=== PATIENT | female | born 1930 | race Caucasian/White ===

== ENCOUNTER 2018-07-18 11:32 | Inpatient (IN) | payer MEDICARE, BC ==
--- NOTE | 2018-07-18 12:42 | RADIOLOGY REPORT (SQ) ---
EXAM DESCRIPTION: KNEE LEFT 2 VIEWS; HIP LEFT AP/LATERAL COMPLETED DATE/TIME: 07/18/2018 12:23 pm REASON FOR STUDY: LLE shortened/rotated COMPARISON: None. NUMBER OF VIEWS: Four views. TECHNIQUE: AP and lateral radiographic images acquired of the left knee. AP view of the pelvis and cross-table view of the left hip. LIMITATIONS: Patient positioning. FINDINGS: There is suboptimal patient positioning. There is diffuse osteopenia. There is a displaced, comminuted, spiral fracture through the shaft of the left femur. The pelvic ring appears intact. Orthopedic hardware is transfixing a remote fracture at the left hip . Degenerative changes are noted at the left knee. Degenerative changes also noted at the visualize d lower lumbar spine and sacroiliac joints. Suture material and surgical clips are seen at the pelvi s. IMPRESSION: Diffuse osteopenia. Displaced, comminuted, spiral fracture through the shaft of the lef t femur. TECHNICAL DOCUMENTATION: JOB ID: [id number] 2010 [employer]- All Rights Reserved Reading location - IP/workstation name: [email or web address]
--- NOTE | 2018-07-18 12:42 | RADIOLOGY REPORT (SQ) ---
EXAM DESCRIPTION: KNEE LEFT 2 VIEWS; HIP LEFT AP/LATERAL COMPLETED DATE/TIME: 07/18/2018 12:23 pm REASON FOR STUDY: LLE shortened/rotated COMPARISON: None. NUMBER OF VIEWS: Four views. TECHNIQUE: AP and lateral radiographic images acquired of the left knee. AP view of the pelvis and cross-table view of the left hip. LIMITATIONS: Patient positioning. FINDINGS: There is suboptimal patient positioning. There is diffuse osteopenia. There is a displaced, comminuted, spiral fracture through the shaft of the left femur. The pelvic ring appears intact. Orthopedic hardware is transfixing a remote fracture at the left hip . Degenerative changes are noted at the left knee. Degenerative changes also noted at the visualize d lower lumbar spine and sacroiliac joints. Suture material and surgical clips are seen at the pelvi s. IMPRESSION: Diffuse osteopenia. Displaced, comminuted, spiral fracture through the shaft of the lef t femur. TECHNICAL DOCUMENTATION: JOB ID: [id number] 2010 [employer]- All Rights Reserved Reading location - IP/workstation name: [email or web address]
[2018-07-18 12:46] LABS: ABSOLUTE EOSINOPHILS # (AUTO) 0.1 10^3/uL (0.0-0.6); ABSOLUTE LYMPHOCYTES (AUTO) 1.4 10^3/uL (0.5-4.7); ABSOLUTE MONOCYTES (AUTO) 0.7 10^3/uL (0.1-1.4); ABSOLUTE NEUT (AUTO) 4.8 10^3/uL (1.7-8.2); BASOPHILS % (AUTO) 0.2 % (0-2); EOSINOPHILS % (AUTO) 1.6 % (0-6); HEMATOCRIT 38.8 % (36.0-47.0); HEMOGLOBIN 13.1 g/dL (12.0-15.5); LYMPHOCYTES % (AUTO) 20.2 % (13-45); MEAN CORPUSCULAR HEMOGLOBIN 32.2 pg (27.0-33.4); MEAN CORPUSCULAR HGB CONC 33.7 g/dL (32.0-36.0); MEAN CORPUSCULAR VOLUME 96 fl (80-97); MONOCYTES % (AUTO) 9.6 % (3-13); PLATELET COUNT 286 10^3/uL (150-450); RED BLOOD COUNT 4.06 10^6/uL (3.72-5.28); RED CELL DISTRIBUTION WIDTH 14.2 % (11.5-14.0); SEGMENTED NEUTROPHILS % (AUTO) 68.4 % (42-78); TOTAL CELLS COUNTED % (AUTO) 100 %
[2018-07-18 13:01] LABS: ANION GAP 8 (5-19); BLOOD UREA NITROGEN 29 mg/dL (7-20); CALCIUM 9.9 mg/dL (8.4-10.2); CARBON DIOXIDE 30 mmol/L (22-30); CHLORIDE 102 mmol/L (98-107); GLUCOSE 100 mg/dL (75-110); POTASSIUM 5.3 mmol/L (3.6-5.0)
[2018-07-18 13:03] LABS: INTERNATIONAL RATION (INR) 0.92; PROTHROMBIN TIME 12.8 SEC (11.4-15.4)
[2018-07-18 13:04] LABS: PARTIAL THROMBOPLASTIN TIME 28.6 SEC (23.5-35.8)
[2018-07-18] MEDS ORDERED: MORPHINE SULFATE 10 MG/ML INJ IV ONE (13:24)
[2018-07-18] MEDS ORDERED: ONDANSETRON HCL INJ/PF 4 MG/2 ML SDV IV ONE (13:24)
[2018-07-18] MEDS ORDERED: RINGERS SOLUTION,LACTATED 1,000 ML IV ONE (13:28)
[2018-07-18] MEDS ORDERED: FENTANYL CITRATE INJ/PF 100 MCG/2 ML AMPUL IV ONE (13:54)
--- NOTE | 2018-07-18 13:55 | ER Document Report ---
ED General - General Chief Complaint: Fall Stated Complaint: LEG PAIN Time Seen by Provider: 07/18/18 11:38 TRAVEL OUTSIDE OF THE [place] IN LAST 30 DAYS: No - HPI Patient complains to provider of: Left leg pain Notes: Patient coming in after a fall expressing left leg pain. Patient that she was standing up when she twisted around to leave falling down patient states had a fall back in November had hip fracture which was repaired in [place]. Patient this time denies any loss of consciousness denies any chest pain abdominal pain. Patient states that this was a possible trip and fall but did not pass out. Patient otherwise resting comfortably upon my evaluation with a shortened left leg - Related Data Allergies/Adverse Reactions: amoxicillin [From Augmentin] Allergy (Verified 07/18/18 11:42) clavulanic acid [From Augmentin] Allergy (Verified 07/18/18 11:42) Past Medical History - Social History Smoking Status: Never Smoker Family History: None Patient has suicidal ideation: No Patient has homicidal ideation: No - Past Medical History Cardiac Medical History: Reports: Hx Hypercholesterolemia, Hx Hypertension Renal/ Medical History: Denies: Hx Peritoneal Dialysis Past Surgical History: Reports: Hx Orthopedic Surgery Review of Systems - Review of Systems Constitutional: No symptoms reported EENT: No symptoms reported Cardiovascular: No symptoms reported Respiratory: No symptoms reported Gastrointestinal: No symptoms reported Genitourinary: No symptoms reported Female Genitourinary: No symptoms reported Musculoskeletal: Other - Left leg pain Skin: No symptoms reported Hematologic/Lymphatic: No symptoms reported Neurological/Psychological: No symptoms reported -: Yes All other systems reviewed and negative Physical Exam - Vital signs Vitals: Temp 98 F 07/18/18 11:44 Interpretation: Normal - General General appearance: Appears well, Alert - HEENT Head: Normocephalic, Atraumatic Eyes: Normal Pupils: PERRL - Respiratory Respiratory status: No respiratory distress Chest status: Nontender Breath sounds: Normal Chest palpation: Normal - Cardiovascular Rhythm: Regular Heart sounds: Normal auscultation Murmur: No - Abdominal Inspection: Normal Distension: No distension Bowel sounds: Normal Tenderness: Nontender Organomegaly: No organomegaly - Back Back: Normal, Nontender - Extremities General upper extremity: Normal inspection, Nontender, Normal color, Normal ROM, Normal temperature General lower extremity: Normal inspection, Normal color, Normal temperature, Other - Tenderness palpation of the left leg with obvious shortening pulses are intact distally on the left leg and right leg unaffected - Neurological Neuro grossly intact: Yes Cognition: Normal Orientation: AAOx4 Honor Coma Scale Eye Opening: Spontaneous Honor Coma Scale Verbal: Oriented Yvon Coma Scale Motor: Obeys Commands Yvon Coma Scale Total: 15 Speech: Normal Motor strength normal: LUE, RUE, LLE, RLE Sensory: Normal - Psychological Associated symptoms: Normal affect, Normal mood - Skin Skin Temperature: Warm Skin Moisture: Dry Skin Color: Normal Course - Re-evaluation Re-evalutation: 07/18/18 15:48 X-ray shows a fracture basic laboratory studies were performed showing slight elevation of potassium no EKG changes patient was started on maintenance fluids did discuss with Dr. knott he will see the patient in consult. Patient will be admitted to the hospital staff - Vital Signs Vital signs: Temp Pulse Resp BP Pulse Ox 98.1 F 16 119/63 95 07/18/18 15:25 07/18/18 14:01 07/18/18 14:01 07/18/18 14:01 - Laboratory Result Diagrams: 07/18/18 12:09 07/18/18 12:09 Laboratory results interpreted by me: 07/18/18 07/18/18 12:09 12:09 RDW 14.2 H Potassium 5.3 H BUN 29 H Discharge - Discharge Clinical Impression: Femur fracture, left Qualifiers: Encounter type: initial encounter Condition: Good Disposition: ADMITTED INPATIENT Admitting Provider: [facility] Admitted: Telemetry
[2018-07-18] MEDS ORDERED: ONDANSETRON HCL INJ/PF 4 MG/2 ML SDV IV PRN (14:36)
[2018-07-18] MEDS ORDERED: FENTANYL CITRATE INJ/PF 100 MCG/2 ML AMPUL IV PRN (14:46)
--- NOTE | 2018-07-18 17:00 | RADIOLOGY REPORT (SQ) ---
EXAM DESCRIPTION: CT HEAD WITHOUT COMPLETED DATE/TIME: 07/18/2018 4:29 pm REASON FOR STUDY: Fall COMPARISON: None. TECHNIQUE: Axial images acquired through the brain without intravenous contrast. Images reviewed wi th bone, brain and subdural windows. Images stored on PACS. All CT scanners at this facility use dose modulation, iterative reconstruction, and/or weight based d osing when appropriate to reduce radiation dose to as low as reasonably achievable (ALARA). [facility]: Dose Right [facility]: CareDose [facility]: Dose Right [facility]: Teradose 4D [facility]: Smart Freshplum RADIATION DOSE: CT Rad equipment meets quality standard of care and radiation dose reduction techniq ues were employed. CTDIvol: 53.2 mGy. DLP: 1017 mGy-cm.mGy. LIMITATIONS: None. FINDINGS: VENTRICLES: Prominent. CEREBRUM: No mass effect. No hemorrhage. No midline shift. Areas of low density in the white matte r most likely due to chronic micro-vascular ischemic change. No evidence for acute territorial infar ction. CEREBELLUM: No hemorrhage. No alteration of density. No evidence for acute infarction. EXTRAAXIAL SPACES: Age-related involutional change. No fluid collections. ORBITS AND GLOBE: Symmetrical contour of the globes. CALVARIUM: No depressed fracture. PARANASAL SINUSES: No air-fluid level. SOFT TISSUES: No hematoma. IMPRESSION: No acute intracranial hemorrhage or depressed calvarial fracture. Chronic changes of at rophy and microvascular ischemia. EVIDENCE OF ACUTE STROKE: NO. TECHNICAL DOCUMENTATION: JOB ID: [id number] [facility] Quality ID # [id number]: Final reports with documentation of one or more dose reduction techniques (e.g., Au tomated exposure control, adjustment of the mA and/or kV according to patient size, use of iterative reconstruction technique) 2010 [employer]- All Rights Reserved Reading location - IP/workstation name: [email or web address]
--- NOTE | 2018-07-18 17:23 | PDOC H&P ---
History of Present Illness Admission Date/PCP: 07/18/18 14:51 MADDIE SORIANO PA-C Patient complains of: Fall and left thigh pain History of Present Illness: SG JEREZ is a 87 year old woman who has a history of left hip fracture repair. She states that she was in her home today moving about slowly with her walker. She states that she took a step with her left foot and then collapsed to the ground and then felt severe left thigh and hip pain. She was brought into the hospital via EMS. She states that she remembers all of the events. She did fall back against a dresser hitting her head. No current headache. The fall was not preceded by dizziness, confusion or chest pain. He has had no fevers or chills at home. No cough or body aches. She does not really know what happened and she is very frustrated as she has now fractured her left hip for the second time. In terms of the hip pain2 mg of IV morphine did not alleviate the pain. 50 mcg of fentanyl did. Keeping the hip and leg still also helps with the pain. Moving about makes it worse. The pain is severe when she feels it. She is having some left thigh cramping associated with the pain. Past Medical History Past Medical History: Hypothyroidism, L-spine compression fracture for which she is on chronic hydrocodone Cardiac Medical History: Reports: Coronary Artery Disease, Hyperlipidema, Hypertension Pulmonary Medical History: Denies: Chronic Obstructive Pulmonary Disease (COPD), Respiratory Failure EENT Medical History: Denies: None Neurological Medical History: Denies: Ischemic CVA, Multiple Sclerosis, Seizures Endocrine Medical History: Denies: Diabetes Mellitus Type 2 Renal/ Medical History: Denies: Chronic Kidney Disease Malignancy Medical History: Denies: Breast Cancer, Colorectal Cancer GI Medical History: Reports: Diverticulitis Denies: Gastroesophageal Reflux Disease Musculoskeltal Medical History: Reports: Arthritis Denies: Fibromyalgia Skin Medical History: Denies: Eczema, Psoriasis Psychiatric Medical History: Denies: Alcohol Dependency, Bipolar Disorder, Depression, General Anxiety Disorder, Substance Abuse, Tobacco Dependency Traumatic Medical History: Denies: Traumatic Brain Injury Hematology: Denies: Bleeding Tendencies Infectious Medical History: Reports: None Past Surgical History Past Surgical History: Reports: Appendectomy, Cholecystectomy - Bowel resection related to diverticulitis, tonsillectomy, Herniorrhaphy, Hysterectomy, Orthopedic Surgery Denies: Mastectomy Social History Information Source: Patient 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 He recently. She moved up to this area to live near her [id number] and her great grandchildren along with one great great grandchild. She has a daughter who lives in another city. She had a second child who is now . - Advance Directive Resuscitation Status: Full Code Surrogate healthcare decision maker:: She names her exshcpqg-nq-clw Betsey Jerez as her healthcare surrogate. She is not sure whether there is legal documentation naming her uxxoxucf-gv-iyn as her healthcare power of deputy county attorney. She thinks that both her daughter and her [id number]-qcx would work together if needed. Family History Family History: Reviewed & Not Pertinent Parental Family History Reviewed: No Children Family History Reviewed: No Sibling(s) Family History Reviewed.: No Medication/Allergy Home Medications: Aspirin [Aspirin 81 mg Chewable Tablet] 81 mg PO MOWEFR@1000 07/18/18 Atenolol [Tenormin] 25 mg PO DAILY 07/18/18 Hydrocodone Bit/Acetaminophen [Hydrocodon-Acetaminophn 10-325] 1 each PO QIDP P RN 07/18/18 Levothyroxine Sodium [Synthroid 0.1 mg Tablet] 0.1 mg PO Q6AM 07/18/18 Allergies/Adverse Reactions: amoxicillin [From Augmentin] Allergy (Verified 07/18/18 11:42) clavulanic acid [From Augmentin] Allergy (Verified 07/18/18 11:42) Review of Systems Constitutional: ABSENT: chills, fever(s), headache(s) Eyes: ABSENT: visual disturbances Ears: ABSENT: hearing changes Nose, Mouth, and Throat: ABSENT: headache(s), sore throat, vertigo Breasts: ABSENT: other - No history of breast problems Cardiovascular: ABSENT: chest pain, dyspnea on exertion, edema, orthropnea, palpitations Respiratory: ABSENT: cough, sputum Gastrointestinal: ABSENT: abdominal pain, constipation, diarrhea, dysphagia, hematemesis, nausea, vomiting Musculoskeletal: PRESENT: back pain, muscle weakness. ABSENT: joint swelling Integumentary: ABSENT: diaphoresis, wounds Neurological: PRESENT: weakness. ABSENT: confusion, dizziness, syncope, vertigo Psychiatric: ABSENT: anxiety, depression Endocrine: PRESENT: other - Is treated for hypothyroidism. ABSENT: cold intolerance, heat intolerance Hematologic/Lymphatic: ABSENT: easy bleeding, easy bruising Allergic/Immunologic: ABSENT: seasonal rhinorrhea Physical Exam Vital Signs: Temp Pulse Resp BP Pulse Ox 98.1 F 70 16 129/54 H 100 07/18/18 15:25 07/18/18 14:36 07/18/18 14:36 07/18/18 14:36 07/18/18 14:36 Intake & Output 07/17/18 07/18/18 07/19/18 06:59 06:59 06:59 Weight 54.4 kg General appearance: PRESENT: no acute distress, cooperative, well-developed, well-nourished Head exam: PRESENT: other - Patient has mild to moderate bitemporal wasting. ABSENT: atraumatic, normocephalic Eye exam: PRESENT: EOMI. ABSENT: conjunctival injection, periorbital swelling, scleral icterus Ear exam: PRESENT: normal external ear exam Mouth exam: PRESENT: moist, tongue midline Neck exam: ABSENT: tenderness Respiratory exam: PRESENT: clear to auscultation delfina, unlabored. ABSENT: rales, rhonchi, wheezes Cardiovascular exam: PRESENT: RRR, systolic murmur Pulses: PRESENT: normal radial pulses Vascular exam: PRESENT: normal capillary refill GI/Abdominal exam: PRESENT: normal bowel sounds, soft. ABSENT: ascites, distended, guarding, tenderness Rectal exam: PRESENT: deferred Gentrourinary exam: ABSENT: indwelling catheter Extremities exam: ABSENT: full ROM, pedal edema Musculoskeletal exam: PRESENT: deformity - left leg is shortened and externally rotated. ABSENT: ambulatory Neurological exam: PRESENT: alert, awake, oriented to person, oriented to place, oriented to situation, CN II-XII grossly intact. ABSENT: motor sensory deficit Psychiatric exam: PRESENT: appropriate affect. ABSENT: anxious Skin exam: PRESENT: dry, intact, warm. ABSENT: rash Results Laboratory Results: 07/18/18 12:09 07/18/18 12:09 07/18/18 07/18/18 12:09 12:09 WBC 7.0 RBC 4.06 Hgb 13.1 Hct 38.8 MCV 96 MCH 32.2 MCHC 33.7 RDW 14.2 H Plt Count 286 Seg Neutrophils % 68.4 Lymphocytes % 20.2 Monocytes % 9.6 Eosinophils % 1.6 Basophils % 0.2 Absolute Neutrophils 4.8 Absolute Lymphocytes 1.4 Absolute Monocytes 0.7 Absolute Eosinophils 0.1 Absolute Basophils 0.0 Sodium 140.0 Potassium 5.3 H Chloride 102 Carbon Dioxide 30 Anion Gap 8 BUN 29 H Creatinine 0.85 Est GFR ( Amer) > 60 Est GFR (Non-Af Amer) > 60 Glucose 100 Calcium 9.9 07/18/18 12:09 Troponin I 0.026 Impressions: Head CT 07/18/18 00:00 IMPRESSION: No acute intracranial hemorrhage or depressed calvarial fracture. Chronic changes of atrophy and microvascular ischemia. EVIDENCE OF ACUTE STROKE: NO. Hip X-Ray 07/18/18 11:36 IMPRESSION: Diffuse osteopenia. Displaced, comminuted, spiral fracture through the shaft of the left femur. Knee X-Ray 07/18/18 11:36 IMPRESSION: Diffuse osteopenia. Displaced, comminuted, spiral fracture through the shaft of the left femur. Assessment & Plan - Diagnosis (1) Femur fracture, left Qualifiers: Encounter type: initial encounter Is this a current diagnosis for this admission?: Yes Plan: She has an acute displaced comminuted spiral fracture of the left femur after a fall. Dr. Thompson with orthopedic surgery has been consulted to evaluate her. We will Place Antonio catheter in anticipation of surgery. (2) Acute pain Is this a current diagnosis for this admission?: Yes Plan: Patient received 2 mg of IV morphine in the ER which did not help her acute left leg pain at all. She then received 50 mcg of fentanyl x1. He has somewhat of a pain med tolerance given her chronic hydrocodone use for her lumbar compression fracture. I started fentanyl 25 mcg every 6 hours as needed severe pain and Tylenol for mild pain. She will probably need more aggressive pain control than this but I am starting judiciously and we will increase her meds if needed. There are also hold parameters written for the fentanyl use. (3) Hypothyroidism Is this a current diagnosis for this admission?: Yes Plan: We will continue her Synthroid (4) CAD (coronary artery disease) Is this a current diagnosis for this admission?: Yes Plan: Patient has a slightly elevated troponin at 0.2. We will trend her troponin. She is chest pain-free. We will put her on telemetry. Start her coronary artery disease medications as soon as her medication reconciliation is completed. (5) Hypercholesterolemia Is this a current diagnosis for this admission?: Yes Plan: Start her medication for hypercholesterolemia when her med rec is done. (6) Compression fracture of lumbar spine, non-traumatic Is this a current diagnosis for this admission?: Yes Plan: Patient has chronic back pain related to this. She is on chronic hydrocodone. I do not know her dose and am awaiting medication reconciliation. We will restart her home medication. (7) Fall Is this a current diagnosis for this admission?: Yes Plan: Not clear etiology. Patient did not lose consciousness. There were no symptoms which preceded her fall. Her leg got weak and she fell to the ground. She now has a hip fracture. Fall precautions in place. She will clearly need physical therapy. - Time Time Spent: 50 to 70 Minutes Anticipated discharge: Acute Rehab - Inpatient Certification Based on my medical assessment, after consideration of the patient's comorbidities, presenting symptoms, or acuity I expect that the services needed warrant INPATIENT care.: Yes I certify that my determination is in accordance with my understanding of Medicare's requirements for reasonable and necessary INPATIENT services [42 CFR 412.3e].: Yes Medical Necessity: Significant Comorbidiites Make Outpatient Treatment Too Risky, Need Close Monitoring Due to Risk of Patient Decompensation, Need for Pain Control, Need for Surgery, Risk of Complication if Not Cared For in Hospital
[2018-07-18 18:09] LABS: POTASSIUM 4.8 mmol/L (3.6-5.0)
[2018-07-18 18:21] LABS: CREATINE KINASE MB 2.22 ng/mL (<4.55)
[2018-07-18 18:22] LABS: TROPONIN I < 0.012 ng/mL
--- NOTE | 2018-07-18 19:43 | EKG REPORT ---
SEVERITY:- NORMAL ECG - SINUS RHYTHM : Confirmed by: Arlene Tolentino MD 18-Jul-2018 19:42:27
[2018-07-18] MEDS: HYDROCODONE/ACETAMINOPHEN 10-325 MG TABLET PO PRN (20:18)
[2018-07-18 23:38] LABS: CREATINE KINASE MB 1.36 ng/mL (<4.55); TROPONIN I < 0.012 ng/mL
[2018-07-18 23:42] LABS: APPEARANCE,URINE SLIGHTLY-CLOUDY; BILIRUBIN,URINE NEGATIVE (NEGATIVE); COLOR,URINE YELLOW; GLUCOSE, URINE NEGATIVE (NEGATIVE); KETONES,URINE NEGATIVE (NEGATIVE); LEUKOCYTE ESTERASE,URINE NEGATIVE (NEGATIVE); NITRITE,URINE NEGATIVE (NEGATIVE); PROTEIN,URINE NEGATIVE (NEGATIVE); URINE SPECIFIC GRAVITY 1.024
[2018-07-19] MEDS: HYDROCODONE/ACETAMINOPHEN 10-325 MG TABLET PO PRN ×3 (03:44→18:27)
[2018-07-19] MEDS: RINGERS SOLUTION,LACTATED 1,000 ML IV PRN (03:45)
[2018-07-19] MEDS: LEVOTHYROXINE SODIUM 0.1 MG TABLET PO SCH (05:27)
[2018-07-19 05:46] LABS: HEMATOCRIT 30.8 % (36.0-47.0); MEAN CORPUSCULAR HEMOGLOBIN 33.2 pg (27.0-33.4); MEAN CORPUSCULAR HGB CONC 34.9 g/dL (32.0-36.0); MEAN CORPUSCULAR VOLUME 95 fl (80-97); PLATELET COUNT 234 10^3/uL (150-450); RED BLOOD COUNT 3.23 10^6/uL (3.72-5.28); WHITE BLOOD COUNT 8.2 10^3/uL (4.0-10.5)
[2018-07-19 05:47] LABS: HEMOGLOBIN 10.7 g/dL (12.0-15.5)
[2018-07-19 06:04] LABS: ANION GAP 5 (5-19); BLOOD UREA NITROGEN 29 mg/dL (7-20); CALCIUM 8.7 mg/dL (8.4-10.2); CARBON DIOXIDE 29 mmol/L (22-30); CHLORIDE 104 mmol/L (98-107); GLUCOSE 95 mg/dL (75-110); POTASSIUM 4.5 mmol/L (3.6-5.0); SODIUM 137.7 mmol/L (137-145)
[2018-07-19 06:13] LABS: CREATINE KINASE MB 1.18 ng/mL (<4.55)
[2018-07-19 06:20] LABS: TROPONIN I < 0.012 ng/mL
[2018-07-19] MEDS: ATENOLOL 50 MG TABLET PO SCH (09:52)
[2018-07-19 11:53] LABS: HEMATOCRIT 30.5 % (36.0-47.0); HEMOGLOBIN 10.6 g/dL (12.0-15.5); MEAN CORPUSCULAR HEMOGLOBIN 32.7 pg (27.0-33.4); MEAN CORPUSCULAR HGB CONC 34.7 g/dL (32.0-36.0); MEAN CORPUSCULAR VOLUME 94 fl (80-97); PLATELET COUNT 228 10^3/uL (150-450); RED BLOOD COUNT 3.23 10^6/uL (3.72-5.28); RED CELL DISTRIBUTION WIDTH 13.8 % (11.5-14.0); WHITE BLOOD COUNT 7.4 10^3/uL (4.0-10.5)
[2018-07-19] MEDS ORDERED: FENTANYL CITRATE INJ/PF 100 MCG/2 ML AMPUL IV PRN (12:38)
--- NOTE | 2018-07-19 12:48 | PDOC PROGRESS REPORT ---
Subjective Progress Note for:: 07/19/18 Subjective:: Patient's pain has been fairly well controlled. She woke herself up last night when she moved and had severe pain but otherwise the regimen seems to be adequate. She and I discussed that the orthopedic surgeon will see her today and that she can have some food until midnight tonight. She is not having any chest pain or difficulty breathing. No fevers or chills. Has not moved her bowels since admission. Good urine output in the [place] bag. Reason For Visit: LEFT HIP AND FEMUR FRACTURE Physical Exam Vital Signs: Temp Pulse Resp BP Pulse Ox 98.5 F 70 14 101/42 L 97 07/19/18 07:48 07/19/18 07:48 07/19/18 07:48 07/19/18 07:48 07/19/18 07:48 Intake & Output 07/18/18 07/19/18 07/20/18 06:59 06:59 06:59 Intake Total 1000 Output Total 720 Balance 280 Weight 55.2 kg General appearance: PRESENT: no acute distress, cooperative, thin Head exam: PRESENT: atraumatic, normocephalic Eye exam: PRESENT: EOMI. ABSENT: conjunctival injection, scleral icterus Ear exam: PRESENT: normal external ear exam Mouth exam: PRESENT: dry mucosa Respiratory exam: PRESENT: clear to auscultation delfina, unlabored. ABSENT: rales, rhonchi, wheezes Cardiovascular exam: PRESENT: RRR, systolic murmur Pulses: PRESENT: normal radial pulses, normal dorsalis pedis pul Vascular exam: ABSENT: pallor GI/Abdominal exam: PRESENT: normal bowel sounds, soft. ABSENT: ascites, distended, guarding, tenderness Rectal exam: PRESENT: deferred Gentrourinary exam: PRESENT: indwelling catheter Extremities exam: ABSENT: pedal edema Musculoskeletal exam: PRESENT: deformity - left leg shortened and ext rotated Neurological exam: PRESENT: alert, awake, oriented to person, oriented to place, oriented to situation, CN II-XII grossly intact, other - sensation intact in let foot, able to move her toes Psychiatric exam: PRESENT: appropriate affect. ABSENT: anxious Results Laboratory Results: 07/19/18 11:29 07/19/18 04:47 07/18/18 07/18/18 07/18/18 12:09 12:09 17:27 WBC 7.0 RBC 4.06 Hgb 13.1 Hct 38.8 MCV 96 MCH 32.2 MCHC 33.7 RDW 14.2 H Plt Count 286 Seg Neutrophils % 68.4 Lymphocytes % 20.2 Monocytes % 9.6 Eosinophils % 1.6 Basophils % 0.2 Absolute Neutrophils 4.8 Absolute Lymphocytes 1.4 Absolute Monocytes 0.7 Absolute Eosinophils 0.1 Absolute Basophils 0.0 Sodium 140.0 Potassium 5.3 H 4.8 Chloride 102 Carbon Dioxide 30 Anion Gap 8 BUN 29 H Creatinine 0.85 Est GFR ( Amer) > 60 Est GFR (Non-Af Amer) > 60 Glucose 100 Calcium 9.9 Magnesium TSH Urine Color Urine Appearance Urine pH Ur Specific [place] Urine Protein Urine Glucose (UA) Urine Ketones Urine Blood Urine Nitrite Ur Leukocyte Esterase Urine WBC (Auto) Urine RBC (Auto) 07/18/18 07/19/18 07/19/18 23:24 04:47 05:25 WBC 8.2 RBC 3.23 L Hgb 10.7 L D Hct 30.8 L MCV 95 MCH 33.2 MCHC 34.9 RDW 14.0 Plt Count 234 Seg Neutrophils % Lymphocytes % Monocytes % Eosinophils % Basophils % Absolute Neutrophils Absolute Lymphocytes Absolute Monocytes Absolute Eosinophils Absolute Basophils Sodium 137.7 Potassium 4.5 Chloride 104 Carbon Dioxide 29 Anion Gap 5 BUN 29 H Creatinine 0.87 Est GFR ( Amer) > 60 Est GFR (Non-Af Amer) > 60 Glucose 95 Calcium 8.7 Magnesium 2.0 TSH Urine Color YELLOW Urine Appearance SLIGHTLY-CLOUDY Urine pH 5.0 Ur Specific [place] 1.024 Urine Protein NEGATIVE Urine Glucose (UA) NEGATIVE Urine Ketones NEGATIVE Urine Blood LARGE H Urine Nitrite NEGATIVE Ur Leukocyte Esterase NEGATIVE Urine WBC (Auto) 7 Urine RBC (Auto) 120 07/19/18 07/19/18 05:25 11:29 WBC 7.4 RBC 3.23 L Hgb 10.6 L Hct 30.5 L MCV 94 MCH 32.7 MCHC 34.7 RDW 13.8 Plt Count 228 Seg Neutrophils % Lymphocytes % Monocytes % Eosinophils % Basophils % Absolute Neutrophils Absolute Lymphocytes Absolute Monocytes Absolute Eosinophils Absolute Basophils Sodium Potassium Chloride Carbon Dioxide Anion Gap BUN Creatinine Est GFR ( Amer) Est GFR (Non-Af Amer) Glucose Calcium Magnesium TSH 0.90 Urine Color Urine Appearance Urine pH Ur Specific [place] Urine Protein Urine Glucose (UA) Urine Ketones Urine Blood Urine Nitrite Ur Leukocyte Esterase Urine WBC (Auto) Urine RBC (Auto) 07/18/18 07/18/18 07/18/18 12:09 17:27 17:27 Creatine Kinase 93 CK-MB (CK-2) 2.22 Troponin I 0.026 < 0.012 07/18/18 07/18/18 07/19/18 23:05 23:05 05:25 Creatine Kinase 83 81 CK-MB (CK-2) 1.36 Troponin I < 0.012 07/19/18 05:25 Creatine Kinase CK-MB (CK-2) 1.18 Troponin I < 0.012 Impressions: Head CT 07/18/18 00:00 IMPRESSION: No acute intracranial hemorrhage or depressed calvarial fracture. Chronic changes of atrophy and microvascular ischemia. EVIDENCE OF ACUTE STROKE: NO. Hip X-Ray 07/18/18 11:36 IMPRESSION: Diffuse osteopenia. Displaced, comminuted, spiral fracture through the shaft of the left femur. Knee X-Ray 07/18/18 11:36 IMPRESSION: Diffuse osteopenia. Displaced, comminuted, spiral fracture through the shaft of the left femur. Assessment & Plan - Diagnosis (1) Femur fracture, left Qualifiers: Encounter type: initial encounter Is this a current diagnosis for this admission?: Yes Plan: I spoke with Dr. Thompson this morning. He will be in to see her today. He has reviewed her x-rays and the surgery may be really complicated in that this is a refracture of the left hip. He may need help from a colleague and he is thinking that she will go to the OR tomorrow. I will let her eat and we will make her n.p.o. at midnight. We discussed DVT prophylaxis and she dropped her hemoglobin several points so I will not give her a dose of heparin today. I started her on a right leg SCD. (2) Acute pain Is this a current diagnosis for this admission?: Yes Plan: She is on her regular as needed Vicodin for her chronic back pain. 12.5 mcg of fentanyl IV every 6 hours is available for severe pain. (3) Hypothyroidism Is this a current diagnosis for this admission?: Yes Plan: Her Synthroid has been restarted. (4) CAD (coronary artery disease) Is this a current diagnosis for this admission?: Yes Plan: Aspirin on hold for drop in hemoglobin, anticipated bleeding during surgery and will restart KIYA, hopefully tomorrow. Beta-mariola restarted. Echocardiogram ordered for preop evaluation. (5) Hypercholesterolemia Is this a current diagnosis for this admission?: Yes Plan: Home medications started (6) Compression fracture of lumbar spine, non-traumatic Is this a current diagnosis for this admission?: Yes Plan: She uses Vicodin 1 tab p.o. every 6 hours as needed pain, that has been ordered. (7) Fall Is this a current diagnosis for this admission?: Yes Plan: Not entirely clear etiology, it is possible she just got weak and fell. Urinalysis shows blood and a few white cells. I do not think it is likely but I will check a urine culture just in case she has an infection that needs to be treated. When she fell she hit her head against the back of a piece of furniture. CT scan of the head shows no acute changes including no fracture and no bleeding. - Time Time Spent with patient: 25-34 minutes Anticipated discharge: Acute Rehab
--- NOTE | 2018-07-19 12:54 | PDOC CONSULTATION ---
Consultation Consult Date: 07/18/18 Consult reason:: Left femur fracture History of Present Illness Admission Date/PCP: 07/18/18 14:51 MADDIE SORIANO PA-C History of Present Illness: SG OSHEA is a 87 year old female who states that she was turning in some of the felt pain and fell to the ground. Was unable to stand up and get up. She states she ambulates with a walker. She states in November [address] underwent ORIF of her left hip fracture. Currently has moved from [place] to [facility]. Denies any numbness or tingling or paresthesias. Complains of deformity of the left lower extremity and 5 out of 5 pain and muscle spasms in the left thigh. Past Medical History Cardiac Medical History: Reports: Coronary Artery Disease, Hyperlipidema, Hypertension Pulmonary Medical History: Denies: Chronic Obstructive Pulmonary Disease (COPD), Respiratory Failure EENT Medical History: Denies: None Neurological Medical History: Denies: Ischemic CVA, Multiple Sclerosis, Seizures Endocrine Medical History: Denies: Diabetes Mellitus Type 2 Renal/ Medical History: Denies: Chronic Kidney Disease Malignancy Medical History: Denies: Breast Cancer, Colorectal Cancer GI Medical History: Reports: Diverticulitis Denies: Gastroesophageal Reflux Disease Musculoskeltal Medical History: Reports: Arthritis Denies: Fibromyalgia Skin Medical History: Denies: Eczema, Psoriasis Psychiatric Medical History: Denies: Alcohol Dependency, Bipolar Disorder, Depression, General Anxiety Disorder, Substance Abuse, Tobacco Dependency Traumatic Medical History: Denies: Traumatic Brain Injury Hematology: Denies: Bleeding Tendencies Infectious Medical History: Reports: None Past Surgical History Past Surgical History: Reports: Appendectomy, Cholecystectomy - Bowel resection related to diverticulitis, tonsillectomy, Herniorrhaphy, Hysterectomy, Orthopedic Surgery Denies: Mastectomy Social History Lives with: Family Smoking Status: Never Smoker Frequency of Alcohol Use: None Hx Recreational Drug Use: No Drugs: None Hx Prescription Drug Abuse: No - Advance Directive Resuscitation Status: Full Code Family History Family History: Reviewed & Not Pertinent Parental Family History Reviewed: No Children Family History Reviewed: No Sibling(s) Family History Reviewed.: No Medication/Allergy Home Medications: Aspirin [Aspirin 81 mg Chewable Tablet] 81 mg PO MOWEFR@1000 07/18/18 Atenolol [Tenormin] 25 mg PO DAILY 07/18/18 Hydrocodone Bit/Acetaminophen [Hydrocodon-Acetaminophn 10-325] 1 each PO QIDP PRN 07/18/18 Levothyroxine Sodium [Synthroid 0.1 mg Tablet] 0.1 mg PO Q6AM 07/18/18 Allergies/Adverse Reactions: amoxicillin [From Augmentin] Allergy (Verified 07/18/18 11:42) clavulanic acid [From Augmentin] Allergy (Verified 07/18/18 11:42) Review of Systems Review of Systems: Constitutional: [PRESENT: as per HPI. ABSENT: chills, fever(s), headache(s), weight gain, weight loss] Eyes: [ABSENT: visual disturbances] Ears: [ABSENT: hearing changes] Cardiovascular: [ABSENT: chest pain, dyspnea on exertion, edema, orthropnea, p alpitations] Respiratory: [ABSENT: cough, hemoptysis] Gastrointestinal: [ABSENT: abdominal pain, constipation, diarrhea, hematemesis, hematochezia, nausea, vomiting] Genitourinary: [ABSENT: dysuria, hematuria] Musculoskeletal: As per HPI Integumentary: [ABSENT: rash, wounds] Neurological: [ABSENT: abnormal gait, abnormal speech, confusion, dizziness, focal weakness, syncope] Psychiatric: [ABSENT: anxiety, depression, homicidal ideation, suicidal ideation] Endocrine: [ABSENT: cold intolerance, heat intolerance, menstrual abnormalities, polydipsia, polyuria] Hematologic/Lymphatic: [ABSENT: easy bleeding, easy bruising, lymphadenopathy] Physical Exam Vital Signs: Temp Pulse Resp BP Pulse Ox 36.9 C 70 14 101/42 L 97 07/19/18 07:48 07/19/18 07:48 07/19/18 07:48 07/19/18 07:48 07/19/18 07:48 Intake & Output 07/18/18 07/19/18 07/20/18 06:59 06:59 06:59 Intake Total 1000 Output Total 720 Balance 280 Weight 55.2 kg General appearance: PRESENT: no acute distress, thin Eye exam: PRESENT: EOMI, other - White sclera with symmetric pupils. ABSENT: nystagmus Respiratory exam: PRESENT: symmetrical, unlabored. ABSENT: tachypnea Vascular exam: PRESENT: normal capillary refill GI/Abdominal exam: PRESENT: soft. ABSENT: tenderness Neurological exam: PRESENT: alert, awake, oriented to person, oriented to place, oriented to time Psychiatric exam: PRESENT: appropriate affect, normal mood Skin exam: PRESENT: intact. ABSENT: erythema, rash, skin tears Adult Front & Back Image: 1 - Left lower extremity is short and externally rotated. She is able to extend and flex her digits and ankle with good sensation light touch and decent capillary refill. Skin warmth is symmetric to the other extremity. Tenderness to palpation over the left thigh. Pain with any attempted motion of the left lower extremity above the knee. Results Laboratory Results: 07/19/18 11:29 07/19/18 04:47 07/18/18 07/18/18 07/18/18 12:09 12:09 17:27 WBC 7.0 RBC 4.06 Hgb 13.1 Hct 38.8 MCV 96 MCH 32.2 MCHC 33.7 RDW 14.2 H Plt Count 286 Seg Neutrophils % 68.4 Lymphocytes % 20.2 Monocytes % 9.6 Eosinophils % 1.6 Basophils % 0.2 Absolute Neutrophils 4.8 Absolute Lymphocytes 1.4 Absolute Monocytes 0.7 Absolute Eosinophils 0.1 Absolute Basophils 0.0 Sodium 140.0 Potassium 5.3 H 4.8 Chloride 102 Carbon Dioxide 30 Anion Gap 8 BUN 29 H Creatinine 0.85 Est GFR ( Amer) > 60 Est GFR (Non-Af Amer) > 60 Glucose 100 Calcium 9.9 Magnesium TSH Urine Color Urine Appearance Urine pH Ur Specific [place] Urine Protein Urine Glucose (UA) Urine Ketones Urine Blood Urine Nitrite Ur Leukocyte Esterase Urine WBC (Auto) Urine RBC (Auto) 07/18/18 07/19/18 07/19/18 23:24 04:47 05:25 WBC 8.2 RBC 3.23 L Hgb 10.7 L D Hct 30.8 L MCV 95 MCH 33.2 MCHC 34.9 RDW 14.0 Plt Count 234 Seg Neutrophils % Lymphocytes % Monocytes % Eosinophils % Basophils % Absolute Neutrophils Absolute Lymphocytes Absolute Monocytes Absolute Eosinophils Absolute Basophils Sodium 137.7 Potassium 4.5 Chloride 104 Carbon Dioxide 29 Anion Gap 5 BUN 29 H Creatinine 0.87 Est GFR ( Amer) > 60 Est GFR (Non-Af Amer) > 60 Glucose 95 Calcium 8.7 Magnesium 2.0 TSH Urine Color YELLOW Urine Appearance SLIGHTLY-CLOUDY Urine pH 5.0 Ur Specific [place] 1.024 Urine Protein NEGATIVE Urine Glucose (UA) NEGATIVE Urine Ketones NEGATIVE Urine Blood LARGE H Urine Nitrite NEGATIVE Ur Leukocyte Esterase NEGATIVE Urine WBC (Auto) 7 Urine RBC (Auto) 120 07/19/18 07/19/18 05:25 11:29 WBC 7.4 RBC 3.23 L Hgb 10.6 L Hct 30.5 L MCV 94 MCH 32.7 MCHC 34.7 RDW 13.8 Plt Count 228 Seg Neutrophils % Lymphocytes % Monocytes % Eosinophils % Basophils % Absolute Neutrophils Absolute Lymphocytes Absolute Monocytes Absolute Eosinophils Absolute Basophils Sodium Potassium Chloride Carbon Dioxide Anion Gap BUN Creatinine Est GFR ( Amer) Est GFR (Non-Af Amer) Glucose Calcium Magnesium TSH 0.90 Urine Color Urine Appearance Urine pH Ur Specific [place] Urine Protein Urine Glucose (UA) Urine Ketones Urine Blood Urine Nitrite Ur Leukocyte Esterase Urine WBC (Auto) Urine RBC (Auto) 07/18/18 07/18/18 07/18/18 12:09 17:27 17:27 Creatine Kinase 93 CK-MB (CK-2) 2.22 Troponin I 0.026 < 0.012 07/18/18 07/18/18 07/19/18 23:05 23:05 05:25 Creatine Kinase 83 81 CK-MB (CK-2) 1.36 Troponin I < 0.012 07/19/18 05:25 Creatine Kinase CK-MB (CK-2) 1.18 Troponin I < 0.012 Impressions: Head CT 07/18/18 00:00 IMPRESSION: No acute intracranial hemorrhage or depressed calvarial fracture. Chronic changes of atrophy and microvascular ischemia. EVIDENCE OF ACUTE STROKE: NO. Hip X-Ray 07/18/18 11:36 IMPRESSION: Diffuse osteopenia. Displaced, comminuted, spiral fracture through the shaft of the left femur. Knee X-Ray 07/18/18 11:36 IMPRESSION: Diffuse osteopenia. Displaced, comminuted, spiral fracture through the shaft of the left femur. Status: Image reviewed by me - Patient has a spiral fracture of the left femur below her previous hardware for hip fracture. She has a dynamic hip screw in place and intact the lag screw is fully retracted and collapsed Assessment & Plan - Plan Summary Plan Summary: 87-year-old female with left spiral femur fracture. Recently had a dynamic hip screw placed for her left intertrochanteric hip fracture. This is seem to have healed with a malunion. Currently we will continue bedrest and pain control. Spoke with hospitalist who is going to clear the patient for surgery for tomorrow. I discussed the case with Dr. Vance who will do the surgery with me. Discussed several options to tackle the fracture below her previous fixation. Discussed the risk and benefits with the patient and the patient has agreed to consent and proceed with surgery.
--- NOTE | 2018-07-19 16:28 | XCELERA REPORT ---
[address] [address] Transthoracic Echocardiogram Report Name: SG OSHEA Age: 87 yrs Gender: Female : 1930 Patient Status: Inpatient Patient Location: [facility]A Study Date: 07/19/2018 02:23 PM Height: 61 in Weight: 121 lb BSA: 1.5 m2 Reason For Study: preop for surgery tomorrow am Ordering Physician: SHAYNE PERRY Performed By: Kushal Bailey Interpretation Summary Study quality suboptimal. LVEF appears normal visually at 60-65%. RV systolic function appears normal. The transmitral spectral Doppler flow pattern is abnormal for age There is a trace amount of mitral regurgitation AV leaflets appear focally calcified with doppler data provided not suggestive of any signifivccant stenosis. There is a mild to moderate amount of tricuspid regurgitation Right ventricular systolic pressure is normal. The inferior vena cava appeared normal size. The aortic root is normal size. MMode/2D Measurements & Calculations RVDd: 1.6 cm LVIDd: 3.2 cm FS: 47.7 % Ao root diam: 2.8 cm IVSd: 0.78 cm LVIDs: 1.7 cm EDV(Teich): 41.8 ml LVPWd: 0.77 cm ESV(Teich): 8.2 ml Ao root area: 6.3 cm2 LA dimension: 2.5 cm EF(Teich): 80.3 % LVOT diam: 1.3 cm LVOT area: 1.3 cm2 Doppler Measurements & Calculations MV E max natan: MV P1/2t max natan: Ao V2 max: LV V1 max P.0 cm/sec 73.8 cm/sec 131.9 cm/sec 3.9 mmHg MV A max natan: MV P1/2t: 69.3 msec Ao max P.0 mmHg LV V1 max: 72.1 cm/sec MVA(P1/2t): 3.2 cm2 JERI(V,D): 0.96 cm2 99.2 cm/sec MV E/A: 0.55 MV dec slope: 312.3 cm/sec2 MV dec time: 0.21 sec PA V2 max: TR max natan: MV P1/2t-pr_phl: 107.2 cm/sec 271.5 cm/sec 69.3 msec PA max P.6 mmHgTR max P.5 mmHg Left Ventricle The left ventricular ejection fraction is normal. LV EF is 60-65%. The transmitral spectral Doppler flow pattern is abnormal for age. Right Ventricle The right ventricular systolic function is normal. Atria Right atrium not well visualized secondary to technical limitations. The left atrium is not well visualized secondary to technical limitations. Mitral Valve There is mild mitral annular calcification. MV leaflets focally thickened but appear to open well. There is a trace amount of mitral regurgitation. Aortic Valve The aortic valve is not well visualized secondary to technical limitations. Focal calcification. There is a peak gradient of 7 mm of Hg. Tricuspid Valve The tricuspid valve is not well visualized secondary to technical limitations. There is a mild to moderate amount of tricuspid regurgitation. Right ventricular systolic pressure is normal. Pulmonic Valve The pulmonic valve is not well visualized. Great Vessels The aortic root is not well visualized. The aortic root is normal size. The inferior vena cava appeared normal. Effusions Pericardium not well visualized but no obvious pericardial effusion noted in availabe images. : SHAYNE PERRY Sanjay
[2018-07-19] MEDS: ACETAMINOPHEN 325 MG TABLET PO PRN (22:48)
[2018-07-20] MEDS: RINGERS SOLUTION,LACTATED 1,000 ML IV PRN (00:45)
[2018-07-20] MEDS: LEVOTHYROXINE SODIUM 0.1 MG TABLET PO SCH (05:42)
[2018-07-20 06:25] LABS: HEMATOCRIT 29.4 % (36.0-47.0); HEMOGLOBIN 10.2 g/dL (12.0-15.5); MEAN CORPUSCULAR HEMOGLOBIN 32.8 pg (27.0-33.4); MEAN CORPUSCULAR HGB CONC 34.7 g/dL (32.0-36.0); MEAN CORPUSCULAR VOLUME 95 fl (80-97); PLATELET COUNT 185 10^3/uL (150-450); RED BLOOD COUNT 3.11 10^6/uL (3.72-5.28); RED CELL DISTRIBUTION WIDTH 13.5 % (11.5-14.0); WHITE BLOOD COUNT 10.7 10^3/uL (4.0-10.5)
[2018-07-20 06:44] LABS: ANION GAP 6 (5-19); BLOOD UREA NITROGEN 29 mg/dL (7-20); CALCIUM 8.4 mg/dL (8.4-10.2); CARBON DIOXIDE 27 mmol/L (22-30); CHLORIDE 104 mmol/L (98-107); GLUCOSE 105 mg/dL (75-110); POTASSIUM 4.4 mmol/L (3.6-5.0); SODIUM 136.9 mmol/L (137-145)
[2018-07-20] MEDS: HYDROCODONE/ACETAMINOPHEN 10-325 MG TABLET PO PRN (08:16)
[2018-07-20] MEDS ORDERED: RINGERS SOLUTION,LACTATED 1,000 ML IV PRN ×2 (08:32→13:29)
[2018-07-20] MEDS ORDERED: TRANEXAMIC ACID INJ/PF 1,000 MG/10 ML SDV IV PRN (08:33)
[2018-07-20] MEDS ORDERED: CEFAZOLIN 2 GM/D5W RTU 2 GM/50 ML RTUPB IV PRN (08:35)
[2018-07-20] MEDS: ATENOLOL 50 MG TABLET PO SCH (10:00)
[2018-07-20] MEDS ORDERED: KETAMINE HCL INJ 500 MG/10 ML VIAL ONE (10:55)
[2018-07-20] MEDS ORDERED: PROPOFOL INJ 200 MG/20 ML VIAL IV ONE (10:55)
[2018-07-20] MEDS ORDERED: ONDANSETRON HCL INJ/PF 4 MG/2 ML SDV ONE (10:55)
[2018-07-20] MEDS ORDERED: MIDAZOLAM 2 MG/2 ML INJ ONE (10:55)
[2018-07-20] MEDS ORDERED: EPINEPHRINE INJ/PF 1 MG/1 ML AMPULE ONE (10:56)
[2018-07-20] MEDS ORDERED: CEFAZOLIN INJ 1 GM VIAL ONE (10:59)
[2018-07-20] MEDS ORDERED: THROMBIN (BOVINE) TOPICAL 5000 UNIT VIAL ONE (11:17)
[2018-07-20] MEDS ORDERED: BUPIVACAINE HCL 0.5 % INJ/PF 30 ML SDV ONE (11:56)
[2018-07-20] MEDS ORDERED: VANCOMYCIN HCL INJ 1000 MG VIAL ONE (11:57)
--- NOTE | 2018-07-20 13:41 | Operative Report ---
Operative Report DATE OF SURGERY: 07/20/18 PREOPERATIVE DIAGNOSIS: Left femur fracture POSTOPERATIVE DIAGNOSIS: Periprosthetic left femur fracture OPERATION: Open reduction internal fixation left femur fracture SURGEON: KEV JENKINS 1ST SOILS TECHNICIAN: ELMER OLIVAREZ ANESTHESIA: Spinal ESTIMATED BLOOD LOSS: 600 PROCEDURE: With the patient in a lateral position on the operating table left lower extremities prepped and draped in sterile fashion. A longitudinal incision was made over the lateral surface of the thigh and sharp dissection was carried incision down to the iliotibial band. The iliotibial band is split and the underlying vastus lateralis was retracted anteriorly. The underlying fracture is visualized. It was reduced under direct visualization and held in place with a combination of bur brooch and [place] clamps. Subsequently a [place]on 16 hole stainless steel wide 4.5 mm large fragment plate is applied to the lateral sawyer rface of the femur and held in place with fracture reduction's clamps. It secured distally with a combination of 4 screws including locking screws and bicortical screws. Intermediately its anchored by bicortical screws and proximally the plate overlaps the existing DHS plate. 2 cerclage cables were then placed over the midportion of the fracture which is highly comminuted. The fracture reduction and the hardware placement checked fluoroscopically and felt to be adequate. Wound is irrigated. Hemostasis obtained with electrocautery. The wound was closed in layers with interrupted Vicryl followed by jami. A sterile compressive dressings applied and the patient's return to PACU satisfactory condition.
[2018-07-20] MEDS ORDERED: FENTANYL CITRATE INJ/PF 100 MCG/2 ML AMPUL IV PRN ×2 (13:43)
[2018-07-20] MEDS ORDERED: DIPHENHYDRAMINE HCL 50 MG/ML VIAL IV PRN (13:43)
[2018-07-20] MEDS ORDERED: MEPERIDINE HCL/PF INJ 25 MG/1 ML DISP.SYRIN IV PRN (13:43)
[2018-07-20 15:09] LABS: APPEARANCE,URINE TURBID; BILIRUBIN,URINE NEGATIVE (NEGATIVE); COLOR,URINE YELLOW; GLUCOSE, URINE NEGATIVE (NEGATIVE); KETONES,URINE NEGATIVE (NEGATIVE); LEUKOCYTE ESTERASE,URINE MODERATE (NEGATIVE); NITRITE,URINE POSITIVE (NEGATIVE); PROTEIN,URINE >=500 mg/dL (NEGATIVE); URINE SPECIFIC GRAVITY 1.022; UROBILINOGEN,URINE NEGATIVE mg/dL (<2.0)
[2018-07-20] MEDS: OXYCODONE HCL IR 5 MG TABLET PO PRN (15:59)
--- NOTE | 2018-07-20 16:05 | RADIOLOGY REPORT (SQ) ---
EXAM DESCRIPTION: FEMUR LEFT; NO CHG FLUORO COMPLETED DATE/TIME: 07/20/2018 3:34 pm REASON FOR STUDY: ORIF LEFT FEMUR ASST WITH FLUORO IN OR COMPARISON: Left hip and knee films 07/18/2018 FLUOROSCOPY TIME: 0.5 minutes 3 digital C-arm images saved to PACS. TECHNIQUE: Intra-operative images acquired during surgical procedure to evaluate progress. NUMBER OF IMAGES: 3 C-arm images LIMITATIONS: None. FINDINGS: Imaging during ORIF left femur fracture with fixation plate and multiple screws/cerclage w ires IMPRESSION: IMAGE(S) OBTAINED DURING PROCEDURE. COMMENT: Quality ID 145: Final reports for procedures using fluoroscopy that document radiation exp osure indices, or exposure time and number of fluorographic images (if radiation exposure indices are not available) Please consult full operative report of the attending physician for description of the procedure. TECHNICAL DOCUMENTATION: JOB ID: [id number] [employer]- All Rights Reserved Reading location - IP/workstation name: [email or web address]
--- NOTE | 2018-07-20 16:05 | RADIOLOGY REPORT (SQ) ---
EXAM DESCRIPTION: FEMUR LEFT; NO CHG FLUORO COMPLETED DATE/TIME: 07/20/2018 3:34 pm REASON FOR STUDY: ORIF LEFT FEMUR ASST WITH FLUORO IN OR COMPARISON: Left hip and knee films 07/18/2018 FLUOROSCOPY TIME: 0.5 minutes 3 digital C-arm images saved to PACS. TECHNIQUE: Intra-operative images acquired during surgical procedure to evaluate progress. NUMBER OF IMAGES: 3 C-arm images LIMITATIONS: None. FINDINGS: Imaging during ORIF left femur fracture with fixation plate and multiple screws/cerclage w ires IMPRESSION: IMAGE(S) OBTAINED DURING PROCEDURE. COMMENT: Quality ID 145: Final reports for procedures using fluoroscopy that document radiation exp osure indices, or exposure time and number of fluorographic images (if radiation exposure indices are not available) Please consult full operative report of the attending physician for description of the procedure. TECHNICAL DOCUMENTATION: JOB ID: [id number] [employer]- All Rights Reserved Reading location - IP/workstation name: [email or web address]
[2018-07-20] MEDS: MORPHINE SULFATE 10 MG/ML INJ IV PRN ×2 (16:16→18:31)
--- NOTE | 2018-07-20 16:43 | PDOC PROGRESS REPORT ---
Subjective Progress Note for:: 07/20/18 Subjective:: The patient is an 87-year-old female with a past medical history significant for CAD, hypertension, hyperlipidemia, arthritis, hypothyroidism, L-spine compression fracture, chronic pain for which she is on hydrocodone as admitted 07/18/18 for left femur fracture. Patient was seen on morning rounds with her family present. She is found resting in bed comfortably on room air. She reports that her pain is well controlled at present is looking forward to her operative repair today. She denies fever, chills, chest pain, palpitations, dyspnea, orthopnea, abdominal pain, nausea vomiting and diarrhea. She has no other questions or concerns at this time. No concerns per nursing. Reason For Visit: ORIF OF LEFT FEMUR Physical Exam Vital Signs: Temp Pulse Resp BP Pulse Ox 98 F 82 19 132/74 H 100 07/20/18 15:00 07/20/18 15:00 07/20/18 15:00 07/20/18 15:00 07/20/18 15:00 Intake & Output 07/19/18 07/20/18 07/21/18 06:59 06:59 06:59 Intake Total 1000 1520 4100 Output Total 720 1000 2300 Balance 130 076 6770 Weight 55.2 kg 58.4 kg General appearance: PRESENT: no acute distress, cooperative, thin, well-de veloped Head exam: PRESENT: atraumatic, normocephalic Eye exam: PRESENT: conjunctiva pink, EOMI, PERRLA. ABSENT: scleral icterus Ear exam: PRESENT: normal external ear exam Mouth exam: PRESENT: moist, tongue midline Neck exam: ABSENT: carotid bruit, JVD, lymphadenopathy, thyromegaly Respiratory exam: PRESENT: clear to auscultation delfina, symmetrical, unlabored. ABSENT: rales, rhonchi, wheezes Cardiovascular exam: PRESENT: RRR. ABSENT: diastolic murmur, rubs, systolic murmur Pulses: PRESENT: normal dorsalis pedis pul Vascular exam: PRESENT: normal capillary refill GI/Abdominal exam: PRESENT: normal bowel sounds, soft. ABSENT: distended, guar ding, mass, organolmegaly, rebound, tenderness Rectal exam: PRESENT: deferred Gentrourinary exam: PRESENT: indwelling catheter Extremities exam: PRESENT: other - LLE tenderness; shortened and externally rotated. ABSENT: calf tenderness, clubbing, pedal edema Neurological exam: PRESENT: alert, awake, oriented to person, oriented to place, oriented to time, oriented to situation, CN II-XII grossly intact. ABSENT: motor sensory deficit Psychiatric exam: PRESENT: appropriate affect, normal mood. ABSENT: homicidal ideation, suicidal ideation Skin exam: PRESENT: dry, intact, warm. ABSENT: cyanosis, rash Results Laboratory Results: 07/20/18 05:46 07/20/18 05:46 07/19/18 07/20/18 07/20/18 15:45 05:46 05:46 WBC 10.7 H RBC 3.11 L Hgb 10.2 L Hct 29.4 L MCV 95 MCH 32.8 MCHC 34.7 RDW 13.5 Plt Count 185 Sodium 136.9 L Potassium 4.4 Chloride 104 Carbon Dioxide 27 Anion Gap 6 BUN 29 H Creatinine 0.85 Est GFR ( Amer) > 60 Est GFR (Non-Af Amer) > 60 Glucose 105 Calcium 8.4 Magnesium 1.9 Urine Color Urine Appearance Urine pH Ur Specific [place] Urine Protein Urine Glucose (UA) Urine Ketones Urine Blood Urine Nitrite Ur Leukocyte Esterase Urine WBC (Auto) Urine RBC (Auto) Blood Type O POSITIVE Antibody Screen NEGATIVE 07/20/18 14:43 WBC RBC Hgb Hct MCV MCH MCHC RDW Plt Count Sodium Potassium Chloride Carbon Dioxide Anion Gap BUN Creatinine Est GFR ( Amer) Est GFR (Non-Af Amer) Glucose Calcium Magnesium Urine Color YELLOW Urine Appearance TURBID Urine pH 9.0 Ur Specific [place] 1.022 Urine Protein >=500 H Urine Glucose (UA) NEGATIVE Urine Ketones NEGATIVE Urine Blood SMALL H Urine Nitrite POSITIVE H Ur Leukocyte Esterase MODERATE H Urine WBC (Auto) >182 Urine RBC (Auto) 99 Blood Type Antibody Screen 07/18/18 07/18/18 07/18/18 12:09 17:27 17:27 Creatine Kinase 93 CK-MB (CK-2) 2.22 Troponin I 0.026 < 0.012 07/18/18 07/18/18 07/19/18 23:05 23:05 05:25 Creatine Kinase 83 81 CK-MB (CK-2) 1.36 Troponin I < 0.012 07/19/18 05:25 Creatine Kinase CK-MB (CK-2) 1.18 Troponin I < 0.012 Impressions: Head CT 07/18/18 00:00 IMPRESSION: No acute intracranial hemorrhage or depressed calvarial fracture. Chronic changes of atrophy and microvascular ischemia. EVIDENCE OF ACUTE STROKE: NO. Hip X-Ray 07/18/18 11:36 IMPRESSION: Diffuse osteopenia. Displaced, comminuted, spiral fracture through the shaft of the left femur. Knee X-Ray 07/18/18 11:36 IMPRESSION: Diffuse osteopenia. Displaced, comminuted, spiral fracture through the shaft of the left femur. Femur X-Ray 07/20/18 00:00 IMPRESSION: IMAGE(S) OBTAINED DURING PROCEDURE. Fluoroscopy 07/20/18 00:00 IMPRESSION: IMAGE(S) OBTAINED DURING PROCEDURE. Assessment & Plan - Diagnosis (1) Femur fracture, left Qualifiers: Encounter type: initial encounter Is this a current diagnosis for this admission?: Yes Plan: To the OR today for orthopedic repair by Dr. Donna Robles and Dr. Vance. Will defer DVT prophylaxis to orthopedics expertise. Analgesics as needed for pain. Physical therapy when approved by Ortho. Discharge planning is consulted; patient will require short-term rehabilitation at discharge. (2) UTI (urinary tract infection) Qualifiers: Urinary tract infection type: acute cystitis Is this a current diagnosis for this admission?: Yes Plan: Urinalysis is positive for UTI; protein, blood, nitrite, leukoesterase, >182 WBCs. Culture pending. Received IV Vanc and Cefazolin by Ortho; more than adequate coverage for likely Gm neg cause. Will adjust/continue antibiotics as cultures indicate. (3) CAD (coronary artery disease) Is this a current diagnosis for this admission?: Yes Plan: Preop EKG and Echo acceptable. Continue daily ASA. Cardiac diet. (4) Fall Is this a current diagnosis for this admission?: Yes Plan: Patient reported that she became weak and fell. Head CT was negative for acute changes. Urinalysis does not suggest urinary tract infection; cultures pending. Antibiotics as above. Gentle IV fluids. Fall precautions. Physical therapy per orthopedics recommendations. Monitor for sedation related to opiate medications. (5) Hypothyroidism Is this a current diagnosis for this admission?: Yes Plan: Continue home dose Synthroid. - Time Time Spent with patient: Less than 15 minutes Medications reviewed and adjusted accordingly: Yes Anticipated discharge: SNF Within: within 48 hours - Inpatient Certification Based on my medical assessment, after consideration of the patient's comorbidities, presenting symptoms, or acuity I expect that the services needed warrant INPATIENT care.: Yes I certify that my determination is in accordance with my understanding of Medicare's requirements for reasonable and necessary INPATIENT services [42 CFR 412.3e].: Yes Medical Necessity: Need for Surgery
[2018-07-20] MEDS ORDERED: TRANEXAMIC ACID INJ/PF 1,000 MG/10 ML SDV IV ONE (17:00)
[2018-07-20] MEDS: CEFAZOLIN 2 GM/D5W RTU 2 GM/50 ML RTUPB IV SCH (17:47)
[2018-07-20] MEDS: ACETAMINOPHEN 325 MG TABLET PO PRN (18:08)
[2018-07-21] MEDS ORDERED: VANCOMYCIN HCL 1,000 MG in DEXTROSE 5%-WATER 250 ML IV ONE (01:29)
[2018-07-21 01:51] LABS: APPEARANCE,URINE CLOUDY; BILIRUBIN,URINE NEGATIVE (NEGATIVE); COLOR,URINE YELLOW; GLUCOSE, URINE NEGATIVE (NEGATIVE); KETONES,URINE 20 mg/dL (NEGATIVE); LEUKOCYTE ESTERASE,URINE LARGE (NEGATIVE); NITRITE,URINE POSITIVE (NEGATIVE); PROTEIN,URINE 100 mg/dL (NEGATIVE); URINE SPECIFIC GRAVITY 1.027; UROBILINOGEN,URINE NEGATIVE mg/dL (<2.0)
[2018-07-21] MEDS: CEFAZOLIN 2 GM/D5W RTU 2 GM/50 ML RTUPB IV SCH (02:28)
[2018-07-21 05:46] LABS: BLOOD UREA NITROGEN 23 mg/dL (7-20); CALCIUM 8.2 mg/dL (8.4-10.2); CARBON DIOXIDE 26 mmol/L (22-30); CHLORIDE 104 mmol/L (98-107); GLUCOSE 117 mg/dL (75-110)
[2018-07-21 05:47] LABS: ANION GAP 6 (5-19); SODIUM 135.8 mmol/L (137-145)
[2018-07-21] MEDS: LEVOTHYROXINE SODIUM 0.1 MG TABLET PO SCH (05:59)
[2018-07-21 06:13] LABS: HEMATOCRIT 36.2 % (36.0-47.0); MEAN CORPUSCULAR HEMOGLOBIN 31.7 pg (27.0-33.4); MEAN CORPUSCULAR HGB CONC 34.4 g/dL (32.0-36.0); MEAN CORPUSCULAR VOLUME 92 fl (80-97); PLATELET COUNT 143 10^3/uL (150-450); RED BLOOD COUNT 3.92 10^6/uL (3.72-5.28); RED CELL DISTRIBUTION WIDTH 14.3 % (11.5-14.0); WHITE BLOOD COUNT 16.3 10^3/uL (4.0-10.5)
[2018-07-21 06:16] LABS: HEMOGLOBIN 12.4 g/dL (12.0-15.5)
--- NOTE | 2018-07-21 07:07 | PDOC PROGRESS REPORT ---
Subjective Progress Note for:: 07/21/18 Reason For Visit: ORIF OF LEFT FEMUR 87-year-old white female postop day 1 status post open reduction internal fixation of a left periprosthetic femur fracture. Patient complaining of minor discomfort this morning. Physical Exam Vital Signs: Temp Pulse Resp BP Pulse Ox 36.7 C 82 17 116/51 L 98 07/20/18 23:35 07/21/18 02:00 07/20/18 23:35 07/20/18 23:35 07/20/18 23:35 Intake & Output 07/20/18 07/21/18 07/22/18 06:59 06:59 06:59 Intake Total 1520 4150 Output Total 1000 2700 Balance 520 1450 Weight 58.4 kg 58.2 kg General appearance: PRESENT: no acute distress, mild distress Head exam: PRESENT: normocephalic Respiratory exam: PRESENT: unlabored Cardiovascular exam: PRESENT: RRR Pulses: PRESENT: +1 pedal pulses bilateral Vascular exam: PRESENT: normal capillary refill GI/Abdominal exam: PRESENT: soft Rectal exam: PRESENT: deferred Extremities exam: PRESENT: other - Left lower extremity dressing is notable for intact and clean compressive dressing to mid thigh. The OpSite proximal to this has moderate bloody drainage. Distal neurovascular examination is intact. Neurological exam: PRESENT: alert, awake, oriented to person, oriented to place, oriented to time, oriented to situation. ABSENT: motor sensory deficit Skin exam: PRESENT: dry, intact, warm. ABSENT: cyanosis, rash Results Laboratory Results: 07/21/18 05:07 07/21/18 05:07 07/19/18 07/20/18 07/21/18 15:45 14:43 01:26 WBC RBC Hgb Hct MCV MCH MCHC RDW Plt Count Sodium Potassium Chloride Carbon Dioxide Anion Gap BUN Creatinine Est GFR ( Amer) Est GFR (Non-Af Amer) Glucose Calcium Urine Color YELLOW YELLOW Urine Appearance TURBID CLOUDY Urine pH 9.0 5.0 Ur Specific [place] 1.022 1.027 Urine Protein >=500 H 100 H Urine Glucose (UA) NEGATIVE NEGATIVE Urine Ketones NEGATIVE 20 H Urine Blood SMALL H MODERATE H Urine Nitrite POSITIVE H POSITIVE H Ur Leukocyte Esterase MODERATE H LARGE H Urine WBC (Auto) >182 >182 Urine RBC (Auto) 99 42 Blood Type O POSITIVE Antibody Screen NEGATIVE 07/21/18 07/21/18 05:07 05:07 WBC 16.3 H RBC 3.92 Hgb 12.4 D Hct 36.2 MCV 92 MCH 31.7 MCHC 34.4 RDW 14.3 H Plt Count 143 L Sodium 135.8 L Potassium 4.0 Chloride 104 Carbon Dioxide 26 Anion Gap 6 BUN 23 H Creatinine 0.71 Est GFR ( Amer) > 60 Est GFR (Non-Af Amer) > 60 Glucose 117 H Calcium 8.2 L Urine Color Urine Appearance Urine pH Ur Specific [place] Urine Protein Urine Glucose (UA) Urine Ketones Urine Blood Urine Nitrite Ur Leukocyte Esterase Urine WBC (Auto) Urine RBC (Auto) Blood Type Antibody Screen 07/18/18 07/18/18 07/18/18 12:09 17:27 17:27 Creatine Kinase 93 CK-MB (CK-2) 2.22 Troponin I 0.026 < 0.012 07/18/18 07/18/18 07/19/18 23:05 23:05 05:25 Creatine Kinase 83 81 CK-MB (CK-2) 1.36 Troponin I < 0.012 07/19/18 05:25 Creatine Kinase CK-MB (CK-2) 1.18 Troponin I < 0.012 Impressions: Head CT 07/18/18 00:00 IMPRESSION: No acute intracranial hemorrhage or depressed calvarial fracture. Chronic changes of atrophy and microvascular ischemia. EVIDENCE OF ACUTE STROKE: NO. Hip X-Ray 07/18/18 11:36 IMPRESSION: Diffuse osteopenia. Displaced, comminuted, spiral fracture through the shaft of the left femur. Knee X-Ray 07/18/18 11:36 IMPRESSION: Diffuse osteopenia. Displaced, comminuted, spiral fracture through the shaft of the left femur. Femur X-Ray 07/20/18 00:00 IMPRESSION: IMAGE(S) OBTAINED DURING PROCEDURE. Fluoroscopy 07/20/18 00:00 IMPRESSION: IMAGE(S) OBTAINED DURING PROCEDURE. Status: Imported from PACS Assessment & Plan - Diagnosis (1) Femur fracture, left Qualifiers: Encounter type: initial encounter Femur location: shaft Fracture type: closed Fracture morphology: comminuted Fracture alignment: displaced Qualified Code(s): S72.352A - Displaced comminuted fracture of shaft of left femur, initial encounter for closed fracture Is this a current diagnosis for this admission?: Yes Plan: Patient can be mobilized with physical therapy and a touchdown weightbearing res triction on the left lower extremity. Dressing can be changed on a as needed basis. Compressive dressing to be removed tomorrow. (2) UTI (urinary tract infection) Qualifiers: Urinary tract infection type: acute cystitis Is this a current diagnosis for this admission?: Yes Plan: Patient's urinary cultures are growing Proteus. Patient started on Cipro floxacillin. - Time Time Spent with patient: 15-24 minutes Anticipated discharge: SNF Within: when bed available
[2018-07-21] MEDS: ACETAMINOPHEN 325 MG TABLET PO PRN ×2 (07:45→17:07)
[2018-07-21] MEDS: OXYCODONE HCL IR 5 MG TABLET PO PRN ×2 (07:46→17:08)
[2018-07-21] MEDS: ASPIRIN 81 MG TABLET, ENT COATED PO SCH (10:53)
[2018-07-21] MEDS: ATENOLOL 50 MG TABLET PO SCH (10:53)
[2018-07-21] MEDS: CIPROFLOXACIN HCL 750 MG TABLET PO SCH ×2 (10:54→22:46)
[2018-07-21] MEDS ORDERED: MAGNESIUM HYDROXIDE SUSP 30 ML UDCUP PO PRN (16:24)
[2018-07-21] MEDS ORDERED: BISACODYL 10 MG SUPP.RECT PR ONE (17:30)
[2018-07-21] MEDS: SENNOSIDES/DOCUSATE 8.6-50 MG 1 EACH TABLET PO SCH (18:31)
--- NOTE | 2018-07-21 20:24 | PDOC PROGRESS REPORT ---
Subjective Progress Note for:: 07/21/18 Subjective:: The patient is an 87-year-old female with a past medical history significant for CAD, hypertension, hyperlipidemia, arthritis, hypothyroidism, L-spine compression fracture, chronic pain for which she is on hydrocodone as admitted 07/18/18 for left femur fracture. The patient was seen this morning on rounds. She is resting comfortably in bed. She states she has minimal pain while at rest. Her pain is exacerbated with movement (when working with PT/OT). The patient states she is happy with her pain regimen. Working with discharge planning to make arrangements for acute rehab. Reason For Visit: ORIF OF LEFT FEMUR Physical Exam Vital Signs: Temp Pulse Resp BP Pulse Ox 98.1 F 93 17 116/51 L 98 07/20/18 23:35 07/20/18 23:35 07/20/18 23:35 07/20/18 23:35 07/20/18 23:35 Intake & Output 07/19/18 07/20/18 07/21/18 06:59 06:59 06:59 Intake Total 1000 1520 4150 Output Total 720 1000 2700 Balance 583 985 3270 Weight 55.2 kg 58.4 kg 58.2 kg General appearance: PRESENT: no acute distress, well-developed, well-nourished Eye exam: PRESENT: conjunctiva pink, PERRLA Mouth exam: PRESENT: moist, tongue midline Neck exam: PRESENT: full ROM Respiratory exam: PRESENT: clear to auscultation delfina, symmetrical, unlabored Cardiovascular exam: PRESENT: RRR Pulses: PRESENT: normal radial pulses, normal dorsalis pedis pul Vascular exam: PRESENT: normal capillary refill GI/Abdominal exam: PRESENT: soft. ABSENT: distended Rectal exam: PRESENT: deferred Extremities exam: ABSENT: full ROM, joint swelling Musculoskeletal exam: PRESENT: other - slight external rotation of LLE. ABSENT: ambulatory, full ROM Neurological exam: PRESENT: alert, altered, oriented to person, oriented to place, oriented to time, oriented to situation Psychiatric exam: PRESENT: appropriate affect Skin exam: PRESENT: dry, intact, normal color Results Laboratory Results: 07/20/18 05:46 07/20/18 05:46 07/19/18 07/20/18 07/20/18 15:45 05:46 05:46 WBC 10.7 H RBC 3.11 L Hgb 10.2 L Hct 29.4 L MCV 95 MCH 32.8 MCHC 34.7 RDW 13.5 Plt Count 185 Sodium 136.9 L Potassium 4.4 Chloride 104 Carbon Dioxide 27 Anion Gap 6 BUN 29 H Creatinine 0.85 Est GFR ( Amer) > 60 Est GFR (Non-Af Amer) > 60 Glucose 105 Calcium 8.4 Magnesium 1.9 Urine Color Urine Appearance Urine pH Ur Specific [place] Urine Protein Urine Glucose (UA) Urine Ketones Urine Blood Urine Nitrite Ur Leukocyte Esterase Urine WBC (Auto) Urine RBC (Auto) Blood Type O POSITIVE Antibody Screen NEGATIVE 07/20/18 07/21/18 14:43 01:26 WBC RBC Hgb Hct MCV MCH MCHC RDW Plt Count Sodium Potassium Chloride Carbon Dioxide Anion Gap BUN Creatinine Est GFR ( Amer) Est GFR (Non-Af Amer) Glucose Calcium Magnesium Urine Color YELLOW YELLOW Urine Appearance TURBID CLOUDY Urine pH 9.0 5.0 Ur Specific [place] 1.022 1.027 Urine Protein >=500 H 100 H Urine Glucose (UA) NEGATIVE NEGATIVE Urine Ketones NEGATIVE 20 H Urine Blood SMALL H MODERATE H Urine Nitrite POSITIVE H POSITIVE H Ur Leukocyte Esterase MODERATE H LARGE H Urine WBC (Auto) >182 >182 Urine RBC (Auto) 99 42 Blood Type Antibody Screen 07/18/18 07/18/18 07/18/18 12:09 17:27 17:27 Creatine Kinase 93 CK-MB (CK-2) 2.22 Troponin I 0.026 < 0.012 07/18/18 07/18/18 07/19/18 23:05 23:05 05:25 Creatine Kinase 83 81 CK-MB (CK-2) 1.36 Troponin I < 0.012 07/19/18 05:25 Creatine Kinase CK-MB (CK-2) 1.18 Troponin I < 0.012 Impressions: Head CT 07/18/18 00:00 IMPRESSION: No acute intracranial hemorrhage or depressed calvarial fracture. Chronic changes of atrophy and microvascular ischemia. EVIDENCE OF ACUTE STROKE: NO. Hip X-Ray 07/18/18 11:36 IMPRESSION: Diffuse osteopenia. Displaced, comminuted, spiral fracture through the shaft of the left femur. Knee X-Ray 07/18/18 11:36 IMPRESSION: Diffuse osteopenia. Displaced, comminuted, spiral fracture through the shaft of the left femur. Femur X-Ray 07/20/18 00:00 IMPRESSION: IMAGE(S) OBTAINED DURING PROCEDURE. Fluoroscopy 07/20/18 00:00 IMPRESSION: IMAGE(S) OBTAINED DURING PROCEDURE. Status: Imported from PACS Assessment & Plan - Diagnosis (1) Femur fracture, left Qualifiers: Encounter type: initial encounter Femur location: shaft Fracture type: closed Fracture morphology: comminuted Fracture alignment: displaced Qualified Code(s): S72.352A - Displaced comminuted fracture of shaft of left femur, initial encounter for closed fracture Is this a current diagnosis for this admission?: Yes Plan: POD#1 ORIF Will defer DVT prophylaxis to orthopedics expertise. Analgesics as needed for pain. PT/OT Discharge planning is consulted; patient will require short-term rehabilitation at discharge. (2) UTI (urinary tract infection) Qualifiers: Urinary tract infection type: acute cystitis Is this a current diagnosis for this admission?: Yes Plan: Urinalysis is positive for UTI; protein, blood, nitrite, leukoesterase, >182 WBCs. Culture pending. Received IV Vanc and Cefazolin by Ortho; more than adequate coverage for likely Gm neg cause. Continue Cipro for UTI (3) Hypothyroidism Is this a current diagnosis for this admission?: Yes Plan: Continue home dose Synthroid. (4) CAD (coronary artery disease) Is this a current diagnosis for this admission?: Yes Plan: Preop EKG and Echo acceptable. Continue daily ASA. Cardiac diet. (5) Fall Is this a current diagnosis for this admission?: Yes Plan: Patient reported that she became weak and fell. Head CT was negative for acute changes. Antibiotics as above. Gentle IV fluids. Fall precautions. Physical therapy per orthopedics recommendations. Monitor for sedation related to opiate medications. - Time Time Spent with patient: 15-24 minutes Medications reviewed and adjusted accordingly: Yes Anticipated discharge: Acute Rehab Within: within 36 hours - Inpatient Certification Based on my medical assessment, after consideration of the patient's comorbidities, presenting symptoms, or acuity I expect that the services needed warrant INPATIENT care.: Yes I certify that my determination is in accordance with my understanding of Medicare's requirements for reasonable and necessary INPATIENT services [42 CFR 412.3e].: Yes Medical Necessity: Risk of Complication if Not Cared For in Hospital
[2018-07-22] MEDS: ACETAMINOPHEN 325 MG TABLET PO PRN (03:42)
[2018-07-22 05:47] LABS: HEMATOCRIT 34.2 % (36.0-47.0); HEMOGLOBIN 11.7 g/dL (12.0-15.5); MEAN CORPUSCULAR HEMOGLOBIN 31.8 pg (27.0-33.4); MEAN CORPUSCULAR HGB CONC 34.3 g/dL (32.0-36.0); MEAN CORPUSCULAR VOLUME 93 fl (80-97); PLATELET COUNT 153 10^3/uL (150-450); RED BLOOD COUNT 3.69 10^6/uL (3.72-5.28); RED CELL DISTRIBUTION WIDTH 14.4 % (11.5-14.0); WHITE BLOOD COUNT 13.9 10^3/uL (4.0-10.5)
[2018-07-22] MEDS: LEVOTHYROXINE SODIUM 0.1 MG TABLET PO SCH (05:53)
--- NOTE | 2018-07-22 07:26 | PDOC PROGRESS REPORT ---
Subjective Progress Note for:: 07/22/18 Reason For Visit: ORIF OF LEFT FEMUR 87-year-old white female postop day 2 status post open reduction internal fixation left femur fracture. Patient more comfortable today. Physical Exam Vital Signs: Temp Pulse Resp BP Pulse Ox 36.8 C 72 16 90/55 L 97 07/22/18 00:00 07/22/18 00:00 07/22/18 00:00 07/22/18 00:00 07/22/18 00:00 Intake & Output 07/21/18 07/22/18 07/23/18 06:59 06:59 06:59 Intake Total 4450 961 Output Total 2700 750 Balance 1750 211 Weight 58.2 kg 62.8 kg General appearance: PRESENT: no acute distress, mild distress Head exam: PRESENT: normocephalic Respiratory exam: PRESENT: unlabored Cardiovascular exam: PRESENT: RRR Pulses: PRESENT: +1 pedal pulses bilateral Vascular exam: PRESENT: normal capillary refill GI/Abdominal exam: PRESENT: soft Rectal exam: PRESENT: deferred Extremities exam: PRESENT: other - Compression dressing removed from left lower extremity. Nursing to change the underlying OpSite dressing which is saturated proximally. Neurological exam: PRESENT: alert, awake, oriented to person, oriented to place, oriented to time, oriented to situation. ABSENT: motor sensory deficit Psychiatric exam: PRESENT: appropriate affect, normal mood. ABSENT: homicidal ideation, suicidal ideation Skin exam: PRESENT: dry, intact, warm. ABSENT: cyanosis, rash Results Laboratory Results: 07/22/18 04:53 07/21/18 05:07 07/19/18 07/22/18 15:45 04:53 WBC 13.9 H RBC 3.69 L Hgb 11.7 L Hct 34.2 L MCV 93 MCH 31.8 MCHC 34.3 RDW 14.4 H Plt Count 153 Blood Type O POSITIVE Antibody Screen NEGATIVE 07/18/18 07/18/18 07/18/18 12:09 17:27 17:27 Creatine Kinase 93 CK-MB (CK-2) 2.22 Troponin I 0.026 < 0.012 07/18/18 07/18/18 07/19/18 23:05 23:05 05:25 Creatine Kinase 83 81 CK-MB (CK-2) 1.36 Troponin I < 0.012 07/19/18 05:25 Creatine Kinase CK-MB (CK-2) 1.18 Troponin I < 0.012 Impressions: Head CT 07/18/18 00:00 IMPRESSION: No acute intracranial hemorrhage or depressed calvarial fracture. Chronic changes of atrophy and microvascular ischemia. EVIDENCE OF ACUTE STROKE: NO. Hip X-Ray 07/18/18 11:36 IMPRESSION: Diffuse osteopenia. Displaced, comminuted, spiral fracture through the shaft of the left femur. Knee X-Ray 07/18/18 11:36 IMPRESSION: Diffuse osteopenia. Displaced, comminuted, spiral fracture through the shaft of the left femur. Femur X-Ray 07/20/18 00:00 IMPRESSION: IMAGE(S) OBTAINED DURING PROCEDURE. Fluoroscopy 07/20/18 00:00 IMPRESSION: IMAGE(S) OBTAINED DURING PROCEDURE. Status: Imported from PACS Assessment & Plan - Diagnosis (1) Femur fracture, left Qualifiers: Encounter type: initial encounter Femur location: shaft Fracture type: closed Fracture morphology: comminuted Fracture alignment: displaced Qualified Code(s): S72.352A - Displaced comminuted fracture of shaft of left femur, initial encounter for closed fracture Is this a current diagnosis for this admission?: Yes Plan: Mobilized with physical therapy on restriction of weightbearing (2) UTI (urinary tract infection) Qualifiers: Urinary tract infection type: acute cystitis Is this a current diagnosis for this admission?: Yes Plan: On oral antibiotics - Time Time Spent with patient: 15-24 minutes Anticipated discharge: SNF Within: when bed available
[2018-07-22] MEDS: ASPIRIN 81 MG TABLET, ENT COATED PO SCH (09:57)
[2018-07-22] MEDS: SENNOSIDES/DOCUSATE 8.6-50 MG 1 EACH TABLET PO SCH (09:57)
[2018-07-22] MEDS: CIPROFLOXACIN HCL 750 MG TABLET PO SCH (09:58)
[2018-07-22] MEDS ORDERED: ASPIRIN 81 MG TABLET, CHEWABLE PO SCH (10:00)
--- NOTE | 2018-07-22 10:48 | PDOC TRANSFER SUMMARY ---
General Admission Date/PCP: 07/18/18 14:51 MADDIE SORIANO PA-C Admission Date: 07/18/18 Transfer Date: 07/22/18 Resuscitation Status: Full Code - Transfer Diagnosis (1) Femur fracture, left Is this a current diagnosis for this admission?: Yes (2) UTI (urinary tract infection) Is this a current diagnosis for this admission?: Yes (3) Hypothyroidism Is this a current diagnosis for this admission?: Yes (4) CAD (coronary artery disease) Is this a current diagnosis for this admission?: Yes (5) Fall Is this a current diagnosis for this admission?: Yes - Transfer Medications Home Medications: Atenolol [Tenormin] 25 mg PO DAILY 07/18/18 Levothyroxine Sodium [Synthroid 0.1 mg Tablet] 0.1 mg PO Q6AM 07/18/18 Transfer Medications: Current Medications Acetaminophen (Tylenol 325 Mg Tablet) 650 mg PO Q4HP PRN PRN Reason: MILD PAIN Stop: 08/17/18 14:35 Last Admin: 07/22/18 03:42 Dose: 650 mg Documented by: Aspirin (Ecotrin 81 Mg Ec Tablet) 81 mg PO DAILY [facility] Stop: 08/20/18 09:59 Last Admin: 07/22/18 09:57 Dose: 81 mg Documented by: Atenolol (Tenormin 50 Mg Tablet) 25 mg PO DAILY [facility] Stop: 08/18/18 09:59 Last Admin: 07/21/18 10:53 Dose: 25 mg Documented by: Ciprofloxacin (Cipro 750 Mg Tablet) 750 mg PO Q12 [facility] Stop: 07/28/18 09:59 Last Admin: 07/22/18 09:58 Dose: 750 mg Documented by: Lactated Ringer's (Lactated Ringers 1000 Ml Iv Soln) 1,000 mls @ 150 mls/hr IV CONTINUOUS PRN PRN Reason: THIS MED IS NOT "PRN" Stop: 08/19/18 13:28 Levothyroxine Sodium (Synthroid 0.1 Mg Tablet) 0.1 mg PO Q6AM [facility] Stop: 08/18/18 05:59 Last Admin: 07/22/18 05:53 Dose: 0.1 mg Documented by: Magnesium Hydroxide (Milk Of Magnesia 30 Ml Udcup) 30 ml PO Q6HP PRN PRN Reason: FOR CONSTIPATION Stop: 08/20/18 16:23 Oxycodone HCl (Oxy-Ir 5 Mg Tablet) 5 mg PO Q6HP PRN PRN Reason: PAIN Stop: 07/27/18 14:02 Last Admin: 07/21/18 17:08 Dose: 5 mg Documented by: Senna/Docusate Sodium (Senna Plus Tablet) 2 each PO BID ESTEBAN Stop: 08/20/18 17:59 Last Admin: 07/22/18 09:57 Dose: 2 each Documented by: Sodium Chloride (Saline Flush 2.5 Ml Monoject Prefil Syrin) 2.5 ml IV Q8 ESTEBAN Stop: 08/17/18 21:59 Last Admin: 07/22/18 05:53 Dose: 2.5 ml Documented by: Sodium Chloride (Saline Flush 2.5 Ml Monoject Prefil Syrin) 2.5 ml IV Q8 [facility] Stop: 08/19/18 13:59 Last Admin: 07/22/18 05:54 Dose: Not Given Documented by: - Allergies Allergies/Adverse Reactions: amoxicillin [From Augmentin] Allergy (Verified 07/18/18 11:42) clavulanic acid [From Augmentin] Allergy (Verified 07/18/18 11:42) - Diet/Activity Discharge Diet: As Tolerated Hospital Course Hospital Course: H&P: SG OSHEA is a 87 year old woman who has a history of left hip fracture repair. She states that she was in her home today moving about slowly with her walker. She states that she took a step with her left foot and then collapsed to the ground and then felt severe left thigh and hip pain. She was brought into the hospital via EMS. She states that she remembers all of the events. She did fall back against a dresser hitting her head. No current headache. The fall was not preceded by dizziness, confusion or chest pain. He has had no fevers or chills at home. No cough or body aches. She does not really know what happened and she is very frustrated as she has now fractured her left hip for the second time. In terms of the hip pain2 mg of IV morphine did not alleviate the pain. 50 mcg of fentanyl did. Keeping the hip and leg still also helps with the pain. Moving about makes it worse. The pain is severe when she feels it. She is having some left thigh cramping associated with the pain. Hospital Course: The patient is an 87-year-old female with a past medical history significant for CAD, hypertension, hyperlipidemia, arthritis, hypothyroidism, L-spine compression fracture, chronic pain for which she is on hydrocodone as admitted 07/18/18 for left femur fracture. The patient underwent an open reduction internal fixation of her left periprosthetic femur fracture on 07/20/2018. She has been tolerating PT/OT very well. She has received oxycodone for pain control. Plan to continue aspirin 81mg po daily for DVT prophylaxis. Additionally, it was discovered that the patient had a UTI. She was treated with Ciprofloxacin and will continue to take the medication upon discharge until her antibiotic regimen is completed. Physical Exam Vital Signs: Temp Pulse Resp BP Pulse Ox 98.2 F 72 16 90/55 L 97 07/22/18 00:00 07/22/18 00:00 07/22/18 00:00 07/22/18 00:00 07/22/18 00:00 Intake & Output 07/21/18 07/22/18 07/23/18 06:59 06:59 06:59 Intake Total 4450 961 Output Total 2700 750 Balance 1750 211 Weight 58.2 kg 62.8 kg Results Laboratory Results: 07/22/18 04:53 07/21/18 05:07 07/19/18 07/22/18 15:45 04:53 WBC 13.9 H RBC 3.69 L Hgb 11.7 L Hct 34.2 L MCV 93 MCH 31.8 MCHC 34.3 RDW 14.4 H Plt Count 153 Blood Type O POSITIVE Antibody Screen NEGATIVE 07/18/18 07/18/18 07/18/18 12:09 17:27 17:27 Creatine Kinase 93 CK-MB (CK-2) 2.22 Troponin I 0.026 < 0.012 07/18/18 07/18/18 07/19/18 23:05 23:05 05:25 Creatine Kinase 83 81 CK-MB (CK-2) 1.36 Troponin I < 0.012 07/19/18 05:25 Creatine Kinase CK-MB (CK-2) 1.18 Troponin I < 0.012 Impressions: Head CT 07/18/18 00:00 IMPRESSION: No acute intracranial hemorrhage or depressed calvarial fracture. Chronic changes of atrophy and microvascular ischemia. EVIDENCE OF ACUTE STROKE: NO. Hip X-Ray 07/18/18 11:36 IMPRESSION: Diffuse osteopenia. Displaced, comminuted, spiral fracture through the shaft of the left femur. Knee X-Ray 07/18/18 11:36 IMPRESSION: Diffuse osteopenia. Displaced, comminuted, spiral fracture through the shaft of the left femur. Femur X-Ray 07/20/18 00:00 IMPRESSION: IMAGE(S) OBTAINED DURING PROCEDURE. Fluoroscopy 07/20/18 00:00 IMPRESSION: IMAGE(S) OBTAINED DURING PROCEDURE. Status: Imported from PACS Plan Discharge Plan: FOLLOW UP WITH DR OLIVAREZ ON Friday07/28/2018. CONTINUE DAILY ASPIRIN. Time Spent: Greater than 30 Minutes
[2018-07-22] MEDS: ATENOLOL 50 MG TABLET PO SCH (12:01)
[2018-07-22 13:03] VITALS: BP 101/47
[2018-07-22] MEDS: OXYCODONE HCL IR 5 MG TABLET PO PRN (13:21)
[2018-07-23] MEDS ORDERED: ATENOLOL 50 MG TABLET PO SCH (10:00)
== END 2018-07-22 15:43 | DRG 481 ==
LOC: ER 11:32 → EH 14:51 → 4N 16:35
PROVIDERS: ADMIT Internal Medicine; ATTEND Internal Medicine
PROC: 30233N1 Transfusion of Nonautologous Red Blood Cells into Peripheral Vein, Percutaneous Approach (ICD-10-PCS; 2018-07-20)
PROC: 0QSC04Z Reposition Left Lower Femur with Internal Fixation Device, Open Approach (ICD-10-PCS; principal; 2018-07-20 11:30)
DX: M97.02XA Periprosthetic fracture around internal prosthetic left hip joint, initial encounter (principal); M48.56XA Collapsed vertebra, not elsewhere classified, lumbar region, initial encounter for fracture; N30.00 Acute cystitis without hematuria; E03.9 Hypothyroidism, unspecified; I25.10 Atherosclerotic heart disease of native coronary artery without angina pectoris; W01.0XXA Fall on same level from slipping, tripping and stumbling without subsequent striking against object, initial encounter; I10 Essential (primary) hypertension; E78.00 Pure hypercholesterolemia, unspecified; G89.29 Other chronic pain; Z88.0 Allergy status to penicillin; Z90.49 Acquired absence of other specified parts of digestive tract; Z90.710 Acquired absence of both cervix and uterus; Z79.899 Other long term (current) drug therapy; Z79.82 Long term (current) use of aspirin; Z79.891 Long term (current) use of opiate analgesic; Z79.890 Hormone replacement therapy
CPT/HCPCS: 01230; 36415; 36430; 70450; 80048; 81001; 82550; 82553; 83735; 84132; 84443; 84484; 85025; 85027; 85610; 85730; 86850; 86900; 86901; 86920; 87086; 87088; 87186; 93005; 93010; 93306; 94799; 96361; 96374; 96375; 99285; J0171; J0690; J2250; J2270; J2405; J2704; J3010; J3370; J3490; J7060; J7120; P9016

== ENCOUNTER → 2018-12-22 | Outpatient (CLI) | payer MEDICARE, BC ==
[2018-12-22 15:50] LABS: ABSOLUTE EOSINOPHILS # (AUTO) 0.1 10^3/uL (0.0-0.6); ABSOLUTE MONOCYTES (AUTO) 1.1 10^3/uL (0.1-1.4); ABSOLUTE NEUT (AUTO) 4.8 10^3/uL (1.7-8.2); BASOPHILS % (AUTO) 0.3 % (0-2); EOSINOPHILS % (AUTO) 1.5 % (0-6); HEMATOCRIT 33.7 % (36.0-47.0); HEMOGLOBIN 11.2 g/dL (12.0-15.5); LYMPHOCYTES % (AUTO) 14.5 % (13-45); MEAN CORPUSCULAR HEMOGLOBIN 30.9 pg (27.0-33.4); MEAN CORPUSCULAR HGB CONC 33.4 g/dL (32.0-36.0); MEAN CORPUSCULAR VOLUME 92 fl (80-97); MONOCYTES % (AUTO) 15.7 % (3-13); PLATELET COUNT 361 10^3/uL (150-450); RED BLOOD COUNT 3.64 10^6/uL (3.72-5.28); RED CELL DISTRIBUTION WIDTH 15.2 % (11.5-14.0); TOTAL CELLS COUNTED % (AUTO) 100 %; WHITE BLOOD COUNT 7.1 10^3/uL (4.0-10.5)
[2018-12-22 16:09] LABS: ANION GAP 9 (5-19); BLOOD UREA NITROGEN 25 mg/dL (7-20); C-REACTIVE PROTEIN 38.9 mg/L (<10.0); CALCIUM 9.4 mg/dL (8.4-10.2); CARBON DIOXIDE 26 mmol/L (22-30); CHLORIDE 99 mmol/L (98-107); GLUCOSE 93 mg/dL (75-110); POTASSIUM 4.8 mmol/L (3.6-5.0)
[2018-12-22 16:29] LABS: ERYTHROCYTE SEDIMENTATION RATE 55 mm/hr (0-30)
== END ==
LOC: OD 15:02
PROVIDERS: ATTEND Orthopaedic Surgery
DX: M79.605 Pain in left leg (principal)
CPT/HCPCS: 36415; 80048; 85025; 85652; 86140

== ENCOUNTER 2019-01-01 12:10 | Inpatient (IN) | payer MEDICARE, BC ==
[2019-01-01 12:41] LABS: ABSOLUTE LYMPHOCYTES (AUTO) 0.6 10^3/uL (0.5-4.7); ABSOLUTE MONOCYTES (AUTO) 0.5 10^3/uL (0.1-1.4); ABSOLUTE NEUT (AUTO) 8.4 10^3/uL (1.7-8.2); BASOPHILS % (AUTO) 0.2 % (0-2); EOSINOPHILS % (AUTO) 0.1 % (0-6); HEMATOCRIT 35.7 % (36.0-47.0); HEMOGLOBIN 12.1 g/dL (12.0-15.5); LYMPHOCYTES % (AUTO) 6.1 % (13-45); MEAN CORPUSCULAR HEMOGLOBIN 30.8 pg (27.0-33.4); MEAN CORPUSCULAR HGB CONC 33.9 g/dL (32.0-36.0); MEAN CORPUSCULAR VOLUME 91 fl (80-97); MONOCYTES % (AUTO) 5.4 % (3-13); PLATELET COUNT 484 10^3/uL (150-450); RED BLOOD COUNT 3.93 10^6/uL (3.72-5.28); RED CELL DISTRIBUTION WIDTH 14.6 % (11.5-14.0); SEGMENTED NEUTROPHILS % (AUTO) 88.2 % (42-78); TOTAL CELLS COUNTED % (AUTO) 100 %; WHITE BLOOD COUNT 9.6 10^3/uL (4.0-10.5)
[2019-01-01] MEDS ORDERED: METOCLOPRAMIDE HCL INJ/PF 10 MG/2 ML SDV IV ONE (12:53)
[2019-01-01] MEDS ORDERED: FENTANYL CITRATE INJ/PF 100 MCG/2 ML AMPUL IV ONE (12:54)
--- NOTE | 2019-01-01 12:55 | ER Document Report ---
ED General - General Chief Complaint: Upper Abdominal Pain Stated Complaint: EPIGASTRIC PAIN Time Seen by Provider: 01/01/19 12:53 Mode of Arrival: Medic Information source: Patient Notes: This 88-year-old female presents emergency department with complaints of abdominal pain left lower quad with nausea and dry heaving since Friday.. Patient reports she started hurting early Friday morning. She reports she has been passing gas including gas this morning with a small watery muddy lo oking stool. Patient reports last normal stool was Friday morning. Patient reports that this morning she was drinking prune juice took senna and MiraLAX. Reports she takes MiraLAX on a daily basis. Denies fever vomiting diarrhea. C/O Nausea. Reports she has not been eating or drinking that much. She reports she tried to eat a cracker this morning without success. Patient reports she is taking hydrocodone daily for chronic back pain. She also has a history of hypertension hypothyroidism diverticulitis. TRAVEL OUTSIDE OF THE [place] IN LAST 30 DAYS: No - HPI Onset: Other Onset/Duration: Persistent Quality of pain: Achy Severity: Moderate Pain Level: 3 Associated symptoms: Nausea Exacerbated by: Denies Relieved by: Denies Similar symptoms previously: No Recently seen / treated by doctor: No - Related Data Allergies/Adverse Reactions: amoxicillin [From Augmentin] Allergy (Verified 07/18/18 11:42) clavulanic acid [From Augmentin] Allergy (Verified 07/18/18 11:42) Past Medical History - General Information source: Patient - Social History Smoking Status: Never Smoker Chew tobacco use (# tins/day): No Frequency of alcohol use: None Drug Abuse: None Lives with: Family Family History: Reviewed & Not Pertinent Patient has suicidal ideation: No Patient has homicidal ideation: No - Past Medical History Cardiac Medical History: Reports: Hx Coronary Artery Disease, Hx Hypercholesterolemia, Hx Hypertension Pulmonary Medical History: Denies: Hx COPD, Hx Respiratory Failure Neurological Medical History: Denies: Hx Seizures Endocrine Medical History: Denies: Hx Diabetes Mellitus Type 2 Renal/ Medical History: Denies: Hx Peritoneal Dialysis Malignancy Medical History: Denies: Hx Breast Cancer, Hx Colorectal Cancer GI Medical History: Reports: Hx Diverticulitis. Denies: Hx Gastroesophageal Reflux Disease Musculoskeletal Medical History: Reports Hx Arthritis, Denies Hx Fibromyalgia Skin Medical History: Denies Hx Eczema, Denies Hx Psoriasis Psychiatric Medical History: Denies: Hx Bipolar Disorder, Hx Depression Traumatic Medical History: Denies: Hx Traumatic Brain Injury Past Surgical History: Reports: Hx Appendectomy, Hx Cholecystectomy - Bowel resection related to diverticulitis, tonsillectomy, Hx Herniorrhaphy, Hx Hysterectomy, Hx Orthopedic Surgery. Denies: Hx Mastectomy Review of Systems - Review of Systems Notes: Review HPI for review of systems., All other systems negative Physical Exam - Vital signs Vitals: Resp Pulse Ox 14 95 01/01/19 13:03 01/01/19 13:03 - General General appearance: Alert In distress: Mild - Winces when abdomen is palpated. - HEENT Head: Normocephalic Eyes: Normal Conjunctiva: Normal Extraocular movements intact: Yes Neck: Normal, Supple. No: Lymphadenopathy - Respiratory Respiratory status: No respiratory distress Chest status: Nontender Breath sounds: Normal Chest palpation: Normal - Cardiovascular Rhythm: Regular Heart sounds: Normal auscultation Murmur: No - Abdominal Inspection: Normal Distension: No distension Bowel sounds: Hypoactive Tenderness: Tender Organomegaly: No organomegaly - Extremities General upper extremity: Normal ROM General lower extremity: Normal ROM - Neurological Neuro grossly intact: Yes Cognition: Normal Orientation: AAOx4 Yvon Coma Scale Eye Opening: Spontaneous [place] Coma Scale Verbal: Oriented [place] Coma Scale Motor: Obeys Commands Yvon Coma Scale Total: 15 Speech: Normal - Psychological Associated symptoms: Normal affect, Normal mood - Skin Skin Temperature: Warm Skin Moisture: Dry Skin Color: Normal Course - Re-evaluation Re-evalutation: 01/01/19 16:57 This 88-year-old female presents emergency department with complaints of abdominal pain. Patient reports pain started on Friday morning. She reports last normal bowel movement was Friday. She reports she is been having increasing pain since Friday. Reports decreased appetite. Reports she is been taking prune juice MiraLAX and senna this morning. She reports she did have a black bloody watery stool this morning very small. 01/01/19 16:59 no leukocytosis , hyponatremia noted at 133. Patient vomiting up oral contrast IV fluids ordered. Zofran ordered. 01/01/19 18:54 CT shows dilated fluid loops of small bowel concerning at least a partial small bowel obstruction transition point is not identified small amount of free fluid in the abdomen and pelvis Checks x-ray showed there is probable fracture deformity of the proximal right humerus with probable anterior dislocation. I discussed this with patient she denies pain. She reports she has not fallen lately. She reports she does have arthritis and has difficulty lifting both arms but denies pain at this time. 01/01/19 20:22 Dr. Torres was in the emergency department reviewed CT scan. He reports he thinks she is constipated. He agrees to consult as long as hospitalist admits. Still waiting on radiology report for right shoulder. Does look dislocated does look fractured probably not acute. Contacted Dr. Block who agrees to admission on telemetry. Request a fleets enema. Nurse is attempting to do NG tube without success at this time. She is going to try a smaller NGT. Report given to JS Harrington Shoulder xray shows dislocated humeral head fractured, acute versus chronic, pt denies pain. Chest X-Ray 01/01/19 13:15 IMPRESSION: 1. No acute abnormality of the lungs in AP projection. 2. There is a probable fracture deformity of the proximal right humerus with probable anterior dislocation of the shoulder joint. Consider dedicated shoulder radiographs to further evaluate. KUB X-Ray 01/01/19 13:15 IMPRESSION: There are gas-filled, mildly distended loops of small bowel in the upper left abdomen measuring up to 4.0 cm in caliber. There is bowel suture present in the mid pelvis. There is gas present in the colon and stool present in the rectum. No free air in the abdomen. Findings are of uncertain significance. Consider CT to further evaluate if there is concern for bowel obstruction, especially in the setting of prior surgery. Abdomen/Pelvis CT 01/01/19 15:12 IMPRESSION: 1. Dilated fluid-filled loops of small bowel concerning for at least partial small bowel obstruction. Transition point is not identified. 2. Small amount of free fluid in the abdomen and pelvis. 3. Osseous findings as described. Shoulder X-Ray 01/01/19 18:51 IMPRESSION: Significantly abnormal right humeral head which is dislocated and fractured. Acute versus chronic. Severe osteoporosis. 01/01/19 12:21 01/01/19 12:21 MCV 91 fl (80-97) 01/01/19 12:21 MCH 30.8 pg (27.0-33.4) 01/01/19 12:21 MCHC 33.9 g/dL (32.0-36.0) 01/01/19 12:21 RDW 14.6 % (11.5-14.0) H 01/01/19 12:21 Seg Neutrophils % 88.2 % (42-78) H 01/01/19 12:21 Lymphocytes % 6.1 % (13-45) L 01/01/19 12:21 Monocytes % 5.4 % (3-13) 01/01/19 12:21 Eosinophils % 0.1 % (0-6) 01/01/19 12:21 Basophils % 0.2 % (0-2) 01/01/19 12:21 Absolute Neutrophils 8.4 10^3/uL (1.7-8.2) H 01/01/19 12:21 Absolute Lymphocytes 0.6 10^3/uL (0.5-4.7) 01/01/19 12:21 Absolute Monocytes 0.5 10^3/uL (0.1-1.4) 01/01/19 12:21 Absolute Eosinophils 0.0 10^3/uL (0.0-0.6) 01/01/19 12:21 Absolute Basophils 0.0 10^3/uL (0.0-0.2) 01/01/19 12:21 Chloride 99 mmol/L (98-107) 01/01/19 12:21 Carbon Dioxide 26 mmol/L (22-30) 01/01/19 12:21 Anion Gap 8 (5-19) 01/01/19 12:21 Est GFR ( Amer) > 60 (>60) 01/01/19 12:21 Est GFR (Non-Af Amer) > 60 (>60) 01/01/19 12:21 Glucose 124 mg/dL (75-110) H 01/01/19 12:21 Calcium 9.5 mg/dL (8.4-10.2) 01/01/19 12:21 Total Bilirubin 0.5 mg/dL (0.2-1.3) 01/01/19 12:21 AST 26 U/L (14-36) 01/01/19 12:21 Alkaline Phosphatase 176 U/L (38-126) H 01/01/19 12:21 Total Protein 7.6 g/dL (6.3-8.2) 01/01/19 12:21 Albumin 3.7 g/dL (3.5-5.0) 01/01/19 12:21 Lipase 50.2 U/L (23-300) 01/01/19 12:21 Urine Color MIRYAM 01/01/19 16:40 Urine Appearance SLIGHTLY-CLOUDY 01/01/19 16:40 Urine pH 5.0 (5.0-9.0) 01/01/19 16:40 Ur Specific [place] 1.031 01/01/19 16:40 Urine Protein 100 mg/dL (NEGATIVE) H 01/01/19 16:40 Urine Glucose (UA) NEGATIVE mg/dL (NEGATIVE) 01/01/19 16:40 Urine Ketones 20 mg/dL (NEGATIVE) H 01/01/19 16:40 Urine Blood SMALL (NEGATIVE) H 01/01/19 16:40 Urine Nitrite NEGATIVE (NEGATIVE) 01/01/19 16:40 Ur Leukocyte Esterase NEGATIVE (NEGATIVE) 01/01/19 16:40 Urine WBC (Auto) 4 /HPF 01/01/19 16:40 Urine RBC (Auto) 32 /HPF 01/01/19 16:40 - Vital Signs Vital signs: Temp Pulse Resp BP Pulse Ox 99.2 F 71 20 156/70 H 94 01/02/19 16:00 01/02/19 19:00 01/02/19 16:00 01/02/19 16:00 01/02/19 16:[address] Torres no answer - Laboratory Result Diagrams: 01/02/19 06:30 01/02/19 06:30 Laboratory results interpreted by me: 01/01/19 01/01/19 01/01/19 12:21 12:21 16:40 Hct 35.7 L RDW 14.6 H Plt Count 484 H Seg Neutrophils % 88.2 H Lymphocytes % 6.1 L Absolute Neutrophils 8.4 H Sodium 133.2 L Potassium 5.1 H Glucose 124 H Alkaline Phosphatase 176 H Urine Protein 100 H Urine Ketones 20 H Urine Blood SMALL H Urine Urobilinogen 2.0 H - Diagnostic Test Radiology reviewed: Image reviewed, Reports reviewed - EKG Interpretation by Me EKG shows normal: Sinus rhythm Rate: Normal Additional EKG results interpreted by me: 01/01/19 20:[address] elevation no T wave inversion Discharge - Discharge Clinical Impression: ABDOMEN PAIN, Constipation, RIGHT SHOULDER DISLOCATION Condition: Stable Disposition: ADMITTED INPATIENT Admitting Provider: Umair (Hospitalist) Unit Admitted: Telemetry
[2019-01-01 13:07] LABS: ALBUMIN 3.7 g/dL (3.5-5.0); ALKALINE PHOSPHATASE 176 U/L (38-126); ANION GAP 8 (5-19); ASPARTATE AMINO TRANSFERASE 26 U/L (14-36); BILIRUBIN,DIRECT 0.4 mg/dL (0.0-0.4); BILIRUBIN,TOTAL 0.5 mg/dL (0.2-1.3); BLOOD UREA NITROGEN 17 mg/dL (7-20); CALCIUM 9.5 mg/dL (8.4-10.2); CARBON DIOXIDE 26 mmol/L (22-30); CHLORIDE 99 mmol/L (98-107); GLUCOSE 124 mg/dL (75-110); POTASSIUM 5.1 mmol/L (3.6-5.0); TOTAL PROTEIN 7.6 g/dL (6.3-8.2)
--- NOTE | 2019-01-01 14:08 | RADIOLOGY REPORT (SQ) ---
EXAM DESCRIPTION: CHEST 2 VIEWS COMPLETED DATE/TIME: 01/01/2019 1:57 pm REASON FOR STUDY: upper abd pain COMPARISON: None. EXAM PARAMETERS: NUMBER OF VIEWS: two views TECHNIQUE: Digital Frontal and Lateral radiographic views of the chest acquired. RADIATION DOSE: NA LIMITATIONS: none FINDINGS: LUNGS AND PLEURA: No opacities, masses or pneumothorax. No pleural effusion. MEDIASTINUM AND HILAR STRUCTURES: No masses or contour abnormalities. HEART AND VASCULAR STRUCTURES: Heart normal size. No evidence for failure. BONES: There is a probable fracture deformity of the proximal right humerus with probable anterior di slocation of the glenohumeral joint. HARDWARE: None in the chest. OTHER: No other significant finding. IMPRESSION: 1. No acute abnormality of the lungs in AP projection. 2. There is a probable fracture deformity of the proximal right humerus with probable anterior dislo cation of the shoulder joint. Consider dedicated shoulder radiographs to further evaluate. TECHNICAL DOCUMENTATION: JOB ID: [id number] [employer]- All Rights Reserved Reading location - IP/workstation name: [email or web address]
--- NOTE | 2019-01-01 14:10 | RADIOLOGY REPORT (SQ) ---
EXAM DESCRIPTION: KUB/ABDOMEN (SINGLE VIEW) COMPLETED DATE/TIME: 01/01/2019 1:57 pm REASON FOR STUDY: upper abd pain COMPARISON: None. NUMBER OF VIEWS: One view. TECHNIQUE: Supine radiographic image of the abdomen acquired. LIMITATIONS: None. FINDINGS: BOWEL GAS PATTERN: There are gas-filled, mildly distended loops of small bowel in the uppe r left abdomen measuring up to 4.0 cm in caliber. There is bowel suture present in the mid pelvis. There is gas present in the colon and stool present in the rectum. No free air in the abdomen. CALCIFICATIONS: No suspicious calcifications. SOFT TISSUES: No gross mass or suggestion of organomegaly. HARDWARE: None in the abdomen. BONES: No acute fracture. No worrisome bone lesions. OTHER: No other significant finding. IMPRESSION: There are gas-filled, mildly distended loops of small bowel in the upper left abdomen me asuring up to 4.0 cm in caliber. There is bowel suture present in the mid pelvis. There is gas pres ent in the colon and stool present in the rectum. No free air in the abdomen. Findings are of uncer tain significance. Consider CT to further evaluate if there is concern for bowel obstruction, especi ally in the setting of prior surgery. TECHNICAL DOCUMENTATION: JOB ID: [id number] [employer]- All Rights Reserved Reading location - IP/workstation name: [email or web address]
--- NOTE | 2019-01-01 14:31 | EKG REPORT ---
SEVERITY:- ABNORMAL ECG - SINUS RHYTHM ATRIAL PREMATURE COMPLEX NONSPECIFIC T ABNORMALITIES, ANTERIOR LEADS : Confirmed by: Arlene Tolentino MD 01-Jan-2019 14:30:51
[2019-01-01] MEDS ORDERED: ONDANSETRON HCL INJ/PF 4 MG/2 ML SDV IV ONE (15:34)
[2019-01-01] MEDS: NORMAL SALINE 1000 ML 1,000 ML IV PRN (16:53)
[2019-01-01 17:08] LABS: APPEARANCE,URINE SLIGHTLY-CLOUDY; BILIRUBIN,URINE NEGATIVE (NEGATIVE); CALCIUM OXALATE CRYSTALS,URINE TOO NUMEROUS TO CNT /HPF; COLOR,URINE AMBER; GLUCOSE, URINE NEGATIVE (NEGATIVE); KETONES,URINE 20 mg/dL (NEGATIVE); LEUKOCYTE ESTERASE,URINE NEGATIVE (NEGATIVE); NITRITE,URINE NEGATIVE (NEGATIVE); PROTEIN,URINE 100 mg/dL (NEGATIVE); URINE SPECIFIC GRAVITY 1.031
--- NOTE | 2019-01-01 18:44 | RADIOLOGY REPORT (SQ) ---
EXAM DESCRIPTION: CT ABD/PELVIS WITH IV ORAL COMPLETED DATE/TIME: 01/01/2019 6:13 pm REASON FOR STUDY: abd pain, eval for obstruction COMPARISON: None. TECHNIQUE: CT scan of the abdomen and pelvis performed using helical scanning technique with dynamic intravenous contrast injection. No oral contrast. Images reviewed with lung, soft tissue, and bone windows. Reconstructed coronal and sagittal MPR images reviewed. Delayed images for evaluation of the urinary system also acquired. All images stored on PACS. All CT scanners at this facility use dose modulation, iterative reconstruction, and/or weight based d osing when appropriate to reduce radiation dose to as low as reasonably achievable (ALARA). [facility]: Dose Right [facility]: CareDose [facility]: Dose Right [facility]: Teradose 4D [facility]: Vivakor CONTRAST TYPE AND DOSE: contrast/concentration: Isovue 350.00 mg/ml; Total Contrast Delivered: 70.0 ml; Total Saline Delivered: 65.0 ml RENAL FUNCTION: BUN 19 creatinine 0.68 RADIATION DOSE: CT Rad equipment meets quality standard of care and radiation dose reduction techniq ues were employed. CTDIvol: 8.0 - 11.4 mGy. DLP: 932 mGy-cm.. LIMITATIONS: None. FINDINGS: LOWER CHEST: Minimal right pleural effusion with mild atelectatic changes in the right low er lobe. LIVER: Normal size. No masses. No dilated ducts. SPLEEN: Normal size. No focal lesions. PANCREAS: No masses. No significant calcifications. No adjacent inflammation or peripancreatic fluid collections. Pancreatic duct not dilated. GALLBLADDER: Surgically absent. ADRENAL GLANDS: No significant masses or asymmetry. RIGHT KIDNEY AND URETER: No solid masses. No significant calcifications. No hydronephrosis or hyd roureter. LEFT KIDNEY AND URETER: No solid masses. No significant calcifications. No hydronephrosis or hydr oureter. AORTA AND VESSELS: No aneurysm. No dissection. Renal arteries, SMA, celiac without stenosis. RETROPERITONEUM: No retroperitoneal adenopathy, hemorrhage or masses. BOWEL AND PERITONEAL CAVITY: There are dilated, fluid-filled loops of small bowel. There is a dilate d segment of small bowel where there is an anastomosis. This is in the right side of the abdomen. S ee images 38 through 49 series 3. There is a small amount of parasplenic free fluid. APPENDIX: Normal. PELVIS: Urinary bladder is not filled. No pelvic mass. There is minimal free fluid in the pelvis. ABDOMINAL WALL: No masses. No hernias. 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 Grade 2 anterolisthesis of L4 on L5. OTHER: No other significant finding. IMPRESSION: 1. Dilated fluid-filled loops of small bowel concerning for at least partial small zoe l obstruction. Transition point is not identified. 2. Small amount of free fluid in the abdomen and pelvis. 3. Osseous findings as described. TECHNICAL DOCUMENTATION: JOB ID: [id number] Quality ID # [id number]: Final reports with documentation of one or more dose reduction techniques (e.g., Au tomated exposure control, adjustment of the mA and/or kV according to patient size, use of iterative reconstruction technique) 2010 [employer]- All Rights Reserved Reading location - IP/workstation name: [email or web address]
[2019-01-01] MEDS ORDERED: NA PHOS,M-B/NA PHOS,DI-BA (ADULT) 133 ML ENEMA PR ONE (20:20)
[2019-01-01] MEDS ORDERED: IPRATROPIUM/ALBUTEROL 0.5-2.5 MG/3 ML AMPUL NEB PRN (20:22)
--- NOTE | 2019-01-01 20:23 | RADIOLOGY REPORT (SQ) ---
EXAM DESCRIPTION: CLINICAL HISTORY: 88 years Female, ?shoulder dislocation, ? Humerus fx COMPARISON: None. FINDINGS: There is complete anterior dislocation of the proximal right humerus. There is a poorly defined humeral head which appears fractured. Bones are significantly osteoporotic. The findings described may be acute or chronic. IMPRESSION: Significantly abnormal right humeral head which is dislocated and fractured. Acute versus chronic. Severe osteoporosis.
--- NOTE | 2019-01-01 20:23 | PDOC CONSULTATION ---
Consultation Consult Date: 01/01/19 Attending physician:: PAIGE MENDOZA Provider Consulted: AUGUST HENLEY Consult reason:: incomplete small bowel obstruction/constipation History of Present Illness History of Present Illness: SG OSHEA is a 88 year old female presents emergency department with complaints of abdominal pain left lower quad with nausea and dry heaving since Friday.. Patient reports she started hurti ng early Friday morning. She reports she has been passing gas including gas this morning with a small watery muddy looking stool. Patient reports last normal stool was Friday morning. Patient reports that this morning she was drinking prune juice took senna and MiraLAX. Reports she takes MiraLAX on a daily basis. Denies fever vomiting diarrhea. C/O Nausea. Reports she has not been eating or drinking that much. She reports she tried to eat a cracker this morning without success. Patient reports she is taking hydrocodone daily for chronic back pain. She also has a history of hypertension hypothyroidism diverticulitis. ct done in er shows dilated sb loops with large stool load in colon. No transition pt. Past Medical History Cardiac Medical History: Reports: Coronary Artery Disease, Hyperlipidema, Hypertension Pulmonary Medical History: Denies: Chronic Obstructive Pulmonary Disease (COPD), Respiratory Failure Neurological Medical History: Denies: Seizures Endocrine Medical History: Denies: Diabetes Mellitus Type 2 Malignancy Medical History: Denies: Breast Cancer, Colorectal Cancer GI Medical History: Reports: Diverticulitis Denies: Gastroesophageal Reflux Disease Musculoskeltal Medical History: Reports: Arthritis Denies: Fibromyalgia Skin Medical History: Denies: Eczema, Psoriasis Psychiatric Medical History: Denies: Bipolar Disorder, Depression Traumatic Medical History: Denies: Traumatic Brain Injury Hematology: Denies: Bleeding Tendencies Past Surgical History Past Surgical History: Reports: Appendectomy, Cholecystectomy - Bowel resection related to diverticulitis, tonsillectomy, Herniorrhaphy, Hysterectomy, O rthopedic Surgery Denies: Mastectomy Social History Lives with: Family Smoking Status: Never Smoker Frequency of Alcohol Use: None Hx Recreational Drug Use: No Drugs: None Hx Prescription Drug Abuse: No Family History Family History: Reviewed & Not Pertinent Parental Family History Reviewed: No Children Family History Reviewed: NA Sibling(s) Family History Reviewed.: NA Medication/Allergy Home Medications: Atenolol [Tenormin] 25 mg PO DAILY 07/18/18 Levothyroxine Sodium [Synthroid 0.1 mg Tablet] 0.1 mg PO Q6AM 07/18/18 Aspirin [Ecotrin 81 mg EC Tablet] 81 mg PO DAILY tabec 07/22/18 Ciprofloxacin HCl [Cipro 750 mg Tablet] 750 mg PO Q12 #6 tablet 07/22/18 Magnesium Hydroxide [Milk of Magnesia 30 ml Udcup] 30 ml PO Q6HP PRN udc 07/22/18 Oxycodone HCl [Oxy-Ir 5 mg Tablet] 5 mg PO Q6HP PRN #15 tablet 07/22/18 Sennosides/Docusate 8.6-50 mg [Senna Plus Tablet] 2 each PO BID tablet 07/22/18 Allergies/Adverse Reactions: amoxicillin [From Augmentin] Allergy (Verified 07/18/18 11:42) clavulanic acid [From Augmentin] Allergy (Verified 07/18/18 11:42) Review of Systems Constitutional: PRESENT: weakness Eyes: ABSENT: visual disturbances Ears: ABSENT: hearing changes Nose, Mouth, and Throat: ABSENT: as per HPI, headache(s), mouth pain, sore throat, vertigo, other Cardiovascular: ABSENT: as per HPI, chest pain, dyspnea on exertion, edema, orthropnea, palpitations, other Respiratory: ABSENT: as per HPI, cough, dyspnea, hemoptysis, sputum, other Gastrointestinal: PRESENT: abdominal pain - Mild left-sided abdominal pain, bloating, nausea, vomiting Genitourinary: ABSENT: as per HPI, difficulty urinating, dysuria, hematuria, nocturia, other Musculoskeletal: PRESENT: deformity - Right upper extremity weakness to using a walker mild pain' chronic lower back pain., muscle weakness Neurological: PRESENT: focal weakness - Right extremity weakness Endocrine: ABSENT: cold intolerance, heat intolerance, polydipsia, polyuria Hematologic/Lymphatic: ABSENT: easy bleeding, easy bruising Physical Exam Vital Signs: Temp Pulse Resp BP Pulse Ox 98.2 F 18 150/73 H 95 01/01/19 17:33 01/01/19 17:00 01/01/19 13:14 01/01/19 17:00 Intake & Output 12/31/18 01/01/19 01/02/19 06:59 06:59 06:59 Weight 60.9 kg General appearance: PRESENT: mild distress Head exam: PRESENT: normocephalic Eye exam: PRESENT: EOMI Ear exam: PRESENT: normal external ear exam Mouth exam: PRESENT: moist Neck exam: PRESENT: full ROM Respiratory exam: PRESENT: clear to auscultation delfina Cardiovascular exam: PRESENT: RRR Pulses: PRESENT: normal radial pulses, normal femoral pulses Vascular exam: PRESENT: normal capillary refill GI/Abdominal exam: PRESENT: distended, hypoactive bowel sounds, tenderness - Mild left lower quadrant tenderness Rectal exam: PRESENT: deferred Musculoskeletal exam: PRESENT: other - Right upper extremity tender promimal. Pain with abduction Neurological exam: PRESENT: alert, awake, oriented to person, oriented to place Psychiatric exam: PRESENT: appropriate affect Skin exam: PRESENT: dry Results Laboratory Results: 01/01/19 12:21 01/01/19 12:21 01/01/19 01/01/19 01/01/19 12:21 12:21 16:40 WBC 9.6 RBC 3.93 Hgb 12.1 Hct 35.7 L MCV 91 MCH 30.8 MCHC 33.9 RDW 14.6 H Plt Count 484 H Seg Neutrophils % 88.2 H Lymphocytes % 6.1 L Monocytes % 5.4 Eosinophils % 0.1 Basophils % 0.2 Absolute Neutrophils 8.4 H Absolute Lymphocytes 0.6 Absolute Monocytes 0.5 Absolute Eosinophils 0.0 Absolute Basophils 0.0 Sodium 133.2 L Potassium 5.1 H Chloride 99 Carbon Dioxide 26 Anion Gap 8 BUN 17 Creatinine 0.68 Est GFR ( Amer) > 60 Est GFR (Non-Af Amer) > 60 Glucose 124 H Calcium 9.5 Total Bilirubin 0.5 AST 26 Alkaline Phosphatase 176 H Total Protein 7.6 Albumin 3.7 Lipase 50.2 Urine Color MIRYAM Urine Appearance SLIGHTLY-CLOUDY Urine pH 5.0 Ur Specific [place] 1.031 Urine Protein 100 H Urine Glucose (UA) NEGATIVE Urine Ketones 20 H Urine Blood SMALL H Urine Nitrite NEGATIVE Ur Leukocyte Esterase NEGATIVE Urine WBC (Auto) 4 Urine RBC (Auto) 32 Impressions: Chest X-Ray 01/01/19 13:15 IMPRESSION: 1. No acute abnormality of the lungs in AP projection. 2. There is a probable fracture deformity of the proximal right humerus with probable anterior dislocation of the shoulder joint. Consider dedicated shoulder radiographs to further evaluate. KUB X-Ray 01/01/19 13:15 IMPRESSION: There are gas-filled, mildly distended loops of small bowel in the upper left abdomen measuring up to 4.0 cm in caliber. There is bowel suture present in the mid pelvis. There is gas present in the colon and stool present in the rectum. No free air in the abdomen. Findings are of uncertain significance. Consider CT to further evaluate if there is concern for bowel obstruction, especially in the setting of prior surgery. Abdomen/Pelvis CT 01/01/19 15:12 IMPRESSION: 1. Dilated fluid-filled loops of small bowel concerning for at least partial small bowel obstruction. Transition point is not identified. 2. Small amount of free fluid in the abdomen and pelvis. 3. Osseous findings as described. Assessment & Plan - Plan Summary Plan Summary: Impression 88-year-old female with incomplete small bowel obstruction secondary to chronic constipation 2. Proximal right humeral fracture Recommendation NG suction for her chronic nausea and vomiting Bowel rest we will start enemas in the morning Will need orthopedic evaluation for her proximal humeral fracture Surgery will follow
[2019-01-01] MEDS ORDERED: METOPROLOL TARTRATE PF/INJ 5 MG/5 ML SDV IV PRN (20:26)
[2019-01-01] MEDS ORDERED: NORMAL SALINE 1000 ML 1,000 ML IV SCH (20:30)
[2019-01-01 20:49] LABS: PHOSPHORUS 3.7 mg/dL (2.5-4.5)
[2019-01-01] MEDS: MINERAL OIL ENEMA 133 ML PR SCH (21:25)
[2019-01-01] MEDS: HEPARIN SOD (PORCINE) 5,000 UNIT/ML 1 ML VIAL SUBCUT SCH (22:54)
[2019-01-01] MEDS ORDERED: LACTULOSE SYRUP 20 GM/30 ML UDCUP PR ONE (22:58)
[2019-01-02] MEDS ORDERED: LACTULOSE SYRUP 20 GM/30 ML UDCUP ONE (00:45)
[2019-01-02] MEDS: ONDANSETRON HCL INJ/PF 4 MG/2 ML SDV IV PRN ×2 (01:47→17:05)
[2019-01-02] MEDS ORDERED: HYDRALAZINE HCL INJ/PF 20 MG/1 ML SDV IV PRN (05:38)
[2019-01-02] MEDS ORDERED: ATENOLOL 50 MG TABLET PO ONE (05:45)
--- NOTE | 2019-01-02 05:49 | PDOC H&P ---
History of Present Illness Admission Date/PCP: 01/01/19 20:35 Patient complains of: Nausea vomiting and abdominal pain History of Present Illness: SG OSHEA is a 88 year old female with a partial past medical history of hypertension, arthritis, coronary artery disease, hypertension and left hip fracture. She presents with 4 days of abdominal pain nausea vomiting of gastric content. Denying chest pain shortness of breath or palpitations admitting in complete bowel movements. In the emergency room she is found to have fecal impaction, right shoulder fracture and dislocation and referred to the hospitalist for admission. Patient denies trauma or sudden onset to shoulder pain, is only tender when ambulating with her walker. She denies recent change of medication regiment or diet and is otherwise felt well Past Medical History Cardiac Medical History: Reports: Coronary Artery Disease, Hyperlipidema, H ypertension Pulmonary Medical History: Denies: Chronic Obstructive Pulmonary Disease (COPD), Respiratory Failure Neurological Medical History: Denies: Seizures Endocrine Medical History: Denies: Diabetes Mellitus Type 2 Malignancy Medical History: Denies: Breast Cancer, Colorectal Cancer GI Medical History: Reports: Diverticulitis Denies: Gastroesophageal Reflux Disease Musculoskeltal Medical History: Reports: Arthritis Denies: Fibromyalgia Skin Medical History: Denies: Eczema, Psoriasis Psychiatric Medical History: Denies: Bipolar Disorder, Depression Traumatic Medical History: Denies: Traumatic Brain Injury Hematology: Denies: Bleeding Tendencies Past Surgical History Past Surgical History: Reports: Appendectomy, Cholecystectomy - Bowel resection related to diverticulitis, tonsillectomy, Herniorrhaphy, Hysterectomy, Orthopedic Surgery Denies: Mastectomy Social History Information Source: Patient, [facility] Records Lives with: Family Smoking Status: Never Smoker Frequency of Alcohol Use: None Hx Recreational Drug Use: No Drugs: None Hx Prescription Drug Abuse: No - Advance Directive Resuscitation Status: Full Code Family History Family History: Hypertension Parental Family History Reviewed: Yes Children Family History Reviewed: Yes Sibling(s) Family History Reviewed.: Yes Medication/Allergy Home Medications: Atenolol [Tenormin] 25 mg PO DAILY 07/18/18 Levothyroxine Sodium [Synthroid 0.1 mg Tablet] 0.1 mg PO Q6AM 07/18/18 Ciprofloxacin HCl [Cipro] 500 mg PO Q12 MDD filled 12/29 for 10 day supply 01/01/19 Hydrocodone Bit/Acetaminophen [Hydrocodon-Acetaminophn 10-325] 1 each PO Q6HP PRN 01/01/19 Allergies/Adverse Reactions: amoxicillin [From Augmentin] Allergy (Verified 07/18/18 11:42) clavulanic acid [From Augmentin] Allergy (Verified 07/18/18 11:42) Review of Systems Constitutional: ABSENT: chills, fever(s), headache(s), weight gain, weight loss Eyes: ABSENT: visual disturbances Ears: ABSENT: hearing changes Cardiovascular: ABSENT: chest pain, dyspnea on exertion, edema, orthropnea, palpitations Respiratory: ABSENT: cough, hemoptysis Gastrointestinal: PRESENT: constipation, nausea, vomiting. ABSENT: abdominal pain, diarrhea, hematemesis, hematochezia Genitourinary: ABSENT: dysuria, hematuria Musculoskeletal: ABSENT: joint swelling Integumentary: ABSENT: rash, wounds Neurological: ABSENT: abnormal gait, abnormal speech, confusion, dizziness, focal weakness, syncope Psychiatric: ABSENT: anxiety, depression, homidical ideation, suicidal ideation Endocrine: ABSENT: cold intolerance, heat intolerance, polydipsia, polyuria Hematologic/Lymphatic: ABSENT: easy bleeding, easy bruising Physical Exam Vital Signs: Temp Pulse Resp BP Pulse Ox 99.2 F 84 17 170/69 H 98 01/02/19 03:29 01/02/19 03:29 01/02/19 03:29 01/02/19 03:29 01/02/19 03:29 Intake & Output 12/31/18 01/01/19 01/02/19 11:59 11:59 11:59 Intake Total 675 Balance 675 Weight 58.7 kg General appearance: PRESENT: cooperative, mild distress, well-developed, well- nourished Head exam: PRESENT: atraumatic, normocephalic Eye exam: PRESENT: conjunctiva pink, EOMI, PERRLA. ABSENT: scleral icterus Ear exam: PRESENT: normal external ear exam Mouth exam: PRESENT: moist, tongue midline Neck exam: ABSENT: carotid bruit, JVD, lymphadenopathy, thyromegaly Respiratory exam: PRESENT: clear to auscultation delfina. ABSENT: rales, rhonchi, wheezes Cardiovascular exam: PRESENT: RRR. ABSENT: diastolic murmur, rubs, systolic murmur Pulses: PRESENT: normal dorsalis pedis pul Vascular exam: PRESENT: normal capillary refill GI/Abdominal exam: PRESENT: hyperactive bowel sounds, normal bowel sounds, soft, tenderness - Left lower quadrant no guarding. ABSENT: distended, guarding, mass, organolmegaly, rebound Rectal exam: PRESENT: deferred Extremities exam: PRESENT: full ROM. ABSENT: calf tenderness, clubbing, pedal edema Neurological exam: PRESENT: alert, awake, oriented to person, oriented to place, oriented to time, oriented to situation, CN II-XII grossly intact. ABSENT: motor sensory deficit Psychiatric exam: PRESENT: appropriate affect, normal mood. ABSENT: homicidal ideation, suicidal ideation Skin exam: PRESENT: dry, intact, warm. ABSENT: cyanosis, rash Results Laboratory Results: 01/01/19 12:21 01/01/19 12:21 01/01/19 01/01/19 01/01/19 12:21 12:21 12:21 WBC 9.6 RBC 3.93 Hgb 12.1 Hct 35.7 L MCV 91 MCH 30.8 MCHC 33.9 RDW 14.6 H Plt Count 484 H Seg Neutrophils % 88.2 H Lymphocytes % 6.1 L Monocytes % 5.4 Eosinophils % 0.1 Basophils % 0.2 Absolute Neutrophils 8.4 H Absolute Lymphocytes 0.6 Absolute Monocytes 0.5 Absolute Eosinophils 0.0 Absolute Basophils 0.0 Sodium 133.2 L Potassium 5.1 H Chloride 99 Carbon Dioxide 26 Anion Gap 8 BUN 17 Creatinine 0.68 Est GFR ( Amer) > 60 Est GFR (Non-Af Amer) > 60 Glucose 124 H Calcium 9.5 Phosphorus 3.7 Magnesium 2.0 Total Bilirubin 0.5 AST 26 Alkaline Phosphatase 176 H Total Protein 7.6 Albumin 3.7 Lipase 50.2 Urine Color Urine Appearance Urine pH Ur Specific Jesse Urine Protein Urine Glucose (UA) Urine Ketones Urine Blood Urine Nitrite Ur Leukocyte Esterase Urine WBC (Auto) Urine RBC (Auto) 01/01/19 16:40 WBC RBC Hgb Hct MCV MCH MCHC RDW Plt Count Seg Neutrophils % Lymphocytes % Monocytes % Eosinophils % Basophils % Absolute Neutrophils Absolute Lymphocytes Absolute Monocytes Absolute Eosinophils Absolute Basophils Sodium Potassium Chloride Carbon Dioxide Anion Gap BUN Creatinine Est GFR ( Amer) Est GFR (Non-Af Amer) Glucose Calcium Phosphorus Magnesium Total Bilirubin AST Alkaline Phosphatase Total Protein Albumin Lipase Urine Color MIRYAM Urine Appearance SLIGHTLY-CLOUDY Urine pH 5.0 Ur Specific Jesse 1.031 Urine Protein 100 H Urine Glucose (UA) NEGATIVE Urine Ketones 20 H Urine Blood SMALL H Urine Nitrite NEGATIVE Ur Leukocyte Esterase NEGATIVE Urine WBC (Auto) 4 Urine RBC (Auto) 32 Impressions: Chest X-Ray 01/01/19 13:15 IMPRESSION: 1. No acute abnormality of the lungs in AP projection. 2. There is a probable fracture deformity of the proximal right humerus with probable anterior dislocation of the shoulder joint. Consider dedicated shoulder radiographs to further evaluate. KUB X-Ray 01/01/19 13:15 IMPRESSION: There are gas-filled, mildly distended loops of small bowel in the upper left abdomen measuring up to 4.0 cm in caliber. There is bowel suture present in the mid pelvis. There is gas present in the colon and stool present in the rectum. No free air in the abdomen. Findings are of uncertain significance. Consider CT to further evaluate if there is concern for bowel obstruction, especially in the setting of prior surgery. Abdomen/Pelvis CT 01/01/19 15:12 IMPRESSION: 1. Dilated fluid-filled loops of small bowel concerning for at least partial small bowel obstruction. Transition point is not identified. 2. Small amount of free fluid in the abdomen and pelvis. 3. Osseous findings as described. Shoulder X-Ray 01/01/19 18:51 IMPRESSION: Significantly abnormal right humeral head which is dislocated and fractured. Acute versus chronic. Severe osteoporosis. Assessment and Plan - Diagnosis (1) Partial bowel obstruction Is this a current diagnosis for this admission?: Yes Plan: Secondary to fecal impaction, opiate use without bowel regiment, telemetry admission, trial Fleet and lactulose enema, symptomatic management NG tube PRN. Follow-up surgical consult (2) Fecal impaction Is this a current diagnosis for this admission?: Yes Plan: Trial enemas, consider surgical consult for endoscopic disimpaction PRN, discharge with bowel regiment if narcotics required (3) Right humeral fracture Is this a current diagnosis for this admission?: Yes Plan: Patient apparently comfortable at rest follow-up consult with patient's orthopedic surgeon Dr. Vance - Time Time Spent with patient: 35 or more minutes - Inpatient Certification Medical Necessity: Need Close Monitoring Due to Risk of Patient Decompensation
[2019-01-02 06:54] LABS: ABSOLUTE LYMPHOCYTES (AUTO) 0.8 10^3/uL (0.5-4.7); ABSOLUTE MONOCYTES (AUTO) 0.6 10^3/uL (0.1-1.4); ABSOLUTE NEUT (AUTO) 8.9 10^3/uL (1.7-8.2); BASOPHILS % (AUTO) 0.2 % (0-2); HEMATOCRIT 36.7 % (36.0-47.0); HEMOGLOBIN 12.2 g/dL (12.0-15.5); LYMPHOCYTES % (AUTO) 7.7 % (13-45); MEAN CORPUSCULAR HEMOGLOBIN 30.3 pg (27.0-33.4); MEAN CORPUSCULAR HGB CONC 33.1 g/dL (32.0-36.0); MEAN CORPUSCULAR VOLUME 92 fl (80-97); MONOCYTES % (AUTO) 5.7 % (3-13); PLATELET COUNT 494 10^3/uL (150-450); RED CELL DISTRIBUTION WIDTH 14.8 % (11.5-14.0); SEGMENTED NEUTROPHILS % (AUTO) 86.4 % (42-78); TOTAL CELLS COUNTED % (AUTO) 100 %; WHITE BLOOD COUNT 10.3 10^3/uL (4.0-10.5)
[2019-01-02] MEDS: HEPARIN SOD (PORCINE) 5,000 UNIT/ML 1 ML VIAL SUBCUT SCH ×3 (06:57→22:35)
[2019-01-02 07:16] LABS: ANION GAP 11 (5-19); BLOOD UREA NITROGEN 18 mg/dL (7-20); CARBON DIOXIDE 21 mmol/L (22-30); CHLORIDE 102 mmol/L (98-107); GLUCOSE 109 mg/dL (75-110); POTASSIUM 4.6 mmol/L (3.6-5.0)
[2019-01-02] MEDS ORDERED: MINERAL OIL ENEMA 133 ML PR ONE (09:00)
[2019-01-02] MEDS ORDERED: NA PHOS,M-B/NA PHOS,DI-BA (ADULT) 133 ML ENEMA PR ONE (09:00)
[2019-01-02] MEDS: MINERAL OIL ENEMA 133 ML PR SCH ×3 (10:24→22:35)
--- NOTE | 2019-01-02 11:43 | PDOC PROGRESS REPORT ---
Subjective Progress Note for:: 01/02/19 Subjective:: Patient feeling much better, no complaints. Did have several large bowel movements last night. Will be getting another enema this morning. Reason For Visit: FECAL IMPACTON, PSBO ABD PAIN Physical Exam Vital Signs: Temp Pulse Resp BP Pulse Ox 98.8 F 76 16 158/70 H 96 01/02/19 07:32 01/02/19 07:32 01/02/19 07:32 01/02/19 07:32 01/02/19 07:32 Intake & Output 01/01/19 01/02/19 01/03/19 06:59 06:59 06:59 Intake Total 675 Balance 675 Weight 58.8 kg General appearance: PRESENT: no acute distress GI/Abdominal exam: PRESENT: other - Abdomen soft, nontender no peritoneal signs no rigidity essentially no distention Results Laboratory Results: 01/02/19 06:30 01/02/19 06:30 01/01/19 01/01/19 01/01/19 12:21 12:21 12:21 WBC 9.6 RBC 3.93 Hgb 12.1 Hct 35.7 L MCV 91 MCH 30.8 MCHC 33.9 RDW 14.6 H Plt Count 484 H Seg Neutrophils % 88.2 H Lymphocytes % 6.1 L Monocytes % 5.4 Eosinophils % 0.1 Basophils % 0.2 Absolute Neutrophils 8.4 H Absolute Lymphocytes 0.6 Absolute Monocytes 0.5 Absolute Eosinophils 0.0 Absolute Basophils 0.0 Sodium 133.2 L Potassium 5.1 H Chloride 99 Carbon Dioxide 26 Anion Gap 8 BUN 17 Creatinine 0.68 Est GFR ( Amer) > 60 Est GFR (Non-Af Amer) > 60 Glucose 124 H Calcium 9.5 Phosphorus 3.7 Magnesium 2.0 Total Bilirubin 0.5 AST 26 Alkaline Phosphatase 176 H Total Protein 7.6 Albumin 3.7 Lipase 50.2 Urine Color Urine Appearance Urine pH Ur Specific [place] Urine Protein Urine Glucose (UA) Urine Ketones Urine Blood Urine Nitrite Ur Leukocyte Esterase Urine WBC (Auto) Urine RBC (Auto) 01/01/19 01/02/19 01/02/19 16:40 06:30 06:30 WBC 10.3 RBC 4.00 Hgb 12.2 Hct 36.7 MCV 92 MCH 30.3 MCHC 33.1 RDW 14.8 H Plt Count 494 H Seg Neutrophils % 86.4 H Lymphocytes % 7.7 L Monocytes % 5.7 Eosinophils % 0.0 Basophils % 0.2 Absolute Neutrophils 8.9 H Absolute Lymphocytes 0.8 Absolute Monocytes 0.6 Absolute Eosinophils 0.0 Absolute Basophils 0.0 Sodium 133.6 L Potassium 4.6 Chloride 102 Carbon Dioxide 21 L Anion Gap 11 BUN 18 Creatinine 0.65 Est GFR ( Amer) > 60 Est GFR (Non-Af Amer) > 60 Glucose 109 Calcium 9.0 Phosphorus Magnesium Total Bilirubin AST Alkaline Phosphatase Total Protein Albumin Lipase Urine Color MIRYAM Urine Appearance SLIGHTLY-CLOUDY Urine pH 5.0 Ur Specific [place] 1.031 Urine Protein 100 H Urine Glucose (UA) NEGATIVE Urine Ketones 20 H Urine Blood SMALL H Urine Nitrite NEGATIVE Ur Leukocyte Esterase NEGATIVE Urine WBC (Auto) 4 Urine RBC (Auto) 32 Impressions: Chest X-Ray 01/01/19 13:15 IMPRESSION: 1. No acute abnormality of the lungs in AP projection. 2. There is a probable fracture deformity of the proximal right humerus with probable anterior dislocation of the shoulder joint. Consider dedicated [facility] ulder radiographs to further evaluate. KUB X-Ray 01/01/19 13:15 IMPRESSION: There are gas-filled, mildly distended loops of small bowel in the upper left abdomen measuring up to 4.0 cm in caliber. There is bowel suture present in the mid pelvis. There is gas present in the colon and stool present in the rectum. No free air in the abdomen. Findings are of uncertain significance. Consider CT to further evaluate if there is concern for bowel obstruction, especially in the setting of prior surgery. Abdomen/Pelvis CT 01/01/19 15:12 IMPRESSION: 1. Dilated fluid-filled loops of small bowel concerning for at least partial small bowel obstruction. Transition point is not identified. 2. Small amount of free fluid in the abdomen and pelvis. 3. Osseous findings as described. Shoulder X-Ray 01/01/19 18:51 IMPRESSION: Significantly abnormal right humeral head which is dislocated and fractured. Acute versus chronic. Severe osteoporosis. Assessment & Plan - Diagnosis (1) Constipation Is this a current diagnosis for this admission?: Yes Plan: Impression: Patient having bowel function with enemas; clinically improved; no evidence of acute abdomen. Recommendations 1. Continue with 1 more enema this morning 2. Surgery will sign off; reconsult if needed.
[2019-01-02] MEDS: NORMAL SALINE 1000 ML 1,000 ML IV PRN (13:43)
[2019-01-02] MEDS ORDERED: NA PHOS,M-B/NA PHOS,DI-BA (ADULT) 133 ML ENEMA PR SCH (14:00)
--- NOTE | 2019-01-02 18:06 | PDOC PROGRESS REPORT ---
Subjective Progress Note for:: 01/02/19 Subjective:: Patient is seen resting in bed. She is awake, alert, oriented x3. She denies chest pain, shortness of breath or dyspnea. She denies any nausea presently. She states her bowels did move several times overnight. Her abdominal pain is much improved. She denies any dysuria. She denies any fevers or chills. She denies any significant arthralgias or myalgias. She states her right shoulder only hurts when she uses her walker. Denies any falls recently. She does not know when she injured her shoulder. She has been following up with Dr. Vance for her left hip since she had surgery in July. She has been scheduled to see him on Friday. Reason For Visit: FECAL IMPACTON, PSBO ABD PAIN Physical Exam Vital Signs: Temp Pulse Resp BP Pulse Ox 99.2 F 69 20 156/70 H 94 01/02/19 16:00 01/02/19 16:00 01/02/19 16:00 01/02/19 16:00 01/02/19 16:00 Intake & Output 01/01/19 01/02/19 01/03/19 06:59 06:59 06:59 Intake Total 675 90 Balance 675 90 Weight 58.8 kg General appearance: PRESENT: no acute distress, well-developed, well-nourished Head exam: PRESENT: atraumatic, normocephalic Eye exam: PRESENT: conjunctiva pink, EOMI, PERRLA. ABSENT: scleral icterus Ear exam: PRESENT: normal external ear exam Mouth exam: PRESENT: moist, tongue midline Neck exam: ABSENT: carotid bruit, JVD, lymphadenopathy, thyromegaly Respiratory exam: PRESENT: clear to auscultation delfina. ABSENT: rales, rhonchi, wheezes Cardiovascular exam: PRESENT: RRR. ABSENT: diastolic murmur, rubs, systolic murmur Pulses: PRESENT: normal dorsalis pedis pul Vascular exam: PRESENT: normal capillary refill GI/Abdominal exam: PRESENT: distended, hypoactive bowel sounds, soft Rectal exam: PRESENT: deferred Extremities exam: PRESENT: tenderness - Right shoulder with deformity noted. ABSENT: calf tenderness, clubbing, pedal edema Musculoskeletal exam: PRESENT: deformity, dislocation - right anterior shoulder. She denies any fall or injury recently. She lives with her daughter inlaw and uses a rolling walke, tenderness Neurological exam: PRESENT: alert, awake, oriented to person, oriented to place, oriented to time, oriented to situation, CN II-XII grossly intact. ABSENT: motor sensory deficit Psychiatric exam: PRESENT: appropriate affect, normal mood. ABSENT: homicidal ideation, suicidal ideation Skin exam: PRESENT: dry, intact, warm. ABSENT: cyanosis, rash Results Laboratory Results: 01/02/19 06:30 01/02/19 06:30 01/01/19 01/02/19 01/02/19 12:21 06:30 06:30 WBC 10.3 RBC 4.00 Hgb 12.2 Hct 36.7 MCV 92 MCH 30.3 MCHC 33.1 RDW 14.8 H Plt Count 494 H Seg Neutrophils % 86.4 H Lymphocytes % 7.7 L Monocytes % 5.7 Eosinophils % 0.0 Basophils % 0.2 Absolute Neutrophils 8.9 H Absolute Lymphocytes 0.8 Absolute Monocytes 0.6 Absolute Eosinophils 0.0 Absolute Basophils 0.0 Sodium 133.6 L Potassium 4.6 Chloride 102 Carbon Dioxide 21 L Anion Gap 11 BUN 18 Creatinine 0.65 Est GFR ( Amer) > 60 Est GFR (Non-Af Amer) > 60 Glucose 109 Calcium 9.0 Phosphorus 3.7 Magnesium 2.0 Impressions: Chest X-Ray 01/01/19 13:15 IMPRESSION: 1. No acute abnormality of the lungs in AP projection. 2. There is a probable fracture deformity of the proximal right humerus with probable anterior dislocation of the shoulder joint. Consider dedicated shoulder radiographs to further evaluate. KUB X-Ray 01/01/19 13:15 IMPRESSION: There are gas-filled, mildly distended loops of small bowel in the upper left abdomen measuring up to 4.0 cm in caliber. There is bowel suture present in the mid pelvis. There is gas present in the colon and stool present in the rectum. No free air in the abdomen. Findings are of uncertain significance. Consider CT to further evaluate if there is concern for bowel obstruction, especially in the setting of prior surgery. Abdomen/Pelvis CT 01/01/19 15:12 IMPRESSION: 1. Dilated fluid-filled loops of small bowel concerning for at least partial small bowel obstruction. Transition point is not identified. 2. Small amount of free fluid in the abdomen and pelvis. 3. Osseous findings as described. Shoulder X-Ray 01/01/19 18:51 IMPRESSION: Significantly abnormal right humeral head which is dislocated and fractured. Acute versus chronic. Severe osteoporosis. Assessment and Plan - Diagnosis (1) Partial bowel obstruction Is this a current diagnosis for this admission?: Yes Plan: Secondary to fecal impaction, opiate use without bowel regiment, telemetry admission, trial Fleet and lactulose enema, symptomatic management NG tube was attempted without success. Surgialist were consulted. She has had several bowel movements since a lactulose enema. Reports feeling much better. (2) Constipation Is this a current diagnosis for this admission?: Yes Plan: Continue laxatives as needed (3) Fecal impaction Is this a current diagnosis for this admission?: Yes Plan: Trial enemas, stool softeners and MiraLAX daily, discharge with bowel regiment if narcotics required (4) Right humeral fracture Is this a current diagnosis for this admission?: Yes Plan: Patient apparently comfortable at rest follow-up consult with patient's orthopedic surgeon Dr. Vance on Friday (5) Hypercholesterolemia Is this a current diagnosis for this admission?: Yes Plan: Continue statin (6) Hypothyroidism Is this a current diagnosis for this admission?: Yes Plan: Continue Synthroid - Time Time Spent with patient: 25-34 minutes Total Critical Time (Minutes): 25 Medications reviewed and adjusted accordingly: Yes Anticipated discharge: Home
[2019-01-02] MEDS ORDERED: CIPROFLOXACIN HCL 500 MG TABLET ONE (22:38)
[2019-01-02] MEDS: CIPROFLOXACIN HCL 500 MG TABLET PO SCH (22:40)
[2019-01-03] MEDS: ONDANSETRON HCL INJ/PF 4 MG/2 ML SDV IV PRN ×2 (01:15→17:40)
[2019-01-03] MEDS: LEVOTHYROXINE SODIUM 0.1 MG TABLET PO SCH (05:17)
[2019-01-03] MEDS: NORMAL SALINE 1000 ML 1,000 ML IV PRN (05:17)
[2019-01-03] MEDS: HEPARIN SOD (PORCINE) 5,000 UNIT/ML 1 ML VIAL SUBCUT SCH ×3 (05:21→21:48)
[2019-01-03] MEDS: MINERAL OIL ENEMA 133 ML PR SCH (05:21)
[2019-01-03] MEDS: ATENOLOL 50 MG TABLET PO SCH (09:54)
[2019-01-03] MEDS ORDERED: (PENDING PHARMACY ID) (Calcium Carbonate [Calcium] 600 MG) PO SCH (10:00)
[2019-01-03] MEDS: CALCIUM CARBONATE 500 MG TABLET PO SCH ×2 (10:02→17:30)
[2019-01-03] MEDS: CHOLECALCIFEROL (D3) 1,000 UNIT (25 MCG) TABLET PO SCH (10:03)
[2019-01-03] MEDS: MULTIVITAMIN TABLET PO SCH (10:03)
[2019-01-03] MEDS: CIPROFLOXACIN HCL 500 MG TABLET PO SCH (15:24)
[2019-01-03] MEDS: LACTULOSE SYRUP 20 GM/30 ML UDCUP PO PRN (15:32)
--- NOTE | 2019-01-03 17:00 | PDOC PROGRESS REPORT ---
Subjective Progress Note for:: 01/03/19 Subjective:: Patient is seen resting in bed. She is awake, alert, oriented x3. She denies chest pain, shortness of breath or dyspnea. She denies any nausea presently. She is feeling hungry Her abdominal pain is much improved. She denies any dysuria. She denies any fevers or chills. She denies any significant arthralgias or myalgias. She states her right shoulder only hurts when she uses her walker. Denies any falls recently. She does not know when she injured her shoulder. She has been following up with Dr. Vance for her left hip since she had surgery in July. Reason For Visit: FECAL IMPACTON, PSBO ABD PAIN Physical Exam Vital Signs: Temp Pulse Resp BP Pulse Ox 97.4 F 65 14 155/63 H 98 01/03/19 15:24 01/03/19 15:24 01/03/19 15:24 01/03/19 15:24 01/03/19 15:24 Intake & Output 01/02/19 01/03/19 01/04/19 06:59 06:59 06:59 Intake Total 675 1300 Output Total 1 Balance 675 1299 Weight 58.8 kg 59.4 kg General appearance: PRESENT: no acute distress, well-developed, well-nourished Head exam: PRESENT: atraumatic, normocephalic Eye exam: PRESENT: conjunctiva pink, EOMI, PERRLA. ABSENT: scleral icterus Ear exam: PRESENT: normal external ear exam Mouth exam: PRESENT: moist, tongue midline Neck exam: ABSENT: carotid bruit, JVD, lymphadenopathy, thyromegaly Respiratory exam: PRESENT: clear to auscultation delfina. ABSENT: rales, rhonchi, wheezes Cardiovascular exam: PRESENT: RRR. ABSENT: diastolic murmur, rubs, systolic murmur Pulses: PRESENT: normal dorsalis pedis pul Vascular exam: PRESENT: normal capillary refill GI/Abdominal exam: PRESENT: normal bowel sounds, soft. ABSENT: distended, guarding, mass, organolmegaly, rebound, tenderness Rectal exam: PRESENT: deferred Extremities exam: PRESENT: joint swelling - right anterior shoulder with mild erythema, tenderness. ABSENT: calf tenderness, clubbing, pedal edema Musculoskeletal exam: PRESENT: ambulatory, deformity - right shoulder, tenderness - right shoulder Neurological exam: PRESENT: alert, awake, oriented to person, oriented to place, oriented to time, oriented to situation, CN II-XII grossly intact. ABSENT: motor sensory deficit Psychiatric exam: PRESENT: appropriate affect, normal mood. ABSENT: homicidal ideation, suicidal ideation Skin exam: PRESENT: dry, intact, warm. ABSENT: cyanosis, rash Results Laboratory Results: 01/02/19 06:30 01/02/19 06:30 Impressions: Chest X-Ray 01/01/19 13:15 IMPRESSION: 1. No acute abnormality of the lungs in AP projection. 2. There is a probable fracture deformity of the proximal right humerus with probable anterior dislocation of the shoulder joint. Consider dedicated shoulder radiographs to further evaluate. KUB X-Ray 01/01/19 13:15 IMPRESSION: There are gas-filled, mildly distended loops of small bowel in the upper left abdomen measuring up to 4.0 cm in caliber. There is bowel suture present in the mid pelvis. There is gas present in the colon and stool present in the rectum. No free air in the abdomen. Findings are of uncertain significance. Consider CT to further evaluate if there is concern for bowel obstruction, especially in the setting of prior surgery. Abdomen/Pelvis CT 01/01/19 15:12 IMPRESSION: 1. Dilated fluid-filled loops of small bowel concerning for at least partial small bowel obstruction. Transition point is not identified. 2. Small amount of free fluid in the abdomen and pelvis. 3. Osseous findings as described. Shoulder X-Ray 01/01/19 18:51 IMPRESSION: Significantly abnormal right humeral head which is dislocated and fractured. Acute versus chronic. Severe osteoporosis. Assessment and Plan - Diagnosis (1) Partial bowel obstruction Is this a current diagnosis for this admission?: Yes Plan: Improving after multiple enemas. Lactulose enema finally had results. Will start on daily miralax, colace, and lactulose po prn Secondary to fecal impaction, opi ate use for hip and decreased activity Nursing report she did vomit after cipro last night Reports feeling much better today. (2) Constipation Is this a current diagnosis for this admission?: Yes Plan: Continue laxatives as needed (3) Fecal impaction Is this a current diagnosis for this admission?: Yes Plan: Trial enemas, stool softeners and MiraLAX daily, discharge with bowel regiment if narcotics required (4) Right humeral fracture Is this a current diagnosis for this admission?: Yes Plan: Patient apparently comfortable at rest follow-up consult with patient's orthopedic surgeon Dr. Vance on Friday (5) Hypercholesterolemia Is this a current diagnosis for this admission?: Yes Plan: Continue statin (6) Hypothyroidism Is this a current diagnosis for this admission?: Yes Plan: Continue Synthroid - Time Time Spent with patient: 25-34 minutes Total Critical Time (Minutes): 20 Medications reviewed and adjusted accordingly: Yes Anticipated discharge: Home - Inpatient Certification Based on my medical assessment, after consideration of the patient's comorbidities, presenting symptoms, or acuity I expect that the services needed warrant INPATIENT care.: Yes I certify that my determination is in accordance with my understanding of Medicare's requirements for reasonable and necessary INPATIENT services [42 CFR 412.3e].: Yes
[2019-01-03] MEDS ORDERED: PROCHLORPERAZINE EDISYLATE INJ 10 MG/2 ML VIAL IM ONE (18:24)
[2019-01-03] MEDS ORDERED: ONDANSETRON HCL INJ/PF 4 MG/2 ML SDV IV PRN (18:26)
[2019-01-03] MEDS ORDERED: PROCHLORPERAZINE EDISYLATE INJ 10 MG/2 ML VIAL ONE (18:43)
[2019-01-03] MEDS ORDERED: PROMETHAZINE HCL 25 MG SUPP.RECT PR ONE (23:29)
[2019-01-03] MEDS ORDERED: PROMETHAZINE HCL 25 MG SUPP.RECT PR PRN (23:41)
[2019-01-04 04:26] LABS: ABSOLUTE LYMPHOCYTES (AUTO) 0.6 10^3/uL (0.5-4.7); ABSOLUTE MONOCYTES (AUTO) 1.1 10^3/uL (0.1-1.4); ABSOLUTE NEUT (AUTO) 9.1 10^3/uL (1.7-8.2); BASOPHILS % (AUTO) 0.2 % (0-2); HEMATOCRIT 36.4 % (36.0-47.0); HEMOGLOBIN 12.2 g/dL (12.0-15.5); LYMPHOCYTES % (AUTO) 5.8 % (13-45); MEAN CORPUSCULAR HEMOGLOBIN 30.8 pg (27.0-33.4); MEAN CORPUSCULAR HGB CONC 33.7 g/dL (32.0-36.0); MEAN CORPUSCULAR VOLUME 91 fl (80-97); MONOCYTES % (AUTO) 10.2 % (3-13); PLATELET COUNT 405 10^3/uL (150-450); RED BLOOD COUNT 3.98 10^6/uL (3.72-5.28); RED CELL DISTRIBUTION WIDTH 14.6 % (11.5-14.0); SEGMENTED NEUTROPHILS % (AUTO) 83.8 % (42-78); TOTAL CELLS COUNTED % (AUTO) 100 %; WHITE BLOOD COUNT 10.9 10^3/uL (4.0-10.5)
[2019-01-04 04:45] LABS: ANION GAP 7 (5-19); BLOOD UREA NITROGEN 24 mg/dL (7-20); CALCIUM 8.8 mg/dL (8.4-10.2); CARBON DIOXIDE 23 mmol/L (22-30); CHLORIDE 106 mmol/L (98-107); GLUCOSE 118 mg/dL (75-110)
[2019-01-04] MEDS: HEPARIN SOD (PORCINE) 5,000 UNIT/ML 1 ML VIAL SUBCUT SCH ×3 (05:34→21:25)
[2019-01-04] MEDS: LEVOTHYROXINE SODIUM 0.1 MG TABLET PO SCH (05:34)
[2019-01-04] MEDS: NORMAL SALINE 1000 ML 1,000 ML IV PRN ×2 (07:01→19:45)
--- NOTE | 2019-01-04 09:35 | RADIOLOGY REPORT (SQ) ---
EXAM DESCRIPTION: CT RT UPPER EXTREMITY WITHOUT COMPLETED DATE/TIME: 01/04/2019 7:51 am REASON FOR STUDY: evaluate Right shoulder fracture COMPARISON: None. TECHNIQUE: Axial imaging performed through the right shoulder with reformatted coronal and sagittal imaging windowed for bone and soft tissues. Images saved to PACS. 3D IMAGING: Were 3D images as MIP, SSD, or volume rendering performed at the work station? Yes All CT scanners at this facility use dose modulation, iterative reconstruction, and/or weight based d osing when appropriate to reduce radiation dose to as low as reasonably achievable (ALARA). [facility]: Dose Right [facility]: CareDose [facility]: Dose Right [facility]: Teradose 4D [facility]: [employer] LIMITATIONS: None. RADIATION DOSE: CT Rad equipment meets quality standard of care and radiation dose reduction techniq ues were employed. CTDIvol: 9.0 mGy. DLP: 221 mGy-cm. mGy. FINDINGS: SOFT TISSUES: No obvious swelling or foreign body. BONES: There is anterior subluxation of the humeral head with respect to the glenoid. No significant fracture is seen. There are extensive degenerative changes with marginal osteophytes arising from t he humeral head and from the inferior glenoid. MINERALIZATION: Normal. OTHER: No other significant finding. 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 Degenerative auguste ges are present. No fracture is appreciated. Images are available in PACs for review. 3D images ar e available. TECHNICAL DOCUMENTATION: JOB ID: [id number] Quality ID # [id number]: Final reports with documentation of one or more dose reduction techniques (e.g., Au tomated exposure control, adjustment of the mA and/or kV according to patient size, use of iterative reconstruction technique) 2010 [employer]- All Rights Reserved Reading location - IP/workstation name: [email or web address]
[2019-01-04] MEDS ORDERED: FAMOTIDINE INJ/PF 20 MG/2 ML SDV IV SCH (10:00)
[2019-01-04] MEDS: CALCIUM CARBONATE 500 MG TABLET PO SCH ×2 (10:17→19:02)
[2019-01-04] MEDS: LACTULOSE SYRUP 20 GM/30 ML UDCUP PO PRN (10:17)
[2019-01-04] MEDS: POLYETHYLENE GLYCOL 3350 POWDER 17 GM/1 PACKET PO SCH (10:17)
[2019-01-04] MEDS: ATENOLOL 50 MG TABLET PO SCH (10:18)
[2019-01-04] MEDS: MULTIVITAMIN TABLET PO SCH (10:18)
[2019-01-04] MEDS: CHOLECALCIFEROL (D3) 1,000 UNIT (25 MCG) TABLET PO SCH (10:18)
--- NOTE | 2019-01-04 13:02 | PDOC PROGRESS REPORT ---
Subjective Progress Note for:: 01/04/19 Subjective:: Patient is seen resting in bed. She is awake, alert, oriented x3. She denies chest pain, shortness of breath or dyspnea. She denies any nausea presently.She has not had any further vomiting today she is drinking liquids and taking her medications. Her abdominal pain is much improved. She denies any dysuria. She denies any fevers or chills. She denies any significant arthralgias or myalgias. She states her right shoulder only hurts when she uses her walker. Denies any falls recently. She does not recall any recent injury to her shoulder. She has been following up with Dr. Vance for her left hip since she had surgery in July. Reason For Visit: FECAL IMPACTON, PSBO ABD PAIN Physical Exam Vital Signs: Temp Pulse Resp BP Pulse Ox 99.0 F 67 20 160/67 H 94 01/04/19 11:18 01/04/19 11:18 01/04/19 11:18 01/04/19 11:18 01/04/19 11:18 Intake & Output 01/03/19 01/04/19 01/05/19 06:59 06:59 06:59 Intake Total 8731 684 2950 Output Total 1 400 Balance 3890 226 5914 Weight 59.4 kg 59.4 kg General appearance: PRESENT: no acute distress, thin, well-developed, well- nourished Head exam: PRESENT: atraumatic, normocephalic Eye exam: PRESENT: conjunctiva pink, EOMI, PERRLA. ABSENT: scleral icterus Ear exam: PRESENT: normal external ear exam Mouth exam: PRESENT: moist, tongue midline Neck exam: ABSENT: carotid bruit, JVD, lymphadenopathy, thyromegaly Respiratory exam: PRESENT: clear to auscultation delfina. ABSENT: rales, rhonchi, wheezes Cardiovascular exam: PRESENT: RRR. ABSENT: diastolic murmur, rubs, systolic murmur Pulses: PRESENT: normal dorsalis pedis pul Vascular exam: PRESENT: normal capillary refill GI/Abdominal exam: PRESENT: distended - mildly improved from previous, hypoactive bowel sounds, soft Rectal exam: PRESENT: deferred Extremities exam: PRESENT: tenderness - Right anterior upper humerus. ABSENT: calf tenderness, clubbing, pedal edema Musculoskeletal exam: PRESENT: deformity, tenderness - Right shoulder Neurological exam: PRESENT: alert, awake, oriented to person, oriented to place, oriented to time, oriented to situation, CN II-XII grossly intact. ABSENT: motor sensory deficit Psychiatric exam: PRESENT: appropriate affect, normal mood. ABSENT: homicidal ideation, suicidal ideation Skin exam: PRESENT: dry, intact, warm. ABSENT: cyanosis, rash Results Laboratory Results: 01/04/19 03:57 01/04/19 03:57 01/04/19 01/04/19 03:57 03:57 WBC 10.9 H RBC 3.98 Hgb 12.2 Hct 36.4 MCV 91 MCH 30.8 MCHC 33.7 RDW 14.6 H Plt Count 405 Seg Neutrophils % 83.8 H Lymphocytes % 5.8 L Monocytes % 10.2 Eosinophils % 0.0 Basophils % 0.2 Absolute Neutrophils 9.1 H Absolute Lymphocytes 0.6 Absolute Monocytes 1.1 Absolute Eosinophils 0.0 Absolute Basophils 0.0 Sodium 135.7 L Potassium 4.0 Chloride 106 Carbon Dioxide 23 Anion Gap 7 BUN 24 H Creatinine 0.65 Est GFR ( Amer) > 60 Est GFR (Non-Af Amer) > 60 Glucose 118 H Calcium 8.8 Impressions: Chest X-Ray 01/01/19 13:15 IMPRESSION: 1. No acute abnormality of the lungs in AP projection. 2. There is a probable fracture deformity of the proximal right humerus with probable anterior dislocation of the shoulder joint. Consider dedicated shoulder radiographs to further evaluate. KUB X-Ray 01/01/19 13:15 IMPRESSION: There are gas-filled, mildly distended loops of small bowel in the upper left abdomen measuring up to 4.0 cm in caliber. There is bowel suture p resent in the mid pelvis. There is gas present in the colon and stool present in the rectum. No free air in the abdomen. Findings are of uncertain significance. Consider CT to further evaluate if there is concern for bowel obstruction, especially in the setting of prior surgery. Abdomen/Pelvis CT 01/01/19 15:12 IMPRESSION: 1. Dilated fluid-filled loops of small bowel concerning for at least partial small bowel obstruction. Transition point is not identified. 2. Small amount of free fluid in the abdomen and pelvis. 3. Osseous findings as described. Shoulder X-Ray 01/01/19 18:51 IMPRESSION: Significantly abnormal right humeral head which is dislocated and fractured. Acute versus chronic. Severe osteoporosis. 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 Degenerative changes are present. No fracture is appreciated. Images are available in PACs for review. 3D images are available. Assessment and Plan - Diagnosis (1) Partial bowel obstruction Is this a current diagnosis for this admission?: Yes Plan: Improving after multiple enemas. Lactulose enema finally had results. Continue daily miralax, colace, and lactulose po prn Secondary to fecal impaction, opiate use for hip and decreased activity Nursing report she did vomit after cipro last night Reports feeling much better today. (2) Constipation Is this a current diagnosis for this admission?: Yes Plan: Continue laxatives as needed (3) Fecal impaction Is this a current diagnosis for this admission?: Yes Plan: Trial enemas, stool softeners and MiraLAX daily, discharge with bowel regiment if narcotics required (4) Right humeral fracture Is this a current diagnosis for this admission?: No Plan: CT of the right shoulder ordered by Dr Vance today shows no acute fracture or acute dislocation, but chronic subluxation of the right humeral head. Daughter- nain states she noted this weeks ago when she was showering (5) Hypercholesterolemia Is this a current diagnosis for this admission?: Yes Plan: Continue statin (6) Hypothyroidism Is this a current diagnosis for this admission?: Yes Plan: Continue Synthroid - Time Time Spent with patient: 25 Time Spent with patient: 25-34 minutes Medications reviewed and adjusted accordingly: Yes Anticipated discharge: Home with Homehealth - Inpatient Certification Based on my medical assessment, after consideration of the patient's comorbidities, presenting symptoms, or acuity I expect that the services needed warrant INPATIENT care.: Yes Medical Necessity: Need Close Monitoring Due to Risk of Patient Decompensation, Need For IV Fluids, Risk of Complication if Not Cared For in Hospital
[2019-01-04] MEDS ORDERED: LACTULOSE SYRUP 20 GM/30 ML UDCUP PO PRN (15:00)
[2019-01-04] MEDS: ONDANSETRON HCL INJ/PF 4 MG/2 ML SDV IV PRN (16:16)
[2019-01-05] MEDS: NORMAL SALINE 1000 ML 1,000 ML IV PRN (02:34)
[2019-01-05] MEDS: HEPARIN SOD (PORCINE) 5,000 UNIT/ML 1 ML VIAL SUBCUT SCH ×3 (06:21→21:09)
[2019-01-05] MEDS: ONDANSETRON HCL INJ/PF 4 MG/2 ML SDV IV PRN ×3 (06:31→21:52)
[2019-01-05] MEDS: LEVOTHYROXINE SODIUM 0.1 MG TABLET PO SCH (09:09)
[2019-01-05] MEDS: MULTIVITAMIN TABLET PO SCH (09:09)
[2019-01-05] MEDS: ATENOLOL 50 MG TABLET PO SCH (09:09)
[2019-01-05] MEDS: CALCIUM CARBONATE 500 MG TABLET PO SCH ×2 (09:09→17:38)
[2019-01-05] MEDS: FAMOTIDINE INJ/PF 20 MG/2 ML SDV IV SCH (09:09)
[2019-01-05] MEDS: POLYETHYLENE GLYCOL 3350 POWDER 17 GM/1 PACKET PO SCH (09:09)
[2019-01-05] MEDS: CHOLECALCIFEROL (D3) 1,000 UNIT (25 MCG) TABLET PO SCH (09:10)
--- NOTE | 2019-01-05 09:30 | RADIOLOGY REPORT (SQ) ---
EXAM DESCRIPTION: KUB/ABDOMEN (SINGLE VIEW) COMPLETED DATE/TIME: 01/05/2019 9:00 am REASON FOR STUDY: partial bowel ob COMPARISON: 01/01/2019 CT abdomen pelvis KUB 01/01/2019 NUMBER OF VIEWS: One view. TECHNIQUE: Supine radiographic image of the abdomen acquired. LIMITATIONS: None. FINDINGS: BOWEL GAS PATTERN: Persistent mild distention of left upper quadrant small bowel loops. There is moderate gas and stool in the ascending colon. No free intraperitoneal air. CALCIFICATIONS: Calcified 2 cm nodule in the pelvis adjacent to bowel anastomotic jami is unchange d. Radiodense 2 cm nodule in the right upper quadrant may represent a barium filled right colon divertic ulum. SOFT TISSUES: No gross mass or suggestion of organomegaly. HARDWARE: Clips right upper quadrant post cholecystectomy BONES: Osteoporotic with old left proximal femur hardware. OTHER: No other significant finding. IMPRESSION: Persistent dilated small bowel loops in the left upper quadrant TECHNICAL DOCUMENTATION: JOB ID: [id number] [employer]- All Rights Reserved Reading location - IP/workstation name: [email or web address]
--- NOTE | 2019-01-05 10:17 | PDOC PROGRESS REPORT ---
Subjective Progress Note for:: 01/05/19 Subjective:: 88 year old female with a partial past medical history of hypertension, arthritis, coronary artery disease, hypertension and left hip fracture. She presents with 4 days of abdominal pain nausea vomiting of gastric content. Denying chest pain shortness of breath or palpitations admitting incomplete bowel movements. In the emergency room she is found to have fecal impaction, right shoulder fracture and dislocation and referred to the hospitalist for admission. Patient denies trauma or sudden onset to shoulder pain, is only tender when ambulating with her walker. She denies recent change of medication regiment or diet and is otherwise felt well 01/05/[id number]-hrrq-old female with medical history of hypertension, carotid disease, hypertension, left hip fracture admitted with history of abdominal pain associated with nausea and vomitings. She still having the bilious vomiting's and patient is receiving any mass. KUB done this morning indicates persistent dilated small bowel seen in the left upper quadrant. Plan is to do the gallbladder ultrasound and surgical consult was requested, I personally spoke to Dr. Lyles. Reason For Visit: FECAL IMPACTON, PSBO ABD PAIN Physical Exam Vital Signs: Temp Pulse Resp BP Pulse Ox 98.1 F 70 20 174/72 H 97 01/05/19 07:18 01/05/19 07:18 01/05/19 07:18 01/05/19 07:18 01/05/19 07:18 Intake & Output 01/04/19 01/05/19 01/06/19 06:59 06:59 06:59 Intake Total 560 3660 1000 Output Total 400 700 Balance 160 2960 1000 Weight 59.4 kg 59.4 kg General appearance: PRESENT: cooperative, mild distress Head exam: PRESENT: atraumatic Eye exam: PRESENT: PERRLA Teeth exam: PRESENT: poor dentation Neck exam: ABSENT: carotid bruit, JVD, lymphadenopathy, thyromegaly Respiratory exam: PRESENT: decreased breath sounds Cardiovascular exam: PRESENT: RRR. ABSENT: diastolic murmur, rubs, systolic murmur GI/Abdominal exam: PRESENT: normal bowel sounds, soft. ABSENT: rebound, rigid, tenderness Rectal exam: PRESENT: deferred Extremities exam: PRESENT: full ROM. ABSENT: calf tenderness, clubbing, pedal edema Neurological exam: PRESENT: alert, awake, oriented to person, oriented to place, oriented to time, oriented to situation, CN II-XII grossly intact. ABSENT: motor sensory deficit Psychiatric exam: PRESENT: appropriate affect, normal mood. ABSENT: homicidal ideation, suicidal ideation Results Laboratory Results: 01/04/19 03:57 01/04/19 03:57 Impressions: Chest X-Ray 01/01/19 13:15 IMPRESSION: 1. No acute abnormality of the lungs in AP projection. 2. There is a probable fracture deformity of the proximal right humerus with probable anterior dislocation of the shoulder joint. Consider dedicated shoulder radiographs to further evaluate. Abdomen/Pelvis CT 01/01/19 15:12 IMPRESSION: 1. Dilated fluid-filled loops of small bowel concerning for at least partial small bowel obstruction. Transition point is not identified. 2. Small amount of free fluid in the abdomen and pelvis. 3. Osseous findings as described. Shoulder X-Ray 01/01/19 18:51 IMPRESSION: Significantly abnormal right humeral head which is dislocated and fractured. Acute versus chronic. Severe osteoporosis. 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 Degenerative changes are present. No fracture is appreciated. Images are available in PACs for review. 3D images are available. KUB X-Ray 01/05/19 00:00 IMPRESSION: Persistent dilated small bowel loops in the left upper quadrant Assessment and Plan - Diagnosis (1) Fecal impaction Is this a current diagnosis for this admission?: Yes Plan: Trial enemas, stool softeners and MiraLAX daily, discharge with bowel regiment if narcotics required 01/05/2019-patient admitted with the fecal impaction and no mention of fecal impaction in the KUB today. Patient is receiving any mass and stool softeners and MiraLAX. Patient is still complaining of nausea and throwing back bilious colored material. KUB done this morning shows persistent dilated small bowels in the left upper quadrant. Plan is to do the gallbladder ultrasound and surgical consult was requested for further recommendations. (2) Partial bowel obstruction Is this a current diagnosis for this admission?: Yes Plan: Improving after multiple enemas. Lactulose enema finally had results. Continue daily miralax, colace, and lactulose po prn Secondary to fecal impaction, opiate use for hip and decreased activity Nursing report she did vomit after cipro last night Reports feeling much better today. 01/05/2019-patient admitted with partial bowel obstruction KUB this morning indicates persistent dilated small bowel loops in the left upper quadrant surgical consult was requested. 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 Daughter- inlaw states she noted this weeks ago when she was showering 01/05/2019-CT scan of the right shoulder indicates chronic subluxation of the right humeral head. Ortho consult requested. - Time Time Spent with patient: 15-24 minutes Medications reviewed and adjusted accordingly: Yes Anticipated discharge: Home
[2019-01-05] MEDS: CALCIUM CARBONATE 500 MG TAB.CHEW PO SCH ×3 (13:04→21:53)
[2019-01-05] MEDS: HYDROCODONE/ACETAMINOPHEN 10-325 MG TABLET PO PRN (14:20)
[2019-01-05] MEDS ORDERED: GLYCERIN 99.5% (ANHYDROUS) 177 ML PR PRN (18:15)
[2019-01-05] MEDS ORDERED: MINERAL OIL ENEMA 133 ML PR PRN (18:16)
--- NOTE | 2019-01-05 20:48 | PDOC PROGRESS REPORT ---
Subjective Progress Note for:: 01/05/19 Subjective:: 88-year-old female with a humeral head fracture and severe constipation. She has evidence of small bowel obstruction due to her large stool burden. She received several small volume enemas, however they have failed to provide any results. Patient's last bowel movement was many days ago. The enemas returned little more than water. The patient feels bloated. She reports nausea and vomiting. She denies significant amounts of abdominal pain. She denies chest pain, shortness of breath, blurry vision, dizziness. She has refused an NG tube in the past, and continues to do so. Reason For Visit: FECAL IMPACTON, PSBO ABD PAIN Physical Exam Vital Signs: Temp Pulse Resp BP Pulse Ox 98.6 F 72 16 169/70 H 96 01/05/19 17:37 01/05/19 19:00 01/05/19 17:37 01/05/19 17:37 01/05/19 17:37 Intake & Output 01/04/19 01/05/19 01/06/19 06:59 06:59 06:59 Intake Total 560 3660 1260 Output Total 400 700 600 Balance 160 2960 660 Weight 59.4 kg 59.4 kg General appearance: PRESENT: cooperative, other - Elderly Head exam: PRESENT: atraumatic, normocephalic Eye exam: PRESENT: EOMI, PERRLA. ABSENT: scleral icterus Mouth exam: PRESENT: neck supple Neck exam: ABSENT: meningismus, tenderness, thyromegaly, tracheal deviation Respiratory exam: PRESENT: unlabored. ABSENT: tachypnea, wheezes Pulses: PRESENT: normal radial pulses Vascular exam: ABSENT: pallor GI/Abdominal exam: PRESENT: distended, soft. ABSENT: tenderness Rectal exam: PRESENT: deferred Gentrourinary exam: ABSENT: erythema Extremities exam: ABSENT: clubbing Neurological exam: PRESENT: alert, awake, oriented to person, oriented to place, oriented to time, oriented to situation, CN II-XII grossly intact Psychiatric exam: ABSENT: agitated, anxious, depressed Focused psych exam: ABSENT: delusional Skin exam: ABSENT: cyanosis, erythema, jaundice Results Laboratory Results: 01/04/19 03:57 01/04/19 03:57 Impressions: Chest X-Ray 01/01/19 13:15 IMPRESSION: 1. No acute abnormality of the lungs in AP projection. 2. There is a probable fracture deformity of the proximal right humerus with probable anterior dislocation of the shoulder joint. Consider dedicated shoulder radiographs to further evaluate. Abdomen/Pelvis CT 01/01/19 15:12 IMPRESSION: 1. Dilated fluid-filled loops of small bowel concerning for at least partial small bowel obstruction. Transition point is not identified. 2. Small amount of free fluid in the abdomen and pelvis. 3. Osseous findings as described. Shoulder X-Ray 01/01/19 18:51 IMPRESSION: Significantly abnormal right humeral head which is dislocated and fractured. Acute versus chronic. Severe osteoporosis. 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 Degenerative changes are present. No fracture is appreciated. Images are available in PACs for review. 3D images are available. KUB X-Ray 01/05/19 00:00 IMPRESSION: Persistent dilated small bowel loops in the left upper quadrant Assessment & Plan - Diagnosis (1) Constipation Qualifiers: Constipation type: unspecified constipation type Qualified Code(s): K59.00 - Constipation, unspecified Is this a current diagnosis for this admission?: Yes (2) Partial bowel obstruction Qualifiers: Intestinal obstruction type: other intestinal obstruction Qualified Code(s): K56.690 - Other partial intestinal obstruction Is this a current diagnosis for this admission?: Yes - Plan Summary Plan Summary: This is an 88-year-old female with severe constipation. It has led to a partial small bowel obstruction due to impaction of feces in the right colon. The patient received several small-volume enemas, without significant results. I wi ll give the patient a larger volume enema with mineral oil, glycerin, and peroxide. Hopefully this will help loosen the stools. If not, the patient may require an NG tube for decompression and administration of mineral oil from above. I will follow this patient with you.
[2019-01-06] MEDS: ONDANSETRON HCL INJ/PF 4 MG/2 ML SDV IV PRN (01:37)
[2019-01-06] MEDS: HEPARIN SOD (PORCINE) 5,000 UNIT/ML 1 ML VIAL SUBCUT SCH ×3 (05:00→21:05)
[2019-01-06] MEDS: LEVOTHYROXINE SODIUM 0.1 MG TABLET PO SCH (05:13)
[2019-01-06 08:55] LABS: HEMATOCRIT 39.9 % (36.0-47.0); HEMOGLOBIN 13.1 g/dL (12.0-15.5); MEAN CORPUSCULAR HEMOGLOBIN 30.1 pg (27.0-33.4); MEAN CORPUSCULAR HGB CONC 32.8 g/dL (32.0-36.0); MEAN CORPUSCULAR VOLUME 92 fl (80-97); RED BLOOD COUNT 4.34 10^6/uL (3.72-5.28); RED CELL DISTRIBUTION WIDTH 14.7 % (11.5-14.0); WHITE BLOOD COUNT 15.6 10^3/uL (4.0-10.5)
--- NOTE | 2019-01-06 08:56 | RADIOLOGY REPORT (SQ) ---
EXAM DESCRIPTION: U/S ABDOMEN LIMITED W/O DOP COMPLETED DATE/TIME: 01/06/2019 4:38 am REASON FOR STUDY: bilious vomitings COMPARISON: None. TECHNIQUE: Dynamic and static grayscale images acquired of the abdomen and recorded on PACS. Additio nal selected color Doppler and spectral images recorded. LIMITATIONS: None. FINDINGS: PANCREAS: Increased echogenicity without focal masses. Visualized pancreatic duct normal caliber. LIVER: No masses. Echotexture increased. LIVER VASCULATURE: Normal directional flow of the main portal vein and hepatic veins. GALLBLADDER: Surgically absent. ULTRASOUND-DETECTED TA'S SIGN: Negative. INTRAHEPATIC DUCTS AND COMMON DUCT: There is dilation of the CBD measuring up to 1.4 cm. Questionabl e echogenic foci within the CBD without definitive shadowing. INFERIOR VENA CAVA: Normal flow. AORTA: No aneurysm. RIGHT KIDNEY: Normal size measuring 7.1 cm. Normal echogenicity. No solid or suspicious masses. No h ydronephrosis. No calcifications. PERITONEAL AND RIGHT PLEURAL SPACE: No ascites or effusions. OTHER: No other significant findings. IMPRESSION: Dilation of the CBD measuring 14 mm with questionable intraluminal stone. Dilation may be in part related to post cholecystectomy and senescent change although distal obstructing lesion is not entirely excluded. No intrahepatic ductal dilation. Recommend correlation with LFTs. ERCP or MRCP could be considered for further characterization. TECHNICAL DOCUMENTATION: JOB ID: [id number] [email or web address]- All Rights Reserved Reading location - IP/workstation name: [email or web address]
[2019-01-06 09:07] LABS: ALBUMIN 3.1 g/dL (3.5-5.0); ALKALINE PHOSPHATASE 156 U/L (38-126); ANION GAP 10 (5-19); ASPARTATE AMINO TRANSFERASE 19 U/L (14-36); BILIRUBIN,DIRECT 0.3 mg/dL (0.0-0.4); BILIRUBIN,TOTAL 0.6 mg/dL (0.2-1.3); BLOOD UREA NITROGEN 27 mg/dL (7-20); CALCIUM 9.1 mg/dL (8.4-10.2); CARBON DIOXIDE 23 mmol/L (22-30); CHLORIDE 104 mmol/L (98-107); GLUCOSE 120 mg/dL (75-110); POTASSIUM 3.6 mmol/L (3.6-5.0); TOTAL PROTEIN 6.4 g/dL (6.3-8.2)
[2019-01-06 09:20] LABS: ABSOLUTE LYMPHOCYTES# (MANUAL) 0.5 10^3/uL (0.5-4.7); ABSOLUTE MONOCYTES # (MANUAL) 1.1 10^3/uL (0.1-1.4); BASOPHILS % (MANUAL) 0 % (0-2); EOSINOPHILS % (MANUAL) 0 % (0-6); LYMPHOCYTES % (MANUAL) 3 % (13-45); MONOCYTES % (MANUAL) 7 % (3-13); SEGMENTED NEUTROPHILS % (MAN) 90 % (42-78); TOTAL CELLS COUNTED 100
[2019-01-06 09:21] LABS: ANISOCYTOSIS SLIGHT; PLATELET COMMENT ADEQUATE; POLYCHROMASIA SLIGHT; TOXIC VACUOLATION PRESENT
[2019-01-06 09:22] LABS: PLATELET COUNT 375 10^3/uL (150-450)
[2019-01-06] MEDS: POLYETHYLENE GLYCOL 3350 POWDER 17 GM/1 PACKET PO SCH (09:27)
[2019-01-06] MEDS: CALCIUM CARBONATE 500 MG TAB.CHEW PO SCH ×4 (09:27→21:10)
[2019-01-06] MEDS: CALCIUM CARBONATE 500 MG TABLET PO SCH ×2 (09:28→17:43)
[2019-01-06] MEDS: LISINOPRIL 10 MG TABLET PO SCH (09:28)
[2019-01-06] MEDS: FAMOTIDINE INJ/PF 20 MG/2 ML SDV IV SCH (09:28)
[2019-01-06] MEDS: MULTIVITAMIN TABLET PO SCH (09:28)
[2019-01-06] MEDS: CHOLECALCIFEROL (D3) 1,000 UNIT (25 MCG) TABLET PO SCH (09:28)
[2019-01-06] MEDS: ATENOLOL 50 MG TABLET PO SCH (09:28)
--- NOTE | 2019-01-06 09:56 | RADIOLOGY REPORT (SQ) ---
EXAM DESCRIPTION: KUB/ABDOMEN (SINGLE VIEW) COMPLETED DATE/TIME: 01/06/2019 9:39 am REASON FOR STUDY: constipation, sbo COMPARISON: 01/05/2019, 01/01/2019 NUMBER OF VIEWS: One view. TECHNIQUE: Supine radiographic image of the abdomen acquired. LIMITATIONS: None. FINDINGS: BOWEL GAS PATTERN: Persistent but decreased gas dilated loops of small bowel within the le ft abdomen measuring up to 3.2 cm. No evidence of large volume free intraperitoneal gas in the supin e projection. CALCIFICATIONS: Unchanged calcification over the right lower quadrant and pelvis. SOFT TISSUES: No gross mass or suggestion of organomegaly. HARDWARE: Partially visualized left hip hardware with extensive heterotopic ossification. BONES: No acute bony abnormality. Decreased osseous mineralization. Lower lumbar facet arthropathy and spondylosis. Partially visualized left hip dynamic screw fixation and plate and screw hardware. OTHER: No other significant finding. IMPRESSION: Persistent but mildly decreased gas dilated loops of small bowel within the left abdomen measuring up to 3.2 cm. TECHNICAL DOCUMENTATION: JOB ID: [id number] [email or web address]- All Rights Reserved Reading location - IP/workstation name: [email or web address]
--- NOTE | 2019-01-06 10:01 | PDOC PROGRESS REPORT ---
Subjective Progress Note for:: 01/06/19 Subjective:: 88 year old female with a partial past medical history of hypertension, arthritis, coronary artery disease, hypertension and left hip fracture. She presents with 4 days of abdominal pain nausea vomiting of gastric content. Denying chest pain shortness of breath or palpitations admitting incomplete bowel movements. In the emergency room she is found to have fecal impaction, right shoulder fracture and dislocation and referred to the hospitalist for admission. Patient denies trauma or sudden onset to shoulder pain, is only tender when ambulating with her walker. She denies recent change of medication regiment or diet and is otherwise felt well 01/05/[id number]-tyak-old female with medical history of hypertension, carotid disease, hypertension, left hip fracture admitted with history of abdominal pain associated with nausea and vomitings. She still having the bilious vomiting's and patient is receiving any mass. KUB done this morning indicates persistent dilated small bowel seen in the left upper quadrant. Plan is to do the gallbladder ultrasound and surgical consult was requested, I personally spoke to Dr. Lyles. 01/06/2019-no acute events in the last 24 hours. Afebrile. He denies any nausea denies any vomitings. Patient having good bowel movements. KUB done this morning shows slightly decreased in size of the dilated small bowel loops. Plan is to continue the enema treatment. Reason For Visit: FECAL IMPACTON, PSBO ABD PAIN Physical Exam Vital Signs: Temp Pulse Resp BP Pulse Ox 98.5 F 81 12 142/84 H 92 01/06/19 07:50 01/06/19 07:50 01/06/19 07:50 01/06/19 07:50 01/06/19 07:50 Intake & Output 01/05/19 01/06/19 01/07/19 06:59 06:59 06:59 Intake Total 3660 1478 Output Total 700 1750 Balance 2960 -272 Weight 59.4 kg 60 kg General appearance: PRESENT: no acute distress, cooperative Head exam: PRESENT: atraumatic Eye exam: PRESENT: PERRLA Mouth exam: PRESENT: moist, tongue midline Teeth exam: PRESENT: poor dentation Neck exam: ABSENT: carotid bruit, JVD, lymphadenopathy, thyromegaly Respiratory exam: PRESENT: decreased breath sounds Cardiovascular exam: PRESENT: RRR. ABSENT: diastolic murmur, rubs, systolic murmur GI/Abdominal exam: PRESENT: normal bowel sounds, soft. ABSENT: distended, guarding, mass, organolmegaly, rebound, tenderness Rectal exam: PRESENT: deferred Extremities exam: PRESENT: full ROM. ABSENT: calf tenderness, clubbing, pedal edema Neurological exam: PRESENT: alert, awake, oriented to person, oriented to place, oriented to time, oriented to situation, CN II-XII grossly intact. ABSENT: motor sensory deficit Psychiatric exam: PRESENT: appropriate affect, normal mood. ABSENT: homicidal ideation, suicidal ideation Results Laboratory Results: 01/06/19 08:16 01/06/19 08:16 01/06/19 01/06/19 08:16 08:16 WBC 15.6 H RBC 4.34 Hgb 13.1 Hct 39.9 MCV 92 MCH 30.1 MCHC 32.8 RDW 14.7 H Plt Count 375 Seg Neutrophils % Not Reportable Lymphocytes % Not Reportable Monocytes % Not Reportable Eosinophils % Not Reportable Basophils % Not Reportable Absolute Neutrophils Not Reportable Absolute Lymphocytes Not Reportable Absolute Monocytes Not Reportable Absolute Eosinophils Not Reportable Absolute Basophils Not Reportable Sodium 137.0 Potassium 3.6 Chloride 104 Carbon Dioxide 23 Anion Gap 10 BUN 27 H Creatinine 0.68 Est GFR ( Amer) > 60 Est GFR (Non-Af Amer) > 60 Glucose 120 H Calcium 9.1 Magnesium 1.8 Total Bilirubin 0.6 AST 19 Alkaline Phosphatase 156 H Total Protein 6.4 Albumin 3.1 L Impressions: Chest X-Ray 01/01/19 13:15 IMPRESSION: 1. No acute abnormality of the lungs in AP projection. 2. There is a probable fracture deformity of the proximal right humerus with probable anterior dislocation of the shoulder joint. Consider dedicated shoulder radiographs to further evaluate. Abdomen/Pelvis CT 01/01/19 15:12 IMPRESSION: 1. Dilated fluid-filled loops of small bowel concerning for at least partial small bowel obstruction. Transition point is not identified. 2. Small amount of free fluid in the abdomen and pelvis. 3. Osseous findings as described. Shoulder X-Ray 01/01/19 18:51 IMPRESSION: Significantly abnormal right humeral head which is dislocated and fractured. Acute versus chronic. Severe osteoporosis. 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 Degenerative changes are present. No fracture is appreciated. Images are available in PACs for review. 3D images are available. Abdomen Ultrasound 01/06/19 00:00 IMPRESSION: Dilation of the CBD measuring 14 mm with questionable intraluminal stone. Dilation may be in part related to post cholecystectomy and senescent change although distal obstructing lesion is not entirely excluded. No intrahepatic ductal dilation. Recommend correlation with LFTs. ERCP or MRCP could be considered for further characterization. KUB X-Ray 01/06/19 00:00 IMPRESSION: Persistent but mildly decreased gas dilated loops of small bowel within the left abdomen measuring up to 3.2 cm. Assessment and Plan - Diagnosis (1) Fecal impaction Is this a current diagnosis for this admission?: Yes Plan: Trial enemas, stool softeners and MiraLAX daily, discharge with bowel regiment if narcotics required 01/05/2019-patient admitted with the fecal impaction and no mention of fecal impaction in the KUB today. Patient is receiving any mass and stool softeners and MiraLAX. Patient is still complaining of nausea and throwing back bilious colored material. KUB done this morning shows persistent dilated small bowels in the left upper quadrant. Plan is to do the gallbladder ultrasound and sawyer rgical consult was requested for further recommendations. 01/06/[id number]-wcrx-old female admitted with fecal impaction she was started on a high volume anemia since yesterday. She is having a large bowel movements. KUB did done this morning indicates decrease in size of the dilated small bowel loops. Patient denies any nausea and vomitings. Plan is to continue the present management. (2) Partial bowel obstruction Qualifiers: Intestinal obstruction type: other intestinal obstruction Qualified Code(s): K56.690 - Other partial intestinal obstruction Is this a current diagnosis for this admission?: Yes Plan: Improving after multiple enemas. Lactulose enema finally had results. Continue daily miralax, colace, and lactulose po prn Secondary to fecal impaction, opiate use for hip and decreased activity Nursing report she did vomit after cipro last night Reports feeling much better today. 01/05/2019-patient admitted with partial bowel obstruction KUB this morning indicates persistent dilated small bowel loops in the left upper quadrant surgical consult was requested. 01/06/2019-patient admitted with partial bowel obstruction most likely secondary to severe constipation patient is receiving high-volume enemas. KUB shows slight improvement this morning. Patient denies any nausea and vomitings able to tolerate the morning breakfast. 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 Daughter- inlfalguni states she noted this weeks ago when she was showering 01/05/2019-CT scan of the right shoulder indicates chronic subluxation of the right humeral head. Ortho consult requested. 01/06/2019-patient has a chronic subluxation of the right humeral head patient denies any pains at all today. Plan is to continue the conservative management. - Time Time Spent with patient: 15-24 minutes Medications reviewed and adjusted accordingly: Yes Anticipated discharge: Home
[2019-01-06] MEDS: HYDROCODONE/ACETAMINOPHEN 10-325 MG TABLET PO PRN (18:46)
--- NOTE | 2019-01-06 19:10 | PDOC PROGRESS REPORT ---
Subjective Progress Note for:: 01/06/19 Subjective:: 88-year-old female with a humeral head fracture and severe constipation. She has evidence of small bowel obstruction due to her large stool burden. She received several small volume enemas, however they have failed to provide any results. Yesterday the patient received a mineral oil/glycerin/peroxide enema and had a moderate amount of stool expelled. She reports feeling somewhat better, but reports nausea and vomiting this morning after eating. She still denies significant amounts of abdominal pain. She denies chest pain, shortness of breath, blurry vision, dizziness. She has refused an NG tube in the past, and continues to do so. Reason For Visit: FECAL IMPACTON, PSBO ABD PAIN Physical Exam Vital Signs: Temp Pulse Resp BP Pulse Ox 97.5 F 71 12 148/73 H 96 01/06/19 11:26 01/06/19 14:00 01/06/19 11:26 01/06/19 11:26 01/06/19 11:26 Intake & Output 01/05/19 01/06/19 01/07/19 06:59 06:59 06:59 Intake Total 3660 1478 120 Output Total 700 1750 Balance 2960 -272 120 Weight 59.4 kg 60 kg General appearance: PRESENT: no acute distress, cooperative Head exam: PRESENT: atraumatic, normocephalic Eye exam: PRESENT: EOMI, PERRLA. ABSENT: scleral icterus Mouth exam: PRESENT: moist, neck supple Neck exam: ABSENT: meningismus, tenderness, thyromegaly, tracheal deviation Respiratory exam: PRESENT: unlabored. ABSENT: chest wall tenderness, tachypnea, wheezes Pulses: PRESENT: normal radial pulses Vascular exam: ABSENT: pallor GI/Abdominal exam: PRESENT: distended - mild, soft. ABSENT: guarding, rebound, rigid, tenderness Rectal exam: PRESENT: deferred Extremities exam: ABSENT: clubbing Neurological exam: PRESENT: alert, awake, oriented to person, oriented to place, oriented to time, oriented to situation Psychiatric exam: ABSENT: agitated, anxious, depressed Focused psych exam: ABSENT: delusional Skin exam: ABSENT: cyanosis, erythema, jaundice Results Laboratory Results: 01/06/19 08:16 01/06/19 08:16 01/06/19 01/06/19 08:16 08:16 WBC 15.6 H RBC 4.34 Hgb 13.1 Hct 39.9 MCV 92 MCH 30.1 MCHC 32.8 RDW 14.7 H Plt Count 375 Seg Neutrophils % Not Reportable Lymphocytes % Not Reportable Monocytes % Not Reportable Eosinophils % Not Reportable Basophils % Not Reportable Absolute Neutrophils Not Reportable Absolute Lymphocytes Not Reportable Absolute Monocytes Not Reportable Absolute Eosinophils Not Reportable Absolute Basophils Not Reportable Sodium 137.0 Potassium 3.6 Chloride 104 Carbon Dioxide 23 Anion Gap 10 BUN 27 H Creatinine 0.68 Est GFR ( Amer) > 60 Est GFR (Non-Af Amer) > 60 Glucose 120 H Calcium 9.1 Magnesium 1.8 Total Bilirubin 0.6 AST 19 Alkaline Phosphatase 156 H Total Protein 6.4 Albumin 3.1 L Impressions: Chest X-Ray 01/01/19 13:15 IMPRESSION: 1. No acute abnormality of the lungs in AP projection. 2. There is a probable fracture deformity of the proximal right humerus with probable anterior dislocation of the shoulder joint. Consider dedicated shoulder radiographs to further evaluate. Abdomen/Pelvis CT 01/01/19 15:12 IMPRESSION: 1. Dilated fluid-filled loops of small bowel concerning for at least partial small bowel obstruction. Transition point is not identified. 2. Small amount of free fluid in the abdomen and pelvis. 3. Osseous findings as described. Shoulder X-Ray 01/01/19 18:51 IMPRESSION: Significantly abnormal right humeral head which is dislocated and fractured. Acute versus chronic. Severe osteoporosis. 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 Degenerative changes are present. No fracture is appreciated. Images are available in PACs for review. 3D images are available. Abdomen Ultrasound 01/06/19 00:00 IMPRESSION: Dilation of the CBD measuring 14 mm with questionable intraluminal stone. Dilation may be in part related to post cholecystectomy and senescent change although distal obstructing lesion is not entirely excluded. No intrahepatic ductal dilation. Recommend correlation with LFTs. ERCP or MRCP could be considered for further characterization. KUB X-Ray 01/06/19 00:00 IMPRESSION: Persistent but mildly decreased gas dilated loops of small bowel within the left abdomen measuring up to 3.2 cm. Assessment & Plan - Diagnosis (1) Constipation Qualifiers: Constipation type: unspecified constipation type Qualified Code(s): K59.00 - Constipation, unspecified Is this a current diagnosis for this admission?: Yes (2) Partial bowel obstruction Qualifiers: Intestinal obstruction type: other intestinal obstruction Qualified Code(s): K56.690 - Other partial intestinal obstruction Is this a current diagnosis for this admission?: Yes - Plan Summary Plan Summary: This is an 88-year-old female with severe constipation. It has led to a partial small bowel obstruction due to impaction of feces in the right colon. The patient received an enema yesterday with moderate results. I will give the patient a large volume tap water enema today. Hopefully this will help loosen the stools. If not, the patient may require an NG tube for decompression and administration of mineral oil from above. She has again refused NG tube. I will follow this patient with you.
[2019-01-07 06:22] LABS: ABSOLUTE EOSINOPHILS # (AUTO) 0.2 10^3/uL (0.0-0.6); ABSOLUTE LYMPHOCYTES (AUTO) 1.2 10^3/uL (0.5-4.7); ABSOLUTE NEUT (AUTO) 15.4 10^3/uL (1.7-8.2); BASOPHILS % (AUTO) 0.1 % (0-2); EOSINOPHILS % (AUTO) 0.9 % (0-6); HEMATOCRIT 37.7 % (36.0-47.0); HEMOGLOBIN 12.4 g/dL (12.0-15.5); LYMPHOCYTES % (AUTO) 6.4 % (13-45); MEAN CORPUSCULAR HEMOGLOBIN 30.2 pg (27.0-33.4); MEAN CORPUSCULAR HGB CONC 32.9 g/dL (32.0-36.0); MEAN CORPUSCULAR VOLUME 92 fl (80-97); MONOCYTES % (AUTO) 10.9 % (3-13); PLATELET COUNT 339 10^3/uL (150-450); RED BLOOD COUNT 4.11 10^6/uL (3.72-5.28); SEGMENTED NEUTROPHILS % (AUTO) 81.7 % (42-78); TOTAL CELLS COUNTED % (AUTO) 100 %; WHITE BLOOD COUNT 18.9 10^3/uL (4.0-10.5)
[2019-01-07] MEDS: HEPARIN SOD (PORCINE) 5,000 UNIT/ML 1 ML VIAL SUBCUT SCH ×3 (06:23→22:01)
[2019-01-07] MEDS: LEVOTHYROXINE SODIUM 0.1 MG TABLET PO SCH (06:36)
[2019-01-07 06:41] LABS: ALBUMIN 2.6 g/dL (3.5-5.0); ALKALINE PHOSPHATASE 129 U/L (38-126); ANION GAP 5 (5-19); ASPARTATE AMINO TRANSFERASE 15 U/L (14-36); BILIRUBIN,DIRECT 0.3 mg/dL (0.0-0.4); BILIRUBIN,TOTAL 0.5 mg/dL (0.2-1.3); BLOOD UREA NITROGEN 30 mg/dL (7-20); CARBON DIOXIDE 27 mmol/L (22-30); CHLORIDE 103 mmol/L (98-107); GLUCOSE 111 mg/dL (75-110); POTASSIUM 3.8 mmol/L (3.6-5.0); TOTAL PROTEIN 5.5 g/dL (6.3-8.2)
[2019-01-07] MEDS: CALCIUM CARBONATE 500 MG TAB.CHEW PO SCH ×4 (08:07→22:02)
--- NOTE | 2019-01-07 08:20 | PDOC PROGRESS REPORT ---
Subjective Progress Note for:: 01/07/19 Reason For Visit: FECAL IMPACTON, PSBO ABD PAIN Patient states she feels a little better. No further bowel movements overnight. No nausea or vomiting. Patient has a long history of chronic constipation. Patient does state she ambulates despite severe arthritis. Physical Exam Vital Signs: Temp Pulse Resp BP Pulse Ox 97.7 F 72 15 137/77 H 97 01/07/19 03:22 01/07/19 07:00 01/07/19 03:22 01/07/19 03:22 01/07/19 03:22 Intake & Output 01/06/19 01/07/19 01/08/19 06:59 06:59 06:59 Intake Total 1478 832 Output Total 1750 0 Balance -272 832 Weight 60 kg 60.3 kg General appearance: PRESENT: no acute distress GI/Abdominal exam: PRESENT: other - Abdomen is soft not distended no peritoneal signs no rigidity. Results Laboratory Results: 01/07/19 05:56 01/07/19 05:56 01/06/19 01/06/19 01/07/19 08:16 08:16 05:56 WBC 15.6 H 18.9 H RBC 4.34 4.11 Hgb 13.1 12.4 Hct 39.9 37.7 MCV 92 92 MCH 30.1 30.2 MCHC 32.8 32.9 RDW 14.7 H 15.0 H Plt Count 375 339 Seg Neutrophils % Not Reportable 81.7 H Lymphocytes % Not Reportable 6.4 L Monocytes % Not Reportable 10.9 Eosinophils % Not Reportable 0.9 Basophils % Not Reportable 0.1 Absolute Neutrophils Not Reportable 15.4 H Absolute Lymphocytes Not Reportable 1.2 Absolute Monocytes Not Reportable 2.0 H Absolute Eosinophils Not Reportable 0.2 Absolute Basophils Not Reportable 0.0 Sodium 137.0 Potassium 3.6 Chloride 104 Carbon Dioxide 23 Anion Gap 10 BUN 27 H Creatinine 0.68 Est GFR ( Amer) > 60 Est GFR (Non-Af Amer) > 60 Glucose 120 H Calcium 9.1 Magnesium 1.8 Total Bilirubin 0.6 AST 19 Alkaline Phosphatase 156 H Total Protein 6.4 Albumin 3.1 L 01/07/19 05:56 WBC RBC Hgb Hct MCV MCH MCHC RDW Plt Count Seg Neutrophils % Lymphocytes % Monocytes % Eosinophils % Basophils % Absolute Neutrophils Absolute Lymphocytes Absolute Monocytes Absolute Eosinophils Absolute Basophils Sodium 134.9 L Potassium 3.8 Chloride 103 Carbon Dioxide 27 Anion Gap 5 BUN 30 H Creatinine 0.81 Est GFR ( Amer) > 60 Est GFR (Non-Af Amer) > 60 Glucose 111 H Calcium 9.0 Magnesium 1.9 Total Bilirubin 0.5 AST 15 Alkaline Phosphatase 129 H Total Protein 5.5 L Albumin 2.6 L Impressions: Chest X-Ray 01/01/19 13:15 IMPRESSION: 1. No acute abnormality of the lungs in AP projection. 2. There is a probable fracture deformity of the proximal right humerus with probable anterior dislocation of the shoulder joint. Consider dedicated shoulder radiographs to further evaluate. Abdomen/Pelvis CT 01/01/19 15:12 IMPRESSION: 1. Dilated fluid-filled loops of small bowel concerning for at least partial small bowel obstruction. Transition point is not identified. 2. Small amount of free fluid in the abdomen and pelvis. 3. Osseous findings as described. Shoulder X-Ray 01/01/19 18:51 IMPRESSION: Significantly abnormal right humeral head which is dislocated and fractured. Acute versus chronic. Severe osteoporosis. 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 Degenerative changes are present. No fracture is appreciated. Images are available in PACs for review. 3D images are available. Abdomen Ultrasound 01/06/19 00:00 IMPRESSION: Dilation of the CBD measuring 14 mm with questionable intraluminal stone. Dilation may be in part related to post cholecystectomy and senescent change although distal obstructing lesion is not entirely excluded. No intrahepatic ductal dilation. Recommend correlation with LFTs. ERCP or MRCP could be considered for further characterization. Assessment & Plan - Diagnosis (1) Constipation Qualifiers: Constipation type: unspecified constipation type Qualified Code(s): K59.00 - Constipation, unspecified Is this a current diagnosis for this admission?: Yes Plan: Impression: Recurrent constipation; chronic problem well-known to patient; improved slightly overnight. Abdominal film this morning shows some dilated loops of small bowel and gas in the colon. Previously seen right upper quadrant stool ball not appreciated Recommendations: 1. Ambulate patient 2. We will give her mag citrate today to facilitate any further stool evacuation 3. No evidence of intra-abdominal sepsis; no indication for surgical intervention at this time.
[2019-01-07] MEDS ORDERED: MAGNESIUM CITRATE 296 ML BOTTLE PO ONE (09:00)
[2019-01-07] MEDS: CALCIUM CARBONATE 500 MG TABLET PO SCH ×2 (09:45→17:06)
[2019-01-07] MEDS: LISINOPRIL 10 MG TABLET PO SCH (09:46)
[2019-01-07] MEDS: ATENOLOL 50 MG TABLET PO SCH (09:46)
[2019-01-07] MEDS: CHOLECALCIFEROL (D3) 1,000 UNIT (25 MCG) TABLET PO SCH (09:46)
[2019-01-07] MEDS: MULTIVITAMIN TABLET PO SCH (09:46)
[2019-01-07] MEDS: POLYETHYLENE GLYCOL 3350 POWDER 17 GM/1 PACKET PO SCH (09:48)
[2019-01-07] MEDS: FAMOTIDINE INJ/PF 20 MG/2 ML SDV IV SCH (09:48)
--- NOTE | 2019-01-07 09:48 | RADIOLOGY REPORT (SQ) ---
EXAM DESCRIPTION: KUB/ABDOMEN (SINGLE VIEW) COMPLETED DATE/TIME: 01/07/2019 8:17 am REASON FOR STUDY: partial bowel ob COMPARISON: CT abdomen pelvis 01/01/2019 Abdominal films 01/01/2019, 01/05/2019, 01/06/2019 NUMBER OF VIEWS: One view. TECHNIQUE: Supine radiographic image of the abdomen acquired. LIMITATIONS: None. FINDINGS: BOWEL GAS PATTERN: Small amount of stool in the ascending colon. Radiodense material in t he descending colon diverticulum unchanged. Persistent distended small bowel loops in the mid abdomen unchanged from 01/01/2019. CALCIFICATIONS: No suspicious calcifications. SOFT TISSUES: No gross mass or suggestion of organomegaly. HARDWARE: Anastomotic jami at the rectosigmoid. Clips right upper quadrant post cholecystectomy. BONES: Osteoporotic with L1 vertebra plana deformity and old left hip hardware OTHER: No other significant finding. IMPRESSION: Persistent dilated small bowel loops TECHNICAL DOCUMENTATION: JOB ID: [id number] [employer]- All Rights Reserved Reading location - IP/workstation name: [email or web address]
[2019-01-07] MEDS: ONDANSETRON HCL INJ/PF 4 MG/2 ML SDV IV PRN (10:03)
--- NOTE | 2019-01-07 10:11 | PDOC PROGRESS REPORT ---
Subjective Progress Note for:: 01/07/19 Subjective:: 88 year old female with a partial past medical history of hypertension, arthritis, coronary artery disease, hypertension and left hip fracture. She presents with 4 days of abdominal pain nausea vomiting of gastric content. Denying chest pain shortness of breath or palpitations admitting incomplete bowel movements. In the emergency room she is found to have fecal impaction, right shoulder fracture and dislocation and referred to the hospitalist for admission. Patient denies trauma or sudden onset to shoulder pain, is only tender when ambulating with her walker. She denies recent change of medication regiment or diet and is otherwise felt well 01/05/[id number]-vimi-old female with medical history of hypertension, carotid disease, hypertension, left hip fracture admitted with history of abdominal pain associated with nausea and vomitings. She still having the bilious vomiting's and patient is receiving any mass. KUB done this morning indicates persistent dilated small bowel seen in the left upper quadrant. Plan is to do the gallbladder ultrasound and surgical consult was requested, I personally spoke to Dr. Lyles. 01/06/2019-no acute events in the last 24 hours. Afebrile. He denies any nausea denies any vomitings. Patient having good bowel movements. KUB done this morning shows slightly decreased in size of the dilated small bowel loops. Plan is to continue the enema treatment. 01/07/2019-no acute events in the last 24 hours. Afebrile. Denies any nausea or vomiting's. KUB done this morning shows persistent dilated small bowels. Dr. Sahni following the patient. His recommendation is to use mag citrate and daily basis. Reason For Visit: FECAL IMPACTON, PSBO ABD PAIN Physical Exam Vital Signs: Temp Pulse Resp BP Pulse Ox 98.0 F 69 14 120/55 L 95 01/07/19 08:00 01/07/19 08:00 01/07/19 08:00 01/07/19 08:00 01/07/19 08:00 Intake & Output 01/06/19 01/07/19 01/08/19 06:59 06:59 06:59 Intake Total 1478 832 Output Total 1750 0 Balance -272 832 Weight 60 kg 60.3 kg General appearance: PRESENT: no acute distress Head exam: PRESENT: atraumatic Eye exam: PRESENT: PERRLA Mouth exam: PRESENT: neck supple Teeth exam: PRESENT: poor dentation Neck exam: ABSENT: carotid bruit, JVD, lymphadenopathy, thyromegaly Respiratory exam: PRESENT: decreased breath sounds Cardiovascular exam: PRESENT: RRR. ABSENT: diastolic murmur, rubs, systolic murmur GI/Abdominal exam: PRESENT: normal bowel sounds, soft. ABSENT: distended, guarding, mass, organolmegaly, rebound, tenderness Rectal exam: PRESENT: deferred Neurological exam: PRESENT: alert, awake, oriented to person, oriented to place, oriented to time, oriented to situation, CN II-XII grossly intact. ABSENT: motor sensory deficit Psychiatric exam: PRESENT: appropriate affect, normal mood. ABSENT: homicidal ideation, suicidal ideation Results Laboratory Results: 01/07/19 05:56 01/07/19 05:56 01/07/19 01/07/19 05:56 05:56 WBC 18.9 H RBC 4.11 Hgb 12.4 Hct 37.7 MCV 92 MCH 30.2 MCHC 32.9 RDW 15.0 H Plt Count 339 Seg Neutrophils % 81.7 H Lymphocytes % 6.4 L Monocytes % 10.9 Eosinophils % 0.9 Basophils % 0.1 Absolute Neutrophils 15.4 H Absolute Lymphocytes 1.2 Absolute Monocytes 2.0 H Absolute Eosinophils 0.2 Absolute Basophils 0.0 Sodium 134.9 L Potassium 3.8 Chloride 103 Carbon Dioxide 27 Anion Gap 5 BUN 30 H Creatinine 0.81 Est GFR ( Amer) > 60 Est GFR (Non-Af Amer) > 60 Glucose 111 H Calcium 9.0 Magnesium 1.9 Total Bilirubin 0.5 AST 15 Alkaline Phosphatase 129 H Total Protein 5.5 L Albumin 2.6 L Impressions: Chest X-Ray 01/01/19 13:15 IMPRESSION: 1. No acute abnormality of the lungs in AP projection. 2. There is a probable fracture deformity of the proximal right humerus with probable anterior dislocation of the shoulder joint. Consider dedicated shoulder radiographs to further evaluate. Abdomen/Pelvis CT 01/01/19 15:12 IMPRESSION: 1. Dilated fluid-filled loops of small bowel concerning for at least partial small bowel obstruction. Transition point is not identified. 2. Small amount of free fluid in the abdomen and pelvis. 3. Osseous findings as described. Shoulder X-Ray 01/01/19 18:51 IMPRESSION: Significantly abnormal right humeral head which is dislocated and fractured. Acute versus chronic. Severe osteoporosis. 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 Degenerative changes are present. No fracture is appreciated. Images are available in PACs for review. 3D images are available. Abdomen Ultrasound 01/06/19 00:00 IMPRESSION: Dilation of the CBD measuring 14 mm with questionable intraluminal stone. Dilation may be in part related to post cholecystectomy and senescent change although distal obstructing lesion is not entirely excluded. No intr ahepatic ductal dilation. Recommend correlation with LFTs. ERCP or MRCP could be considered for further characterization. KUB X-Ray 01/07/19 06:00 IMPRESSION: Persistent dilated small bowel loops Assessment and Plan - Diagnosis (1) Fecal impaction Is this a current diagnosis for this admission?: Yes Plan: Trial enemas, stool softeners and MiraLAX daily, discharge with bowel regiment if narcotics required 01/05/2019-patient admitted with the fecal impaction and no mention of fecal impaction in the KUB today. Patient is receiving any mass and stool softeners and MiraLAX. Patient is still complaining of nausea and throwing back bilious colored material. KUB done this morning shows persistent dilated small bowels in the left upper quadrant. Plan is to do the gallbladder ultrasound and surgical consult was requested for further recommendations. 01/06/[id number]-kpfc-old female admitted with fecal impaction she was started on a high volume anemia since yesterday. She is having a large bowel movements. KUB did done this morning indicates decrease in size of the dilated small bowel loops. Patient denies any nausea and vomitings. Plan is to continue the present management. 01/07/[id number]-tswx-old female admitted with fecal impaction and patient receiving high-volume anemia denies any nausea and vomiting's follow-up CT shows mild dilated bowels. Plan is to start on mag citrate and daily basis to the KUB sent daily basis. No evidence of sepsis despite a WBC count of 18,900. Fecal impaction most likely secondary to chronic opiate dependency. (2) Partial bowel obstruction Qualifiers: Intestinal obstruction type: other intestinal obstruction Qualified Code(s): K56.690 - Other partial intestinal obstruction Is this a current diagnosis for this admission?: Yes (3) Right humeral fracture Is this a current diagnosis for this admission?: No (4) CAD (coronary artery disease) Is this a current diagnosis for this admission?: No Plan: 01/07/2019-patient has history of coronary artery disease no complaints of chest pains during this hospital stay. (5) Hypothyroidism Is this a current diagnosis for this admission?: Yes Plan: Continue Synthroid 01/07/2019-patient has history of hypothyroidism plan is to continue Synthroid during this hospital stay. May be hypothyroidism contributing to her constipation. - Time Time Spent with patient: 25-34 minutes Medications reviewed and adjusted accordingly: Yes Anticipated discharge: Home
[2019-01-08] MEDS: HEPARIN SOD (PORCINE) 5,000 UNIT/ML 1 ML VIAL SUBCUT SCH ×3 (05:09→22:00)
[2019-01-08] MEDS: LEVOTHYROXINE SODIUM 0.1 MG TABLET PO SCH (05:10)
[2019-01-08 06:45] LABS: ABSOLUTE EOSINOPHILS # (AUTO) 0.3 10^3/uL (0.0-0.6); ABSOLUTE LYMPHOCYTES (AUTO) 1.3 10^3/uL (0.5-4.7); ABSOLUTE MONOCYTES (AUTO) 1.3 10^3/uL (0.1-1.4); ABSOLUTE NEUT (AUTO) 11.1 10^3/uL (1.7-8.2); BASOPHILS % (AUTO) 0.2 % (0-2); EOSINOPHILS % (AUTO) 1.8 % (0-6); HEMATOCRIT 33.7 % (36.0-47.0); HEMOGLOBIN 11.3 g/dL (12.0-15.5); LYMPHOCYTES % (AUTO) 9.4 % (13-45); MEAN CORPUSCULAR HEMOGLOBIN 30.6 pg (27.0-33.4); MEAN CORPUSCULAR HGB CONC 33.6 g/dL (32.0-36.0); MEAN CORPUSCULAR VOLUME 91 fl (80-97); MONOCYTES % (AUTO) 9.5 % (3-13); PLATELET COUNT 308 10^3/uL (150-450); RED CELL DISTRIBUTION WIDTH 14.8 % (11.5-14.0); SEGMENTED NEUTROPHILS % (AUTO) 79.1 % (42-78); TOTAL CELLS COUNTED % (AUTO) 100 %; WHITE BLOOD COUNT 14.1 10^3/uL (4.0-10.5)
[2019-01-08 07:01] LABS: ALBUMIN 2.3 g/dL (3.5-5.0); ALKALINE PHOSPHATASE 110 U/L (38-126); ASPARTATE AMINO TRANSFERASE 14 U/L (14-36); BILIRUBIN,DIRECT 0.3 mg/dL (0.0-0.4); BILIRUBIN,TOTAL 0.4 mg/dL (0.2-1.3); BLOOD UREA NITROGEN 32 mg/dL (7-20); CALCIUM 8.4 mg/dL (8.4-10.2); CARBON DIOXIDE 28 mmol/L (22-30); GLUCOSE 93 mg/dL (75-110); POTASSIUM 3.4 mmol/L (3.6-5.0); TOTAL PROTEIN 4.9 g/dL (6.3-8.2)
[2019-01-08 07:06] LABS: ANION GAP 5 (5-19); CHLORIDE 102 mmol/L (98-107)
--- NOTE | 2019-01-08 08:06 | PDOC PROGRESS REPORT ---
Subjective Progress Note for:: 01/08/19 Reason For Visit: FECAL IMPACTON, PSBO ABD PAIN Physical Exam Vital Signs: Temp Pulse Resp BP Pulse Ox 97.8 F 84 15 108/48 L 97 01/08/19 04:00 01/08/19 07:16 01/08/19 04:00 01/08/19 04:00 01/08/19 04:00 Intake & Output 01/07/19 01/08/19 01/09/19 06:59 06:59 06:59 Intake Total 832 812 Output Total 0 0 Balance 832 812 Weight 60.3 kg 59.7 kg General appearance: PRESENT: no acute distress Head exam: PRESENT: normocephalic Eye exam: PRESENT: EOMI Mouth exam: PRESENT: moist Neck exam: PRESENT: full ROM Respiratory exam: PRESENT: clear to auscultation delfina Cardiovascular exam: PRESENT: RRR Pulses: PRESENT: normal radial pulses GI/Abdominal exam: PRESENT: soft Rectal exam: PRESENT: deferred Musculoskeletal exam: PRESENT: full ROM Neurological exam: PRESENT: awake, oriented to person, oriented to place Psychiatric exam: PRESENT: appropriate affect Skin exam: PRESENT: dry Results Laboratory Results: 01/08/19 05:28 01/08/19 05:28 01/08/19 01/08/19 05:28 05:28 WBC 14.1 H RBC 3.70 L Hgb 11.3 L Hct 33.7 L MCV 91 MCH 30.6 MCHC 33.6 RDW 14.8 H Plt Count 308 Seg Neutrophils % 79.1 H Lymphocytes % 9.4 L Monocytes % 9.5 Eosinophils % 1.8 Basophils % 0.2 Absolute Neutrophils 11.1 H Absolute Lymphocytes 1.3 Absolute Monocytes 1.3 Absolute Eosinophils 0.3 Absolute Basophils 0.0 Sodium 134.7 L Potassium 3.4 L Chloride 102 Carbon Dioxide 28 Anion Gap 5 BUN 32 H Creatinine 0.69 Est GFR ( Amer) > 60 Est GFR (Non-Af Amer) > 60 Glucose 93 Calcium 8.4 Magnesium 1.9 Total Bilirubin 0.4 AST 14 Alkaline Phosphatase 110 Total Protein 4.9 L Albumin 2.3 L Impressions: Chest X-Ray 01/01/19 13:15 IMPRESSION: 1. No acute abnormality of the lungs in AP projection. 2. There is a probable fracture deformity of the proximal right humerus with probable anterior dislocation of the shoulder joint. Consider dedicated shoulder radiographs to further evaluate. Abdomen/Pelvis CT 01/01/19 15:12 IMPRESSION: 1. Dilated fluid-filled loops of small bowel concerning for at least partial small bowel obstruction. Transition point is not identified. 2. Small amount of free fluid in the abdomen and pelvis. 3. Osseous findings as described. Shoulder X-Ray 01/01/19 18:51 IMPRESSION: Significantly abnormal right humeral head which is dislocated and fractured. Acute versus chronic. Severe osteoporosis. 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 Degenerative changes are present. No fracture is appreciated. Images are available in PACs for review. 3D images are available. Abdomen Ultrasound 01/06/19 00:00 IMPRESSION: Dilation of the CBD measuring 14 mm with questionable intraluminal stone. Dilation may be in part related to post cholecystectomy and senescent change although distal obstructing lesion is not entirely excluded. No intrahepatic ductal dilation. Recommend correlation with LFTs. ERCP or MRCP could be considered for further characterization. KUB X-Ray 01/07/19 06:00 IMPRESSION: Persistent dilated small bowel loops Assessment & Plan - Plan Summary Plan Summary: pt now with multiple bm's had a chicken sandwich last pm for dinner abd soft does have some diarrhea recommend no surgical intervention please reconsult surgery as necessary.
[2019-01-08] MEDS: CALCIUM CARBONATE 500 MG TAB.CHEW PO SCH ×4 (08:33→22:00)
[2019-01-08] MEDS: POLYETHYLENE GLYCOL 3350 POWDER 17 GM/1 PACKET PO SCH (09:30)
[2019-01-08] MEDS: LISINOPRIL 10 MG TABLET PO SCH (10:14)
[2019-01-08] MEDS: CHOLECALCIFEROL (D3) 1,000 UNIT (25 MCG) TABLET PO SCH (10:19)
[2019-01-08] MEDS: CALCIUM CARBONATE 500 MG TABLET PO SCH ×2 (10:19→17:02)
[2019-01-08] MEDS: MULTIVITAMIN TABLET PO SCH (10:19)
--- NOTE | 2019-01-08 10:19 | PDOC PROGRESS REPORT ---
Subjective Progress Note for:: 01/08/19 Subjective:: 88 year old female with a partial past medical history of hypertension, arthritis, coronary artery disease, hypertension and left hip fracture. She presents with 4 days of abdominal pain nausea vomiting of gastric content. Denying chest pain shortness of breath or palpitations admitting incomplete bowel movements. In the emergency room she is found to have fecal impaction, right shoulder fracture and dislocation and referred to the hospitalist for admission. Patient denies trauma or sudden onset to shoulder pain, is only tender when ambulating with her walker. She denies recent change of medication regiment or diet and is otherwise felt well 01/05/[id number]-cwnb-old female with medical history of hypertension, carotid disease, hypertension, left hip fracture admitted with history of abdominal pain associated with nausea and vomitings. She still having the bilious vomiting's and patient is receiving any mass. KUB done this morning indicates persistent dilated small bowel seen in the left upper quadrant. Plan is to do the gallbladder ultrasound and surgical consult was requested, I personally spoke to Dr. Lyles. 01/06/2019-no acute events in the last 24 hours. Afebrile. He denies any nausea denies any vomitings. Patient having good bowel movements. KUB done this morning shows slightly decreased in size of the dilated small bowel loops. Plan is to continue the enema treatment. 01/07/2019-no acute events in the last 24 hours. Afebrile. Denies any nausea or vomiting's. KUB done this morning shows persistent dilated small bowels. Dr. Sahni following the patient. His recommendation is to use mag citrate and daily basis. 01/08/2019-no acute events in the last 24 hours. Except for diarrhea. Patient is concerned about loose stools she does not want to home with severe diarrhea wants to stay at least another day. Is to discontinue all her constipation medications. Other complaints. Reason For Visit: FECAL IMPACTON, PSBO ABD PAIN Physical Exam Vital Signs: Temp Pulse Resp BP Pulse Ox 98.7 F 92 18 102/47 L 96 01/08/19 07:33 01/08/19 07:33 01/08/19 07:33 01/08/19 07:33 01/08/19 07:33 Intake & Output 01/07/19 01/08/19 01/09/19 06:59 06:59 06:59 Intake Total 832 812 Output Total 0 0 Balance 832 812 Weight 60.3 kg 59.7 kg General appearance: PRESENT: no acute distress, cooperative Head exam: PRESENT: atraumatic Eye exam: PRESENT: PERRLA Mouth exam: PRESENT: neck supple Neck exam: ABSENT: carotid bruit, JVD, lymphadenopathy, thyromegaly Respiratory exam: PRESENT: clear to auscultation delfina. ABSENT: rales, rhonchi, wheezes Cardiovascular exam: PRESENT: RRR. ABSENT: diastolic murmur, rubs, systolic mur mur GI/Abdominal exam: PRESENT: normal bowel sounds, soft. ABSENT: distended, guarding, mass, organolmegaly, rebound, tenderness Rectal exam: PRESENT: deferred Extremities exam: PRESENT: full ROM. ABSENT: calf tenderness, clubbing, pedal edema Neurological exam: PRESENT: alert, awake, oriented to person, oriented to place, oriented to time, oriented to situation, CN II-XII grossly intact. ABSENT: motor sensory deficit Psychiatric exam: PRESENT: appropriate affect, normal mood. ABSENT: homicidal ideation, suicidal ideation Results Laboratory Results: 01/08/19 05:28 01/08/19 05:28 01/08/19 01/08/19 05:28 05:28 WBC 14.1 H RBC 3.70 L Hgb 11.3 L Hct 33.7 L MCV 91 MCH 30.6 MCHC 33.6 RDW 14.8 H Plt Count 308 Seg Neutrophils % 79.1 H Lymphocytes % 9.4 L Monocytes % 9.5 Eosinophils % 1.8 Basophils % 0.2 Absolute Neutrophils 11.1 H Absolute Lymphocytes 1.3 Absolute Monocytes 1.3 Absolute Eosinophils 0.3 Absolute Basophils 0.0 Sodium 134.7 L Potassium 3.4 L Chloride 102 Carbon Dioxide 28 Anion Gap 5 BUN 32 H Creatinine 0.69 Est GFR ( Amer) > 60 Est GFR (Non-Af Amer) > 60 Glucose 93 Calcium 8.4 Magnesium 1.9 Total Bilirubin 0.4 AST 14 Alkaline Phosphatase 110 Total Protein 4.9 L Albumin 2.3 L Impressions: Chest X-Ray 01/01/19 13:15 IMPRESSION: 1. No acute abnormality of the lungs in AP projection. 2. There is a probable fracture deformity of the proximal right humerus with probable anterior dislocation of the shoulder joint. Consider dedicated shoulder radiographs to further evaluate. Abdomen/Pelvis CT 01/01/19 15:12 IMPRESSION: 1. Dilated fluid-filled loops of small bowel concerning for at least partial small bowel obstruction. Transition point is not identified. 2. Small amount of free fluid in the abdomen and pelvis. 3. Osseous findings as described. Shoulder X-Ray 01/01/19 18:51 IMPRESSION: Significantly abnormal right humeral head which is dislocated and fractured. Acute versus chronic. Severe osteoporosis. 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 Degenerative changes are present. No fracture is appreciated. Images are available in PACs for review. 3D images are available. Abdomen Ultrasound 01/06/19 00:00 IMPRESSION: Dilation of the CBD measuring 14 mm with questionable intraluminal stone. Dilation may be in part related to post cholecystectomy and senescent change although distal obstructing lesion is not entirely excluded. No intrahepatic ductal dilation. Recommend correlation with LFTs. ERCP or MRCP could be considered for further characterization. KUB X-Ray 01/07/19 06:00 IMPRESSION: Persistent dilated small bowel loops Assessment and Plan - Diagnosis (1) Fecal impaction Is this a current diagnosis for this admission?: Yes Plan: Trial enemas, stool softeners and MiraLAX daily, discharge with bowel regiment if narcotics required 01/05/2019-patient admitted with the fecal impaction and no mention of fecal impaction in the KUB today. Patient is receiving any mass and stool softeners and MiraLAX. Patient is still complaining of nausea and throwing back bilious colored material. KUB done this morning shows persistent dilated small bowels in the left upper quadrant. Plan is to do the gallbladder ultrasound and surgical consult was requested for further recommendations. 01/06/[id number]-yheb-old female admitted with fecal impaction she was started on a high volume anemia since yesterday. She is having a large bowel movements. KUB did done this morning indicates decrease in size of the dilated small bowel l oops. Patient denies any nausea and vomitings. Plan is to continue the present management. 01/07/[id number]-xbtl-old female admitted with fecal impaction and patient receiving high-volume anemia denies any nausea and vomiting's follow-up CT shows mild dilated bowels. Plan is to start on mag citrate and daily basis to the KUB sent daily basis. No evidence of sepsis despite a WBC count of 18,900. Fecal impaction most likely secondary to chronic opiate dependency. 01/08/2019-patient admitted with fecal impaction leading to partial small bowel obstruction now the constipation is resolved patient is complaining of multiple loose stools from last night. Nausea and vomiting is resolved. Severe constipation/fecal impaction most likely secondary to opiate dependency. (2) Partial bowel obstruction Qualifiers: Intestinal obstruction type: other intestinal obstruction Qualified Code(s): K56.690 - Other partial intestinal obstruction Is this a current diagnosis for this admission?: Yes Plan: Improving after multiple enemas. Lactulose enema finally had results. Continue daily miralax, colace, and lactulose po prn Secondary to fecal impaction, opiate use for hip and decreased activity Nursing report she did vomit after cipro last night Reports feeling much better today. 01/05/2019-patient admitted with partial bowel obstruction KUB this morning indicates persistent dilated small bowel loops in the left upper quadrant surgical consult was requested. 01/06/2019-patient admitted with partial bowel obstruction most likely secondary to severe constipation patient is receiving high-volume enemas. KUB shows slight improvement this morning. Patient denies any nausea and vomitings able to tolerate the morning breakfast. 01/08/2019-patient admitted with small partial bowel obstruction which was resolved. She able to tolerate the diet very well she does have the loose stools at times last night. Surgery signed off on her. 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 Ortho consult requested. 01/06/2019-patient has a chronic subluxation of the right humeral head patient denies any pains at all today. Plan is to continue the conservative management. 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 Patient denies any complaints. Patient is advised to follow-up with Ortho as an outpatient. (4) CAD (coronary artery disease) Is this a current diagnosis for this admission?: No (5) Hypothyroidism Is this a current diagnosis for this admission?: Yes - Time Time Spent with patient: 25-34 minutes Medications reviewed and adjusted accordingly: Yes Anticipated discharge: Home
[2019-01-08] MEDS: FAMOTIDINE INJ/PF 20 MG/2 ML SDV IV SCH (10:20)
[2019-01-08] MEDS: ATENOLOL 50 MG TABLET PO SCH (10:20)
[2019-01-08] MEDS: ACETAMINOPHEN 325 MG TABLET PO PRN (16:04)
[2019-01-09] MEDS: LEVOTHYROXINE SODIUM 0.1 MG TABLET PO SCH (06:16)
[2019-01-09] MEDS: HEPARIN SOD (PORCINE) 5,000 UNIT/ML 1 ML VIAL SUBCUT SCH ×3 (06:17→22:38)
[2019-01-09] MEDS: CALCIUM CARBONATE 500 MG TAB.CHEW PO SCH ×4 (08:43→22:38)
[2019-01-09] MEDS: LISINOPRIL 10 MG TABLET PO SCH (10:18)
[2019-01-09] MEDS: ATENOLOL 50 MG TABLET PO SCH (10:18)
[2019-01-09] MEDS: CHOLECALCIFEROL (D3) 1,000 UNIT (25 MCG) TABLET PO SCH (10:18)
[2019-01-09] MEDS: MULTIVITAMIN TABLET PO SCH (10:19)
[2019-01-09] MEDS: CALCIUM CARBONATE 500 MG TABLET PO SCH ×2 (10:19→17:14)
[2019-01-09] MEDS: FAMOTIDINE INJ/PF 20 MG/2 ML SDV IV SCH (10:19)
[2019-01-09] MEDS: ACETAMINOPHEN 325 MG TABLET PO PRN ×2 (10:24→14:32)
--- NOTE | 2019-01-09 11:59 | PDOC PROGRESS REPORT ---
Subjective Progress Note for:: 01/09/19 Subjective:: 88 year old female with a partial past medical history of hypertension, arthritis, coronary artery disease, hypertension and left hip fracture. She presents with 4 days of abdominal pain nausea vomiting of gastric content. Denying chest pain shortness of breath or palpitations admitting incomplete bowel movements. In the emergency room she is found to have fecal impaction, right shoulder fracture and dislocation and referred to the hospitalist for admission. Patient denies trauma or sudden onset to shoulder pain, is only tender when ambulating with her walker. She denies recent change of medication regiment or diet and is otherwise felt well 01/05/[id number]-vsqc-old female with medical history of hypertension, carotid disease, hypertension, left hip fracture admitted with history of abdominal pain associated with nausea and vomitings. She still having the bilious vomiting's and patient is receiving any mass. KUB done this morning indicates persistent dilated small bowel seen in the left upper quadrant. Plan is to do the gallbladder ultrasound and surgical consult was requested, I personally spoke to Dr. Lyles. 01/06/2019-no acute events in the last 24 hours. Afebrile. He denies any nausea denies any vomitings. Patient having good bowel movements. KUB done this morning shows slightly decreased in size of the dilated small bowel loops. Plan is to continue the enema treatment. 01/07/2019-no acute events in the last 24 hours. Afebrile. Denies any nausea or vomiting's. KUB done this morning shows persistent dilated small bowels. Dr. Sahni following the patient. His recommendation is to use mag citrate and daily basis. 01/08/2019-no acute events in the last 24 hours. Except for diarrhea. Patient is concerned about loose stools she does not want to home with severe diarrhea wants to stay at least another day. Is to discontinue all her constipation medications. Other complaints. 01/09/2019-no acute events in the last 24 hours. Patient is still complaining of loose stools. Patient prefers to stay another day. Reason For Visit: FECAL IMPACTON, PSBO ABD PAIN Physical Exam Vital Signs: Temp Pulse Resp BP Pulse Ox 98.8 F 69 18 159/81 H 97 01/09/19 08:01 01/09/19 08:01 01/09/19 08:01 01/09/19 08:01 01/09/19 08:01 Intake & Output 01/08/19 01/09/19 01/10/19 06:59 06:59 06:59 Intake Total 812 898 Output Total 0 Balance 812 898 Weight 59.7 kg 62 kg General appearance: PRESENT: no acute distress Head exam: PRESENT: atraumatic Eye exam: PRESENT: PERRLA Mouth exam: PRESENT: moist, tongue midline Teeth exam: PRESENT: poor dentation Neck exam: ABSENT: carotid bruit, JVD, lymphadenopathy, thyromegaly Respiratory exam: PRESENT: clear to auscultation delfina. ABSENT: rales, rhonchi, wheezes GI/Abdominal exam: PRESENT: ascites Rectal exam: PRESENT: deferred Neurological exam: PRESENT: alert, awake, oriented to person, oriented to place, oriented to time, oriented to situation, CN II-XII grossly intact. ABSENT: motor sensory deficit Psychiatric exam: PRESENT: appropriate affect, normal mood. ABSENT: homicidal ideation, suicidal ideation Results Laboratory Results: 01/08/19 05:28 01/08/19 05:28 Impressions: Chest X-Ray 01/01/19 13:15 IMPRESSION: 1. No acute abnormality of the lungs in AP projection. 2. There is a probable fracture deformity of the proximal right humerus with probable anterior dislocation of the shoulder joint. Consider dedicated shoulder radiographs to further evaluate. Abdomen/Pelvis CT 01/01/19 15:12 IMPRESSION: 1. Dilated fluid-filled loops of small bowel concerning for at l east partial small bowel obstruction. Transition point is not identified. 2. Small amount of free fluid in the abdomen and pelvis. 3. Osseous findings as described. Shoulder X-Ray 01/01/19 18:51 IMPRESSION: Significantly abnormal right humeral head which is dislocated and fractured. Acute versus chronic. Severe osteoporosis. 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 Degenerative changes are present. No fracture is appreciated. Images are available in PACs for review. 3D images are available. Abdomen Ultrasound 01/06/19 00:00 IMPRESSION: Dilation of the CBD measuring 14 mm with questionable intraluminal stone. Dilation may be in part related to post cholecystectomy and senescent change although distal obstructing lesion is not entirely excluded. No intrahepatic ductal dilation. Recommend correlation with LFTs. ERCP or MRCP could be considered for further characterization. KUB X-Ray 01/07/19 06:00 IMPRESSION: Persistent dilated small bowel loops Assessment and Plan - Diagnosis (1) Fecal impaction Is this a current diagnosis for this admission?: Yes Plan: Trial enemas, stool softeners and MiraLAX daily, discharge with bowel regiment if narcotics required 01/05/2019-patient admitted with the fecal impaction and no mention of fecal impaction in the KUB today. Patient is receiving any mass and stool softeners and MiraLAX. Patient is still complaining of nausea and throwing back bilious colored material. KUB done this morning shows persistent dilated small bowels in the left upper quadrant. Plan is to do the gallbladder ultrasound and surgical consult was requested for further recommendations. 01/06/[id number]-ddek-old female admitted with fecal impaction she was started on a high volume anemia since yesterday. She is having a large bowel movements. KUB did done this morning indicates decrease in size of the dilated small bowel loops. Patient denies any nausea and vomitings. Plan is to continue the present management. 01/07/[id number]-zuiz-old female admitted with fecal impaction and patient receiving high-volume anemia denies any nausea and vomiting's follow-up CT shows mild dilated bowels. Plan is to start on mag citrate and daily basis to the KUB sent daily basis. No evidence of sepsis despite a WBC count of 18,900. Fecal impa ction most likely secondary to chronic opiate dependency. 01/08/2019-patient admitted with fecal impaction leading to partial small bowel obstruction now the constipation is resolved patient is complaining of multiple loose stools from last night. Nausea and vomiting is resolved. Severe constipation/fecal impaction most likely secondary to opiate dependency. 01/09/2019-patient admitted with severe constipation with fecal impaction those issues are resolved now she is having the loose stools from last night. All the constipation medications are on hold. (2) Partial bowel obstruction Qualifiers: Intestinal obstruction type: other intestinal obstruction Qualified Code(s): K56.690 - Other partial intestinal obstruction Is this a current diagnosis for this admission?: Yes Plan: Improving after multiple enemas. Lactulose enema finally had results. Continue daily miralax, colace, and lactulose po prn Secondary to fecal impaction, opiate use for hip and decreased activity Nursing report she did vomit after cipro last night Reports feeling much better today. 01/05/2019-patient admitted with partial bowel obstruction KUB this morning indicates persistent dilated small bowel loops in the left upper quadrant surgical consult was requested. 01/06/2019-patient admitted with partial bowel obstruction most likely secondary to severe constipation patient is receiving high-volume enemas. KUB shows slight improvement this morning. Patient denies any nausea and vomitings able to tolerate the morning breakfast. 01/08/2019-patient admitted with small partial bowel obstruction which was resolved. She able to tolerate the diet very well she does have the loose stools at times last night. Surgery signed off 01/09/2019-patient with partial bowel obstruction most likely secondary to fecal impaction which was resolved surgery signed off. (3) Right humeral fracture Is this a current diagnosis for this admission?: No (4) CAD (coronary artery disease) Is this a current diagnosis for this admission?: No (5) Hypothyroidism Is this a current diagnosis for this admission?: Yes - Time Time Spent with patient: 15-24 minutes Medications reviewed and adjusted accordingly: Yes Anticipated discharge: Home
[2019-01-10] MEDS: LEVOTHYROXINE SODIUM 0.1 MG TABLET PO SCH (05:57)
[2019-01-10] MEDS: HEPARIN SOD (PORCINE) 5,000 UNIT/ML 1 ML VIAL SUBCUT SCH (05:57)
[2019-01-10] MEDS: CALCIUM CARBONATE 500 MG TAB.CHEW PO SCH ×2 (07:28→12:21)
[2019-01-10] MEDS: CHOLECALCIFEROL (D3) 1,000 UNIT (25 MCG) TABLET PO SCH (10:17)
[2019-01-10] MEDS: MULTIVITAMIN TABLET PO SCH (10:17)
[2019-01-10] MEDS: ATENOLOL 50 MG TABLET PO SCH (10:17)
[2019-01-10] MEDS: LISINOPRIL 10 MG TABLET PO SCH (10:17)
[2019-01-10] MEDS: CALCIUM CARBONATE 500 MG TABLET PO SCH (10:17)
[2019-01-10] MEDS: FAMOTIDINE INJ/PF 20 MG/2 ML SDV IV SCH (10:20)
--- NOTE | 2019-01-10 12:11 | PDOC DISCHARGE SUMMARY ---
General - Admit/Disc Date/PCP Admission Date/Primary Care Provider: 01/01/19 20:35 Discharge Date: 01/10/19 - Discharge Diagnosis (1) Fecal impaction Is this a current diagnosis for this admission?: Yes Summary: Trial enemas, stool softeners and MiraLAX daily, discharge with bowel regiment if narcotics required 01/05/2019-patient admitted with the fecal impaction and no mention of fecal impaction in the KUB today. Patient is receiving any mass and stool softeners and MiraLAX. Patient is still complaining of nausea and throwing back bilious colored material. KUB done this morning shows persistent dilated small bowels in the left upper quadrant. Plan is to do the gallbladder ultrasound and surgical consult was requested for further recommendations. 01/06/[id number]-ngnu-old female admitted with fecal impaction she was started on a high volume anemia since yesterday. She is having a large bowel movements. KUB did done this morning indicates decrease in size of the dilated small bowel loops. Patient denies any nausea and vomitings. Plan is to continue the present management. 01/07/[id number]-upge-old female admitted with fecal impaction and patient receiving high-volume anemia denies any nausea and vomiting's follow-up CT shows mild dilated bowels. Plan is to start on mag citrate and daily basis to the KUB sent daily basis. No evidence of sepsis despite a WBC count of 18,900. Fecal impaction most likely secondary to chronic opiate dependency. 01/08/2019-patient admitted with fecal impaction leading to partial small bowel obstruction now the constipation is resolved patient is complaining of multiple loose stools from last night. Nausea and vomiting is resolved. Severe constipation/fecal impaction most likely secondary to opiate dependency. 01/09/2019-patient admitted with severe constipation with fecal impaction those issues are resolved now she is having the loose stools from last night. All the constipation medications are on hold. 01/10/2019-patient admitted with constipation associated fecal impaction with any mass and with mag citrate the problem is resolved. (2) Partial bowel obstruction Is this a current diagnosis for this admission?: Yes Summary: Improving after multiple enemas. Lactulose enema finally had results. Continue daily miralax, colace, and lactulose po prn Secondary to fecal impaction, opiate use for hip and decreased activity Nursing report she did vomit after cipro last night Reports feeling much better today. 01/05/2019-patient admitted with partial bowel obstruction KUB this morning indicates persistent dilated small bowel loops in the left upper quadrant surgical consult was requested. 01/06/2019-patient admitted with partial bowel obstruction most likely secondary to severe constipation patient is receiving high-volume enemas. KUB shows slight improvement this morning. Patient denies any nausea and vomitings able to tolerate the morning breakfast. 01/08/2019-patient admitted with small partial bowel obstruction which was resolved. She able to tolerate the diet very well she does have the loose stools at times last night. Surgery signed off 01/09/2019-patient with partial bowel obstruction most likely secondary to fecal impaction which was resolved surgery signed off. 01/10/2019-patient admitted with partial small bowel obstruction leading to abdominal pain due to fecal impaction symptoms are resolved. Patient able to tolerate the regular diet and she is having regular bowel movements. (3) Right humeral fracture Is this a current diagnosis for this admission?: No (4) CAD (coronary artery disease) Is this a current diagnosis for this admission?: No (5) Hypothyroidism Is this a current diagnosis for this admission?: Yes - Additional Information Resuscitation Status: Full Code Discharge Diet: Cardiac Discharge Activity: Activity As Tolerated Home Medications: Atenolol [Tenormin] 25 mg PO DAILY 07/18/18 Levothyroxine Sodium [Synthroid 0.1 mg Tablet] 0.1 mg PO Q6AM 07/18/18 Hydrocodone Bit/Acetaminophen [Hydrocodon-Acetaminophn 10-325] 1 each PO Q6HP PRN 01/01/19 Calcium Carbonate [Calcium] 600 mg PO BID 01/02/19 Cholecalciferol (Vitamin D3) [Vitamin D3 1000 Unit Tablet] 1,000 unit PO DAILY 01/02/19 Multivitamin [Tab-A-Sherrie (Multiple Vitamin) Tablet] 1 tab PO DAILY 01/02/19 Turmeric/Turmeric Root Extract [Turmeric 500 mg Capsule] 1 each PO DAILY 01/02/19 Lisinopril [Prinivil 10 mg Tablet] 10 mg PO DAILY tablet 01/10/19 Metoprolol Tartrate [Lopressor Inj/Pf 5 mg/5 ml Sdv] 2.5 mg IV Q6HP PRN vial 01/10/19 History of Present Illness History of Present Illness: SG OSHEA is a 88 year old female 88 year old female with a partial past medical history of hypertension, arthritis, coronary artery disease, hypertension and left hip fracture. She presents with 4 days of abdominal pain nausea vomiting of gastric content. Denying chest pain shortness of breath or palpitations admitting incomplete bowel movements. In the emergency room she is found to have fecal impaction, right shoulder fracture and dislocation and referred to the hospitalist for admission. Patient denies trauma or sudden onset to shoulder pain, is only tender when ambulating with her walker. She denies recent change of medication regiment or diet and is otherwise felt well Hospital Course Hospital Course: 88 year old female with a partial past medical history of hypertension, arthritis, coronary artery disease, hypertension and left hip fracture. She pr esents with 4 days of abdominal pain nausea vomiting of gastric content. Denying chest pain shortness of breath or palpitations admitting incomplete bowel movements. In the emergency room she is found to have fecal impaction, right shoulder fracture and dislocation and referred to the hospitalist for admission. Patient denies trauma or sudden onset to shoulder pain, is only tender when ambulating with her walker. She denies recent change of medication regiment or diet and is otherwise felt well 01/05/[id number]-baiw-old female with medical history of hypertension, carotid disease, hypertension, left hip fracture admitted with history of abdominal pain associated with nausea and vomitings. She still having the bilious vomiting's and patient is receiving any mass. KUB done this morning indicates persistent dilated small bowel seen in the left upper quadrant. Plan is to do the gallbladder ultrasound and surgical consult was requested, I personally spoke to Dr. Lyles. 01/06/2019-no acute events in the last 24 hours. Afebrile. He denies any nausea denies any vomitings. Patient having good bowel movements. KUB done this morning shows slightly decreased in size of the dilated small bowel loops. Plan is to continue the enema treatment. 01/07/2019-no acute events in the last 24 hours. Afebrile. Denies any nausea or vomiting's. KUB done this morning shows persistent dilated small bowels. Dr. Sahni following the patient. His recommendation is to use mag citrate and daily basis. 01/08/2019-no acute events in the last 24 hours. Except for diarrhea. Patient is concerned about loose stools she does not want to home with severe diarrhea wants to stay at least another day. Is to discontinue all her constipation medications. Other complaints. 01/09/2019-no acute events in the last 24 hours. Patient is still complaining of loose stools. Patient prefers to stay another day. 01/10/[id number]-wsgk-old female admitted with fecal impaction leading to small bowel obstruction partial pulse small bowel obstruction which was resolved. Patient received several doses of any mass and mag citrate. Follow-up KUB is shows resolution of the fecal impaction. No complaints today patient is expressing desire to go home. Physical Exam Vital Signs: Temp Pulse Resp BP Pulse Ox 97.8 F 67 19 187/87 H 97 01/10/19 08:13 01/10/19 08:13 01/10/19 08:13 01/10/19 08:13 01/10/19 08:13 Intake & Output 01/09/19 01/10/19 01/11/19 06:59 06:59 06:59 Intake Total 898 420 Balance 898 420 Weight 62 kg 61.2 kg General appearance: PRESENT: no acute distress Head exam: PRESENT: atraumatic Eye exam: PRESENT: PERRLA Mouth exam: PRESENT: dry mucosa Teeth exam: PRESENT: poor dentation Neck exam: ABSENT: carotid bruit, JVD, lymphadenopathy, thyromegaly Respiratory exam: PRESENT: clear to auscultation delfina. ABSENT: rales, rhonchi, wheezes Cardiovascular exam: PRESENT: RRR. ABSENT: diastolic murmur, rubs, systolic murmur GI/Abdominal exam: PRESENT: normal bowel sounds, soft. ABSENT: distended, guarding, mass, organolmegaly, rebound, tenderness Rectal exam: PRESENT: deferred Extremities exam: PRESENT: full ROM. ABSENT: calf tenderness, clubbing, pedal edema Neurological exam: PRESENT: alert, awake, oriented to person, oriented to place, oriented to time, oriented to situation, CN II-XII grossly intact. ABSENT: motor sensory deficit Psychiatric exam: PRESENT: appropriate affect, normal mood. ABSENT: homicidal ideation, suicidal ideation Results Laboratory Results: 01/08/19 05:28 01/08/19 05:28 Impressions: Chest X-Ray 01/01/19 13:15 IMPRESSION: 1. No acute abnormality of the lungs in AP projection. 2. There is a probable fracture deformity of the proximal right humerus with p robable anterior dislocation of the shoulder joint. Consider dedicated shoulder radiographs to further evaluate. Abdomen/Pelvis CT 01/01/19 15:12 IMPRESSION: 1. Dilated fluid-filled loops of small bowel concerning for at least partial small bowel obstruction. Transition point is not identified. 2. Small amount of free fluid in the abdomen and pelvis. 3. Osseous findings as described. Shoulder X-Ray 01/01/19 18:51 IMPRESSION: Significantly abnormal right humeral head which is dislocated and fractured. Acute versus chronic. Severe osteoporosis. 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 Degenerative changes are present. No fracture is appreciated. Images are available in PACs for review. 3D images are available. Abdomen Ultrasound 01/06/19 00:00 IMPRESSION: Dilation of the CBD measuring 14 mm with questionable intraluminal stone. Dilation may be in part related to post cholecystectomy and senescent change although distal obstructing lesion is not entirely excluded. No intrahepatic ductal dilation. Recommend correlation with LFTs. ERCP or MRCP could be considered for further characterization. KUB X-Ray 01/07/19 06:00 IMPRESSION: Persistent dilated small bowel loops Qualifiers - * PATIENT BEING DISCHARGED WITH ANY OF THE FOLLOWING DIAGNOSIS: No VTE patient discharged on overlapping Therapy?: No Acute Heart Failure - Is this a Heart Failure Patient?: No
[2019-01-10 13:13] VITALS: BP 145/59
== END 2019-01-10 13:44 | disposition home health service (06) | DRG 392 ==
LOC: ER 12:10 → EH 20:35 → 5 22:30
PROVIDERS: ADMIT Internal Medicine; ATTEND Internal Medicine
DX: K59.03 Drug induced constipation (principal); F11.20 Opioid dependence, uncomplicated; E87.1 Hypo-osmolality and hyponatremia; M24.411 Recurrent dislocation, right shoulder; I25.10 Atherosclerotic heart disease of native coronary artery without angina pectoris; E03.9 Hypothyroidism, unspecified; I10 Essential (primary) hypertension; M19.90 Unspecified osteoarthritis, unspecified site; E78.5 Hyperlipidemia, unspecified; Z88.1 Allergy status to other antibiotic agents; Z79.890 Hormone replacement therapy; Z87.81 Personal history of (healed) traumatic fracture
CPT/HCPCS: 36415; 71046; 74018; 74177; 76705; 80048; 80053; 81001; 83690; 83735; 84100; 85025; 93005; 93010; 96374; 96375; 99285; J0360; J0780; J1644; J2405; J2765; J3010; J3490; J7030; S0028

== ENCOUNTER 2019-02-13 07:19 | Inpatient (IN) | payer MEDICARE, BC ==
[2019-02-13 08:20] LABS: ABSOLUTE LYMPHOCYTES (AUTO) 1.1 10^3/uL (0.5-4.7); ABSOLUTE MONOCYTES (AUTO) 0.8 10^3/uL (0.1-1.4); ABSOLUTE NEUT (AUTO) 4.9 10^3/uL (1.7-8.2); BASOPHILS % (AUTO) 0.2 % (0-2); EOSINOPHILS % (AUTO) 0.3 % (0-6); HEMATOCRIT 39.5 % (36.0-47.0); HEMOGLOBIN 13.2 g/dL (12.0-15.5); LYMPHOCYTES % (AUTO) 15.9 % (13-45); MEAN CORPUSCULAR HEMOGLOBIN 31.1 pg (27.0-33.4); MEAN CORPUSCULAR HGB CONC 33.5 g/dL (32.0-36.0); MEAN CORPUSCULAR VOLUME 93 fl (80-97); MONOCYTES % (AUTO) 11.1 % (3-13); PLATELET COUNT 315 10^3/uL (150-450); RED BLOOD COUNT 4.26 10^6/uL (3.72-5.28); RED CELL DISTRIBUTION WIDTH 14.8 % (11.5-14.0); SEGMENTED NEUTROPHILS % (AUTO) 72.5 % (42-78); TOTAL CELLS COUNTED % (AUTO) 100 %; WHITE BLOOD COUNT 6.8 10^3/uL (4.0-10.5)
[2019-02-13] MEDS ORDERED: NORMAL SALINE 1000 ML 1,000 ML IV ONE (08:31)
[2019-02-13 08:32] LABS: ALKALINE PHOSPHATASE 164 U/L (38-126); ANION GAP 9 (5-19); ASPARTATE AMINO TRANSFERASE 23 U/L (14-36); BILIRUBIN,DIRECT 0.1 mg/dL (0.0-0.4); BILIRUBIN,TOTAL 0.9 mg/dL (0.2-1.3); BLOOD UREA NITROGEN 14 mg/dL (7-20); CALCIUM 9.9 mg/dL (8.4-10.2); CARBON DIOXIDE 30 mmol/L (22-30); CHLORIDE 94 mmol/L (98-107); GLUCOSE 98 mg/dL (75-110); POTASSIUM 4.2 mmol/L (3.6-5.0); TOTAL PROTEIN 7.4 g/dL (6.3-8.2)
--- NOTE | 2019-02-13 09:32 | RADIOLOGY REPORT (SQ) ---
EXAM DESCRIPTION: ACUTE ABDOMEN SERIES COMPLETED DATE/TIME: 02/13/2019 9:13 am REASON FOR STUDY: Abdominal pain, nausea vomiting, constipation COMPARISON: 01/07/2019 KUB. NUMBER OF VIEWS: Three views. TECHNIQUE: Frontal chest, supine abdomen and upright/decubitus abdomen radiographic images acquired. LIMITATIONS: None. FINDINGS: CHEST: Metallic foreign body over the upper mediastinum. Lungs clear. FREE AIR: None. No abnormal gas collections. BOWEL GAS PATTERN: Gaseous distention with scattered air-fluid levels throughout. At least some of t his looks like small bowel. Degree of gaseous distention is probably improved compared to prior. CALCIFICATIONS: Prominent calcification in the right abdomen. Possibly within gallbladder. HARDWARE: None in the abdomen. SOFT TISSUES: Normal. BONES: Osteopenic. OTHER: No other significant finding. IMPRESSION: Persistent gaseous distention with scattered air-fluid levels. Obstruction not excluded , but overall appearance looks slightly improved. TECHNICAL DOCUMENTATION: JOB ID: [id number] [employer]- All Rights Reserved Reading location - IP/workstation name: [email or web address]
--- NOTE | 2019-02-13 09:38 | ER Document Report ---
Entered by DELIA QUINTANA SCRIBE 02/13/19 0822 Acting as scribe for:LUIS ALBERTO ARREOLA MD ED GI/ - General Chief Complaint: Abdominal Pain Stated Complaint: ABDOMINAL PAIN Time Seen by Provider: 02/13/19 08:15 Primary Care Provider: MADDIE SORIANO PA-C [Primary Care Provider] - Follow up as needed Mode of Arrival: Ambulatory Information source: Patient Notes: Patient is an 88-year-old female who presents to the emergency department today with complaints of diffuse abdominal pain with associated constipation. Patient states she last passed gas this morning prior to arrival, but did not pass any stool. Patient states she did have vomiting this morning and it was brown in color. Patient states her abdominal pain comes in waves. TRAVEL OUTSIDE OF THE [place] IN LAST 30 DAYS: No - Related Data Allergies/Adverse Reactions: amoxicillin [From Augmentin] Allergy (Verified 07/18/18 11:42) clavulanic acid [From Augmentin] Allergy (Verified 07/18/18 11:42) Past Medical History - General Information source: Patient - Social History Smoking Status: Never Smoker Cigarette use (# per day): No Frequency of alcohol use: None Drug Abuse: None Lives with: Family Family History: Reviewed & Not Pertinent Patient has suicidal ideation: No Patient has homicidal ideation: No - Past Medical History Cardiac Medical History: Reports: Hx Coronary Artery Disease, Hx Hypercholesterolemia, Hx Hypertension GI Medical History: Reports: Hx Diverticulitis Musculoskeletal Medical History: Reports Hx Arthritis Past Surgical History: Reports: Hx Appendectomy, Hx Cholecystectomy - Bowel resection related to diverticulitis, tonsillectomy, Hx Herniorrhaphy, Hx Hysterectomy, Hx Orthopedic Surgery Review of Systems - Review of Systems Constitutional: No symptoms reported EENT: No symptoms reported Cardiovascular: No symptoms reported Respiratory: No symptoms reported Gastrointestinal: See HPI, Abdominal pain, Vomiting, Constipation Genitourinary: No symptoms reported Female Genitourinary: No symptoms reported Musculoskeletal: No symptoms reported Skin: No symptoms reported Hematologic/Lymphatic: No symptoms reported Neurological/Psychological: No symptoms reported -: Yes All other systems reviewed and negative Physical Exam - Vital signs Vitals: Temp Pulse Resp BP Pulse Ox 98.2 F 71 18 128/69 H 97 02/13/19 07:31 02/13/19 07:31 02/13/19 07:31 02/13/19 07:31 02/13/19 07:31 - Notes Notes: Physical Exam: General: Alert, appears age appropriate. HEENT: Normocephalic. Atraumatic. PERRL. Extraocular movements intact. Oropharynx clear. Neck: Supple. Non-tender. Respiratory: No respiratory distress. Clear and equal breath sounds bilaterally. Cardiovascular: Regular rate and rhythm. Abdominal: Mild diffuse abdominal tenderness with palpation. No distension. Normal Bowel Sounds. Back: No gross abnormalities. Extremities: Moves all four extremities. Upper extremities: Normal inspection. Normal ROM. Lower extremities: Normal inspection. No edema. Normal ROM. Neurological: Normal cognition. AAOx4. Normal speech. Psychological: Normal affect. Normal Mood. Skin: Warm. Dry. Normal color. Course - Vital Signs Vital signs: Temp Pulse Resp BP Pulse Ox 98.2 F 71 18 128/69 H 97 02/13/19 07:31 02/13/19 07:31 02/13/19 07:31 02/13/19 07:31 02/13/19 07:31 - Laboratory Result Diagrams: 02/13/19 07:49 02/13/19 07:49 Laboratory results interpreted by me: 02/13/19 02/13/19 07:49 07:49 RDW 14.8 H Sodium 132.9 L Chloride 94 L Alkaline Phosphatase 164 H - Diagnostic Test Radiology reviewed: Image reviewed, Reports reviewed - CT scan abdomen pelvis is similar appearance compared to in December study. There are numerous dilated fluid-filled small bowel loops with probable obstruction in the deep right pelvis and distal small bowel. - EKG Interpretation by [place] EKG shows normal: Sinus rhythm, [place], Intervals, QRS Complexes. abnormal: ST-T Waves - Borderline inferior T abnormalities Rate: Normal - 72 Rhythm: NSR - Consults Chasity Sutton NP Time consulted: 12:55 Consulted provider: will come to ER Dr. Sahni Time consulted: 12:00 Consulted provider: will come to ER Discharge - Discharge Clinical Impression: Small bowel obstruction Constipation Qualifiers: Constipation type: drug induced constipation Qualified Code(s): K59.03 - Drug induced constipation Condition: Stable Disposition: ADMITTED INPATIENT Admitting Provider: Milena (Hospitalist) Unit Admitted: Medical Floor Referrals: MADDIE SORIANO PA-C [Primary Care Provider] - Follow up as needed Scribe Attestation: 02/13/19 09:43 I personally performed the services described in the documentation, reviewed and edited the documentation which was dictated to the scribe in my presence, and it accurately records my words and actions. I personally performed the services described in the documentation, reviewed and edited the documentation which was dictated to the scribe in my presence, and it accurately records my words and actions.
[2019-02-13] MEDS ORDERED: ONDANSETRON HCL INJ/PF 4 MG/2 ML SDV IV ONE (09:54)
--- NOTE | 2019-02-13 12:17 | RADIOLOGY REPORT (SQ) ---
EXAM DESCRIPTION: CT ABD/PELVIS WITH IV ORAL COMPLETED DATE/TIME: 02/13/2019 11:55 am REASON FOR STUDY: Nausea and vomiting, multiple air-fluid levels COMPARISON: 01/01/2019. Recent radiographs. TECHNIQUE: CT scan of the abdomen and pelvis performed with intravenous and oral contrast using rustam christos scanning technique with dynamic intravenous contrast injection. Images reviewed with lung, soft t issue, and bone windows. Reconstructed coronal and sagittal MPR images reviewed. Delayed images for e valuation of the urinary system also acquired. All images stored on PACS. All CT scanners at this facility use dose modulation, iterative reconstruction, and/or weight based d osing when appropriate to reduce radiation dose to as low as reasonably achievable (ALARA). [facility]: Dose Right [facility]: CareDose [facility]: Dose Right [facility]: Teradose 4D [facility]: Okairos CONTRAST TYPE AND DOSE: contrast/concentration: Isovue 350.00 mg/ml; Total Contrast Delivered: 60.0 ml; Total Saline Delivered: 64.0 ml RENAL FUNCTION: GFR > 60. RADIATION DOSE: CT Rad equipment meets quality standard of care and radiation dose reduction techniq ues were employed. CTDIvol: 8.8 - 12.0 mGy. DLP: 1127 mGy-cm.. LIMITATIONS: None. FINDINGS: LOWER CHEST: Mild dependent right subsegmental atelectasis. Trace right pleural fluid. H iatal hernia. LIVER: Mild chronic bile duct distention post cholecystectomy. SPLEEN: Normal size. No focal lesions. PANCREAS: Mild duct ectasia, unchanged. No inflammatory changes. GALLBLADDER: Status post cholecystectomy. Mild common duct distention, chronic. ADRENAL GLANDS: No significant masses or asymmetry. RIGHT KIDNEY AND URETER: No solid masses. No significant calcification. No hydronephrosis or hydroure ter. LEFT KIDNEY AND URETER: No solid masses. No significant calcification. No hydronephrosis or hydrouret er. AORTA AND VESSELS: Atherosclerotic. No aneurysm or dissection. No venous clot. RETROPERITONEUM: No retroperitoneal adenopathy, hemorrhage or masses. BOWEL AND PERITONEAL CAVITY: Moderate stool. Diffusely distended fluid-filled small bowel loops. Re latively decompressed loops are suggested in the deep right lower quadrant and pelvis, possibly the r egion of obstruction. Of note, this looks very similar to [place] study. Suture lines are seen in th e rectum and in small bowel in the right abdomen. No free air. No significant free fluid. APPENDIX: No evidence of appendicitis. Not discretely seen. PELVIS: No significant masses. Normal bladder. No free fluid. ABDOMINAL WALL: Previous ventral hernia repair. Mesh in place without gross recurrent hernia. BONES: Osteopenic. L1 compression fracture, chronic. OTHER: No other significant finding. IMPRESSION: 1. Similar appearance compared to December study. Numerous dilated fluid-filled small bowel loops with probable obstruction in the deep right pelvis in distal small bowel. No perforation or significant ascites. TECHNICAL DOCUMENTATION: JOB ID: [id number] Quality ID # [id number]: Final reports with documentation of one or more dose reduction techniques (e.g., Au tomated exposure control, adjustment of the mA and/or kV according to patient size, use of iterative reconstruction technique) 2010 [employer]- All Rights Reserved Reading location - IP/workstation name: [email or web address]
[2019-02-13 13:35] LABS: CREATINE KINASE 31 U/L (30-135)
--- NOTE | 2019-02-13 13:37 | PDOC CONSULTATION ---
Consultation Consult Date: 02/13/19 Attending physician:: LUIS ALBERTO ARREOLA Provider Consulted: LUKASZ SAHNI Consult reason:: Abdominal pain nausea History of Present Illness Admission Date/PCP: MADDIE SORIANO PA-C History of Present Illness: SG OSHEA is a 88 year old female Resents emergency department via ground rescue complaining of abdominal pain, distention, nausea vomiting and decreased bowel movements. The symptoms are similar to those of last month requiring patient to be hospitalized on the blood service. She was thought to be suffering from chronic constipation. At that time she was taking on narcotics 10 mg of [place] 4 times a day. States her last bowel movement was over a week ago. In the emergency department she was found to be hemodynamically stable, with no leukocytosis. CT scan of the abdomen and pelvis without oral contrast demonstrated multiple dilated loops of small bowel and some stool in the colon. Surgery was consulted for possible small bowel obstruction. Patient was evaluated approximately 1:[address] Sahni today, and found to be clinically improved but not resolved. Past Medical History Cardiac Medical History: Reports: Coronary Artery Disease, Hyperlipidema, H ypertension Pulmonary Medical History: Denies: Chronic Obstructive Pulmonary Disease (COPD), Respiratory Failure Neurological Medical History: Denies: Seizures Endocrine Medical History: Denies: Diabetes Mellitus Type 2 Malignancy Medical History: Denies: Breast Cancer, Colorectal Cancer GI Medical History: Reports: Diverticulitis Denies: Gastroesophageal Reflux Disease Musculoskeltal Medical History: Reports: Arthritis Denies: Fibromyalgia Skin Medical History: Denies: Eczema, Psoriasis Psychiatric Medical History: Denies: Bipolar Disorder, Depression Traumatic Medical History: Denies: Traumatic Brain Injury Hematology: Denies: Bleeding Tendencies Past Surgical History Past Surgical History: Patient has had 2 hernia repairs to the anterior abdominal wall; she is status post sigmoid colectomy, open, [place] over 20 years ago; last colonoscopy 20 years ago. Past Surgical History: Reports: Appendectomy, Cholecystectomy - Bowel resection related to diverticulitis, tonsillectomy, Herniorrhaphy, Hysterectomy, Orthopedic Surgery Denies: Mastectomy Social History Information Source: Patient - Lives with [id number]. Lives with: Family Smoking Status: Never Smoker Frequency of Alcohol Use: None Hx Recreational Drug Use: No Drugs: None Hx Prescription Drug Abuse: No Family History Family History: None, Reviewed & Not Pertinent Parental Family History Reviewed: Yes Children Family History Reviewed: Yes Sibling(s) Family History Reviewed.: Yes Medication/Allergy Home Medications: Atenolol [Tenormin] 25 mg PO DAILY 07/18/18 Levothyroxine Sodium [Synthroid 0.1 mg Tablet] 0.1 mg PO Q6AM 07/18/18 Hydrocodone Bit/Acetaminophen [Hydrocodon-Acetaminophn 10-325] 1 each PO Q6HP PRN 01/01/19 Calcium Carbonate [Calcium] 600 mg PO BID 01/02/19 Cholecalciferol (Vitamin D3) [Vitamin D3 1000 Unit Tablet] 1,000 unit PO DAILY 01/02/19 Multivitamin [Tab-A-Sherrie (Multiple Vitamin) Tablet] 1 tab PO DAILY 01/02/19 Turmeric/Turmeric Root Extract [Turmeric 500 mg Capsule] 1 each PO DAILY 01/02/19 Ciprofloxacin HCl [Cipro] 500 mg PO DAILY 02/13/19 Furosemide [Lasix 20 mg Tablet] 20 mg PO DAILY 02/13/19 Allergies/Adverse Reactions: amoxicillin [From Augmentin] Allergy (Verified 07/18/18 11:42) clavulanic acid [From Augmentin] Allergy (Verified 07/18/18 11:42) Review of Systems Constitutional: PRESENT: as per HPI Eyes: ABSENT: visual disturbances Ears: ABSENT: hearing changes Cardiovascular: ABSENT: chest pain, dyspnea on exertion, edema, orthropnea, palpitations Musculoskeletal: PRESENT: back pain Physical Exam Vital Signs: Temp Pulse Resp BP Pulse Ox 98.2 F 71 18 128/69 H 97 02/13/19 07:31 02/13/19 07:31 02/13/19 07:31 02/13/19 07:31 02/13/19 07:31 Intake & Output 02/12/19 02/13/19 02/14/19 06:59 06:59 06:59 Intake Total 1000 Balance 1000 Weight 53.07 kg General appearance: PRESENT: mild distress Head exam: PRESENT: normocephalic Eye exam: PRESENT: EOMI Mouth exam: PRESENT: dry mucosa Neck exam: PRESENT: full ROM Respiratory exam: PRESENT: rales Cardiovascular exam: PRESENT: RRR Pulses: PRESENT: normal carotid pulses, normal radial pulses, normal femoral pulses GI/Abdominal exam: PRESENT: other - Highly distended; well-healed midline scar consistent with previous surgery with some diastases. No hernia. Rectal exam: PRESENT: deferred Extremities exam: PRESENT: pedal edema Musculoskeletal exam: PRESENT: other - Apparently not able to close his appointment Chest x-ray Area Neurological exam: PRESENT: oriented to person, oriented to place, oriented to time, oriented to situation Psychiatric exam: PRESENT: appropriate affect Skin exam: PRESENT: other - Skin is warm Results Laboratory Results: 02/13/19 07:49 02/13/19 07:49 02/13/19 02/13/19 07:49 07:49 WBC 6.8 RBC 4.26 Hgb 13.2 Hct 39.5 MCV 93 MCH 31.1 MCHC 33.5 RDW 14.8 H Plt Count 315 Seg Neutrophils % 72.5 Sodium 132.9 L Potassium 4.2 Chloride 94 L Carbon Dioxide 30 Anion Gap 9 BUN 14 Creatinine 0.75 Est GFR ( Amer) > 60 Glucose 98 Calcium 9.9 Total Bilirubin 0.9 AST 23 Alkaline Phosphatase 164 H Total Protein 7.4 Albumin 4.0 Lipase 67.9 Impressions: Acute Abdomen Series 02/13/19 08:30 IMPRESSION: Persistent gaseous distention with scattered air-fluid levels. Obstruction not excluded, but overall appearance looks slightly improved. Abdomen/Pelvis CT 02/13/19 09:41 IMPRESSION: 1. Similar appearance compared to December. Numerous dilated fluid-filled small bowel loops with probable obstruction in the deep right pelvis in distal small bowel. No perforation or significant ascites. Assessment & Plan - Diagnosis (1) Constipation Qualifiers: Constipation type: drug induced constipation Qualified Code(s): K59.03 - Drug induced constipation Is this a current diagnosis for this admission?: Yes Plan: Impression: Abdominal pain, distention, multiple dilated loops of small bowel likely due to chronic constipation; cannot rule out partial mechanical small bowel obstruction. CT scan abdomen and pelvis performed with IV but no oral contrast; Patient feeling better at this time. Recommendations: 1. Agree with admission to hospital service for observation, hydration, cathartics 2. Patient's clinical condition does not improve, she may require a CT with oral contrast, or an upper GI with small bowel follow-through. Her graph 3. Will follow patient in consultation with you.
[2019-02-13 13:54] LABS: APPEARANCE,URINE CLEAR; BILIRUBIN,URINE NEGATIVE (NEGATIVE); COLOR,URINE YELLOW; GLUCOSE, URINE NEGATIVE (NEGATIVE); KETONES,URINE 20 mg/dL (NEGATIVE); LEUKOCYTE ESTERASE,URINE NEGATIVE (NEGATIVE); NITRITE,URINE NEGATIVE (NEGATIVE); PROTEIN,URINE NEGATIVE (NEGATIVE); UROBILINOGEN,URINE NEGATIVE mg/dL (<2.0)
--- NOTE | 2019-02-13 14:34 | RADIOLOGY REPORT (SQ) ---
EXAM DESCRIPTION: CHEST SINGLE VIEW COMPLETED DATE/TIME: 02/13/2019 2:18 pm REASON FOR STUDY: NG tube placement COMPARISON: 01/01/2019 TECHNIQUE: Single frontal radiographic view of the lower chest acquired. NUMBER OF VIEWS: One view. LIMITATIONS: None. FINDINGS: LUNGS AND PLEURA: No pneumothorax. No consolidation or pleural effusion. MEDIASTINUM AND HILAR STRUCTURES: Stable. HEART AND VASCULAR STRUCTURES: Stable. BONES: No acute findings. HARDWARE: NG tube tip overlies the body of the stomach, side-port appears slightly below the GE junct ion. OTHER: No other significant finding. IMPRESSION: NG tube tip overlies the body of the stomach, side-port appears slightly below the GE ju nction. TECHNICAL DOCUMENTATION: JOB ID: [id number] [id number] 2010 [employer]- All Rights Reserved Reading location - IP/workstation name: [email or web address]
[2019-02-13] MEDS ORDERED: DEXTROSE 50%-WATER 25 GM/50 ML DISP.SYRIN IV PRN ×2 (14:43)
[2019-02-13] MEDS ORDERED: ACETAMINOPHEN 650 MG SUPP.RECT PR PRN (14:43)
[2019-02-13] MEDS ORDERED: PROMETHAZINE HCL INJ 25 MG/1 ML VIAL IV PRN (14:43)
[2019-02-13] MEDS ORDERED: ALBUTEROL SULFATE 0.083% NEB 2.5 MG/3 ML AMPUL NEB PRN (14:43)
[2019-02-13] MEDS ORDERED: ONDANSETRON HCL INJ/PF 4 MG/2 ML SDV IV PRN (14:43)
[2019-02-13] MEDS ORDERED: GLUCAGON,HUMAN RECOMB 1 MG INJ SUBCUT PRN (14:43)
[2019-02-13] MEDS ORDERED: DEXTROSE 40% GEL 15 GM TUBE PO PRN ×2 (14:43)
[2019-02-13] MEDS ORDERED: HYDRALAZINE HCL INJ/PF 20 MG/1 ML SDV IV PRN (14:52)
--- NOTE | 2019-02-13 15:02 | PDOC H&P ---
History of Present Illness Admission Date/PCP: 02/13/19 14:24 MADDIE SORIANO PA-C Patient complains of: abd pain, n/v History of Present Illness: SG OSHEA is a 88 year old female with a past medical history significant for hypertension, hypothyroidism, and recent small bowel obstruction who presented to the emergency department today with a complaint of 1 week of progressively worsening abdominal discomfort with nausea and vomiting. Patient reports that she is been unable to tolerate any p.o. intake x24 hours and had a sudden increase in abdominal discomfort today which prompted her to be evaluated in the emergency department. Evaluation in the emergency department revealed normal vital signs, unremarkable laboratory work-up, however, imaging demonstrated a distal small bowel obstruction. Surgery was consulted; will follow along. Patient is referred to the hospitalist service for admission and management of the above-stated complaints and findings. Past Medical History Cardiac Medical History: Reports: Coronary Artery Disease, Hyperlipidema, Hypertension Pulmonary Medical History: Denies: Chronic Obstructive Pulmonary Disease (COPD), Respiratory Failure Neurological Medical History: Denies: Seizures Endocrine Medical History: Denies: Diabetes Mellitus Type 2 Malignancy Medical History: Denies: Breast Cancer, Colorectal Cancer GI Medical History: Reports: Diverticulitis, Other - SBO Denies: Gastroesophageal Reflux Disease Musculoskeltal Medical History: Reports: Arthritis Denies: Fibromyalgia Skin Medical History: Denies: Eczema, Psoriasis Psychiatric Medical History: Denies: Dementia, Depression Traumatic Medical History: Denies: Traumatic Brain Injury Hematology: Denies: Bleeding Tendencies Past Surgical History Past Surgical History: Reports: Appendectomy, Cholecystectomy - Bowel resection related to diverticulitis, Herniorrhaphy, Hysterectomy, Orthopedic Surgery, T onsillectomy Denies: Mastectomy Social History Information Source: Patient Lives with: Family Smoking Status: Never Smoker Frequency of Alcohol Use: None Hx Recreational Drug Use: No Drugs: None Hx Prescription Drug Abuse: No - Advance Directive Resuscitation Status: Full Code Surrogate healthcare decision maker:: The patient's [id number], Diana Oshea, Family History Family History: Reviewed & Not Pertinent Parental Family History Reviewed: Yes Children Family History Reviewed: Yes Sibling(s) Family History Reviewed.: Yes Medication/Allergy Home Medications: Atenolol [Tenormin] 25 mg PO DAILY 07/18/18 Levothyroxine Sodium [Synthroid 0.1 mg Tablet] 0.1 mg PO Q6AM 07/18/18 Calcium Carbonate [Calcium] 1,200 mg PO BID 01/02/19 Cholecalciferol (Vitamin D3) [Vitamin D3 1000 Unit Tablet] 2,000 unit PO DAILY 01/02/19 Multivitamin [Tab-A-Sherrie (Multiple Vitamin) Tablet] 1 tab PO DAILY 01/02/19 Acetaminophen [Tylenol Extra Strength 500 mg Tablet] 1,000 mg PO QHS 02/13/19 Aspirin [Ecotrin 81 mg EC Tablet] 81 mg PO DAILY 02/13/19 Ciprofloxacin HCl [Cipro] 500 mg PO DAILY 02/13/19 Allergies/Adverse Reactions: amoxicillin [From Augmentin] Allergy (Verified 07/18/18 11:42) clavulanic acid [From Augmentin] Allergy (Verified 07/18/18 11:42) Review of Systems Constitutional: ABSENT: chills, fever(s), headache(s), weight gain, weight loss Eyes: ABSENT: visual disturbances Ears: ABSENT: hearing changes Cardiovascular: ABSENT: chest pain, dyspnea on exertion, edema, orthropnea, palpitations Respiratory: ABSENT: cough, hemoptysis Gastrointestinal: PRESENT: abdominal pain, nausea, vomiting. ABSENT: constipation, diarrhea, hematemesis, hematochezia Genitourinary: ABSENT: dysuria, hematuria Musculoskeletal: ABSENT: joint swelling Integumentary: ABSENT: rash, wounds Neurological: ABSENT: abnormal gait, abnormal speech, confusion, dizziness, focal weakness, syncope Psychiatric: ABSENT: anxiety, depression, homidical ideation, suicidal ideation Endocrine: ABSENT: cold intolerance, heat intolerance, polydipsia, polyuria Hematologic/Lymphatic: ABSENT: easy bleeding, easy bruising Physical Exam Vital Signs: Temp Pulse Resp BP Pulse Ox 98.2 F 71 18 128/69 H 97 02/13/19 07:31 02/13/19 07:31 02/13/19 07:31 02/13/19 07:31 02/13/19 07:31 Intake & Output 02/12/19 02/13/19 02/14/19 06:59 06:59 06:59 Intake Total 1000 Balance 1000 Weight 53.07 kg General appearance: PRESENT: no acute distress, cooperative, well-developed, well-nourished Head exam: PRESENT: atraumatic, normocephalic Eye exam: PRESENT: conjunctiva pink, EOMI, PERRLA. ABSENT: scleral icterus Ear exam: PRESENT: normal external ear exam Mouth exam: PRESENT: moist, tongue midline Neck exam: ABSENT: carotid bruit, JVD, lymphadenopathy, thyromegaly Respiratory exam: PRESENT: clear to auscultation delfina, symmetrical, unlabored. ABSENT: rales, rhonchi, wheezes Cardiovascular exam: PRESENT: RRR, +S1, +S2. ABSENT: diastolic murmur, rubs, systolic murmur Pulses: PRESENT: normal dorsalis pedis pul Vascular exam: PRESENT: normal capillary refill GI/Abdominal exam: PRESENT: distended, hypoactive bowel sounds, tenderness. ABSENT: guarding, mass, organolmegaly, rebound Rectal exam: PRESENT: deferred Extremities exam: PRESENT: full ROM. ABSENT: calf tenderness, clubbing, pedal edema Neurological exam: PRESENT: alert, awake, oriented to person, oriented to place, oriented to time, oriented to situation, CN II-XII grossly intact. ABSENT: mot or sensory deficit Psychiatric exam: PRESENT: appropriate affect, normal mood. ABSENT: homicidal ideation, suicidal ideation Skin exam: PRESENT: dry, intact, warm. ABSENT: cyanosis, rash Results Laboratory Results: 02/13/19 07:49 02/13/19 07:49 02/13/19 02/13/19 02/13/19 07:49 07:49 13:40 WBC 6.8 RBC 4.26 Hgb 13.2 Hct 39.5 MCV 93 MCH 31.1 MCHC 33.5 RDW 14.8 H Plt Count 315 Seg Neutrophils % 72.5 Sodium 132.9 L Potassium 4.2 Chloride 94 L Carbon Dioxide 30 Anion Gap 9 BUN 14 Creatinine 0.75 Est GFR ( Amer) > 60 Glucose 98 Calcium 9.9 Total Bilirubin 0.9 AST 23 Alkaline Phosphatase 164 H Total Protein 7.4 Albumin 4.0 Lipase 67.9 Urine Color YELLOW Urine Appearance CLEAR Urine pH 7.0 Ur Specific [place] 1.040 Urine Protein NEGATIVE Urine Glucose (UA) NEGATIVE Urine Ketones 20 H Urine Blood MODERATE H Urine Nitrite NEGATIVE Ur Leukocyte Esterase NEGATIVE Urine WBC (Auto) 4 Urine RBC (Auto) 7 02/13/19 02/13/19 07:49 07:49 Creatine Kinase 31 Troponin I < 0.012 Impressions: Acute Abdomen Series 02/13/19 08:30 IMPRESSION: Persistent gaseous distention with scattered air-fluid levels. Obstruction not excluded, but overall appearance looks slightly improved. Abdomen/Pelvis CT 02/13/19 09:41 IMPRESSION: 1. Similar appearance compared to December study. Numerous dilated fluid-filled small bowel loops with probable obstruction in the deep right pelvis in distal small bowel. No perforation or significant ascites. Chest X-Ray 02/13/19 14:01 IMPRESSION: NG tube tip overlies the body of the stomach, side-port appears slightly below the GE junction. Assessment and Plan - Diagnosis (1) Small bowel obstruction Is this a current diagnosis for this admission?: Yes Plan: The patient is admitted to the medical floor. NG tube has been placed; to will at low intermittent suction. Antiemetics as needed. Surgery is consulted. N.p.o.; IV fluids for hydration. (2) HTN (hypertension) Qualifiers: Hypertension type: essential hypertension Qualified Code(s): I10 - Essential (primary) hypertension Is this a current diagnosis for this admission?: Yes Plan: Medications are on hold while in n.p.o. status. IV hydralazine as needed for blood pressure control. (3) Hypothyroidism Is this a current diagnosis for this admission?: Yes Plan: Levothyroxine currently on hold due to npo status. - Time Time Spent with patient: 35 or more minutes Medications reviewed and adjusted accordingly: Yes Anticipated discharge: Home - Inpatient Certification Based on my medical assessment, after consideration of the patient's comorbidities, presenting symptoms, or acuity I expect that the services needed warrant INPATIENT care.: Yes I certify that my determination is in accordance with my understanding of Medicare's requirements for reasonable and necessary INPATIENT services [42 CFR 412.3e].: Yes Medical Necessity: Need For IV Fluids, Need for Surgery, Risk of Complication if Not Cared For in Hospital, Risk of Diagnosis Which Will Require Inpatient Eval/Care/Monitoring
[2019-02-13] MEDS: NORMAL SALINE 1000 ML 1,000 ML IV PRN (15:54)
--- NOTE | 2019-02-13 19:43 | EKG REPORT ---
SEVERITY:- BORDERLINE ECG - SINUS RHYTHM BORDERLINE T ABNORMALITIES, INFERIOR LEADS : Confirmed by: Arlene Tolentino MD 13-Feb-2019 19:43:16
[2019-02-13] MEDS: HEPARIN SOD (PORCINE) 5,000 UNIT/ML 1 ML VIAL SUBCUT SCH (23:11)
[2019-02-14] MEDS: NORMAL SALINE 1000 ML 1,000 ML IV PRN (01:36)
[2019-02-14] MEDS: HEPARIN SOD (PORCINE) 5,000 UNIT/ML 1 ML VIAL SUBCUT SCH ×3 (05:56→23:12)
[2019-02-14 06:14] LABS: HEMATOCRIT 40.1 % (36.0-47.0); HEMOGLOBIN 13.3 g/dL (12.0-15.5); MEAN CORPUSCULAR HEMOGLOBIN 31.2 pg (27.0-33.4); MEAN CORPUSCULAR HGB CONC 33.3 g/dL (32.0-36.0); MEAN CORPUSCULAR VOLUME 94 fl (80-97); PLATELET COUNT 290 10^3/uL (150-450); RED BLOOD COUNT 4.28 10^6/uL (3.72-5.28); RED CELL DISTRIBUTION WIDTH 14.6 % (11.5-14.0); WHITE BLOOD COUNT 6.9 10^3/uL (4.0-10.5)
[2019-02-14 06:41] LABS: ANION GAP 13 (5-19); BLOOD UREA NITROGEN 12 mg/dL (7-20); CALCIUM 9.3 mg/dL (8.4-10.2); CARBON DIOXIDE 21 mmol/L (22-30); CHLORIDE 100 mmol/L (98-107); POTASSIUM 3.8 mmol/L (3.6-5.0)
[2019-02-14 06:46] LABS: GLUCOSE 64 mg/dL (75-110)
[2019-02-14] MEDS: DEXTROSE 5%-NORMAL SALINE 1,000 ML IV PRN ×2 (10:59→18:56)
[2019-02-14] MEDS: PANTOPRAZOLE SODIUM 40 MG VIAL IV SCH (10:59)
--- NOTE | 2019-02-14 12:51 | PDOC PROGRESS REPORT ---
Subjective Progress Note for:: 02/14/19 Subjective:: Hospital day 2 for the patient with partial small bowel obstruction, recurrent. She states she feels better. Nasogastric tube was inserted and drained approximately 500 cc overnight. She states she has passed flatus but that has not been witnessed by staff Reason For Visit: SMALL BOWEL OBSTRUCTION Physical Exam Vital Signs: Temp Pulse Resp BP Pulse Ox 98.9 F 75 17 137/57 H 96 02/14/19 12:03 02/14/19 12:03 02/14/19 12:03 02/14/19 12:03 02/14/19 12:03 Intake & Output 02/13/19 02/14/19 02/15/19 06:59 06:59 06:59 Intake Total 1970 Output Total 115 Balance 1855 Weight 32.9 kg General appearance: PRESENT: no acute distress GI/Abdominal exam: PRESENT: other - The abdomen feels less distended, no peritoneal signs no rigidity. Results Laboratory Results: 02/14/19 05:22 02/14/19 05:22 02/13/19 02/14/19 02/14/19 13:40 05:22 05:22 WBC 6.9 RBC 4.28 Hgb 13.3 Hct 40.1 MCV 94 MCH 31.2 MCHC 33.3 RDW 14.6 H Plt Count 290 Sodium 133.8 L Potassium 3.8 Chloride 100 Carbon Dioxide 21 L Anion Gap 13 BUN 12 Creatinine 0.67 Est GFR ( Amer) > 60 Glucose 64 L Calcium 9.3 Magnesium 1.6 Urine Color YELLOW Urine Appearance CLEAR Urine pH 7.0 Ur Specific [place] 1.040 Urine Protein NEGATIVE Urine Glucose (UA) NEGATIVE Urine Ketones 20 H Urine Blood MODERATE H Urine Nitrite NEGATIVE Ur Leukocyte Esterase NEGATIVE Urine WBC (Auto) 4 Urine RBC (Auto) 7 02/13/19 02/13/19 07:49 07:49 Creatine Kinase 31 Troponin I < 0.012 Impressions: Acute Abdomen Series 02/13/19 08:30 IMPRESSION: Persistent gaseous distention with scattered air-fluid levels. Obstruction not excluded, but overall appearance looks slightly improved. Abdomen/Pelvis CT 02/13/19 09:41 IMPRESSION: 1. Similar appearance compared to December. Numerous dilated fluid-filled small bowel loops with probable obstruction in the deep right pelvis in distal small bowel. No perforation or significant ascites. Chest X-Ray 02/13/19 14:01 IMPRESSION: NG tube tip overlies the body of the stomach, side-port appears slightly below the GE junction. Assessment & Plan - Diagnosis (1) Small bowel obstruction Is this a current diagnosis for this admission?: Yes Plan: Impression: Slight clinical improvement in abdominal distention, possible return of bowel function in this 88-year-old white female with a history of constipation. No clinical indication for exploratory surgery. Commendations: 1. We will check acute abdominal series x-rays 2. Continue nasogastric decompression 3. We will get patient up and out of bed again today. (2) Constipation Qualifiers: Constipation type: drug induced constipation Qualified Code(s): K59.03 - Drug induced constipation Is this a current diagnosis for this admission?: Yes (3) CAD (coronary artery disease) Is this a current diagnosis for this admission?: Yes (5) Hypothyroidism Is this a current diagnosis for this admission?: Yes
--- NOTE | 2019-02-14 14:24 | RADIOLOGY REPORT (SQ) ---
EXAM DESCRIPTION: ABDOMEN 2 VIEWS COMPLETED DATE/TIME: 02/14/2019 2:14 pm REASON FOR STUDY: Interval change in bowel gas pattern COMPARISON: 02/13/2019. CT 02/13/2019. NUMBER OF VIEWS: Two views. TECHNIQUE: Supine and erect/decubitus radiographic images of the abdomen acquired. LIMITATIONS: None. FINDINGS: FREE AIR: None. No abnormal gas collections. LUNG BASES: Clear. BOWEL GAS PATTERN: Mild persistent gas but less conspicuous air-fluid levels. CALCIFICATIONS: Chronic calcification right mid abdomen. Based on CT, this lies adjacent to but not within colon. SOFT TISSUES: No gross mass or suggestion of organomegaly. HARDWARE: Nasogastric tube down, tip appropriate. BONES: Marked osteopenia. OTHER: No other significant finding. IMPRESSION: 1. Possibly mildly improved bowel gas pattern. Nasogastric tube appropriate. TECHNICAL DOCUMENTATION: JOB ID: [id number] [employer]- All Rights Reserved Reading location - IP/workstation name: [email or web address]
--- NOTE | 2019-02-14 19:15 | Progress Note Acknowledgement ---
Progress Note Acknowledgement Progess Note Acknowledgement: I, the undersigned member of the medical staff with appropriate privileges and with supervisory authority over Chasity Sutton, a [facility] allied health professional, acknowledge that I have reviewed the progress notes entered on this patient, and in my professional judgment believe that the assessment made and/or any care evidenced was appropriate
--- NOTE | 2019-02-14 19:22 | PDOC PROGRESS REPORT ---
Subjective Progress Note for:: 02/14/19 Subjective:: SG OSHEA is a 88 year old female with a past medical history significant for hypertension, hypothyroidism, and recent small bowel obstruction who was admitted 02/13/2019 for recurrent small bowel obstruction. Patient was seen on waste water plant operator rounds. She was sleeping when I enter the room, did wake briefly she reports that she felt like she was doing slightly better but then quickly fell back to sleep. She did deny abdominal discomfort, nausea and vomiting. She is uncertain if she has passed gas. No bowel movements yet. She had no questions or concerns at this time. No concerns per nursing. Reason For Visit: SMALL BOWEL OBSTRUCTION Physical Exam Vital Signs: Temp Pulse Resp BP Pulse Ox 99.0 F 74 16 129/49 H 93 02/14/19 15:30 02/14/19 15:30 02/14/19 15:30 02/14/19 15:30 02/14/19 15:30 Intake & Output 02/13/19 02/14/19 02/15/19 06:59 06:59 06:59 Intake Total 1970 994 Output Total 115 Balance 1855 994 Weight 32.9 kg General appearance: PRESENT: no acute distress, cooperative - Pleasant, thin, well-developed, well-nourished Head exam: PRESENT: atraumatic, normocephalic Eye exam: PRESENT: conjunctiva pink, EOMI, PERRLA. ABSENT: scleral icterus Ear exam: PRESENT: normal external ear exam Mouth exam: PRESENT: moist, tongue midline Neck exam: ABSENT: carotid bruit, JVD, lymphadenopathy, thyromegaly Respiratory exam: PRESENT: clear to auscultation delfina, symmetrical, unlabored. ABSENT: rales, rhonchi, wheezes Cardiovascular exam: PRESENT: RRR, +S1, +S2. ABSENT: diastolic murmur, rubs, systolic murmur Pulses: PRESENT: normal dorsalis pedis pul Vascular exam: PRESENT: normal capillary refill GI/Abdominal exam: PRESENT: diminished bowel sounds, distended, firm, normal bowel sounds, soft. ABSENT: guarding, mass, organolmegaly, rebound, tenderness Rectal exam: PRESENT: deferred Extremities exam: PRESENT: full ROM. ABSENT: calf tenderness, clubbing, pedal edema Neurological exam: PRESENT: alert, awake, oriented to person, oriented to place, oriented to time, oriented to situation, CN II-XII grossly intact. ABSENT: motor sensory deficit Psychiatric exam: PRESENT: appropriate affect, normal mood. ABSENT: homicidal ideation, suicidal ideation Skin exam: PRESENT: dry, intact, warm. ABSENT: cyanosis, rash Results Laboratory Results: 02/14/19 05:22 02/14/19 05:22 02/14/19 02/14/19 05:22 05:22 WBC 6.9 RBC 4.28 Hgb 13.3 Hct 40.1 MCV 94 MCH 31.2 MCHC 33.3 RDW 14.6 H Plt Count 290 Sodium 133.8 L Potassium 3.8 Chloride 100 Carbon Dioxide 21 L Anion Gap 13 BUN 12 Creatinine 0.67 Est GFR ( Amer) > 60 Glucose 64 L Calcium 9.3 Magnesium 1.6 02/13/19 02/13/19 07:49 07:49 Creatine Kinase 31 Troponin I < 0.012 Impressions: Acute Abdomen Series 02/13/19 08:30 IMPRESSION: Persistent gaseous distention with scattered air-fluid levels. Obstruction not excluded, but overall appearance looks slightly improved. Abdomen/Pelvis CT 02/13/19 09:41 IMPRESSION: 1. Similar appearance compared to December. Numerous dilated fluid-filled small bowel loops with probable obstruction in the deep right pelvis in distal small bowel. No perforation or significant ascites. Chest X-Ray 02/13/19 14:01 IMPRESSION: NG tube tip overlies the body of the stomach, side-port appears slightly below the GE junction. Abdomen X-Ray 02/14/19 00:00 IMPRESSION: 1. Possibly mildly improved bowel gas pattern. Nasogastric tube appropriate. Assessment and Plan - Diagnosis (1) Small bowel obstruction Is this a current diagnosis for this admission?: Yes Plan: The patient is admitted to the medical floor. NG tube has been placed; to wall at low intermittent suction. Antiemetics as needed. Surgery is consulted; appreciate their assistance. N.p.o.; IV fluids for hydration. (2) HTN (hypertension) Qualifiers: Hypertension type: essential hypertension Qualified Code(s): I10 - Essential (primary) hypertension Is this a current diagnosis for this admission?: Yes Plan: Acceptable blood pressures at present. Medications are on hold while in n.p.o. status. IV hydralazine as needed for blood pressure control; no doses required. (3) Hypothyroidism Is this a current diagnosis for this admission?: Yes Plan: Levothyroxine currently on hold due to npo status. (4) Hypoglycemia Is this a current diagnosis for this admission?: Yes Plan: Secondary to npo status. Did require Glucacon x 1 this morning. Have adjusted IVF to D5NS Accu-cheks q6 Hypoglycemia protocol in place. - Time Time Spent with patient: 15-24 minutes Medications reviewed and adjusted accordingly: Yes Anticipated discharge: Home
[2019-02-15] MEDS: DEXTROSE 5%-NORMAL SALINE 1,000 ML IV PRN ×2 (03:35→16:47)
[2019-02-15] MEDS: HEPARIN SOD (PORCINE) 5,000 UNIT/ML 1 ML VIAL SUBCUT SCH ×3 (05:31→21:09)
[2019-02-15] MEDS: PANTOPRAZOLE SODIUM 40 MG VIAL IV SCH (09:46)
[2019-02-15] MEDS ORDERED: ONDANSETRON HCL INJ/PF 4 MG/2 ML SDV IV PRN (13:30)
[2019-02-15] MEDS ORDERED: PROMETHAZINE HCL INJ 25 MG/1 ML VIAL IV PRN (13:30)
--- NOTE | 2019-02-15 15:31 | RADIOLOGY REPORT (SQ) ---
EXAM DESCRIPTION: SMALL BOWEL SERIES COMPLETED DATE/TIME: 02/15/2019 2:22 pm REASON FOR STUDY: Rule out mechanical small bowel obstruction, SB ONLY PER DR. GAFFNEY COMPARISON: CT abdomen and pelvis 02/13/2019 FLUOROSCOPY TIME: 1 minutes 27 seconds of fluoroscopy was used. 7 images saved to PACS. LIMITATIONS: None. PROCEDURE: Initial core laying machine operator image of abdomen acquired, followed by administration of Gastrografin throu gh an NG tube. Serial radiographic images acquired. Fluoroscopic images recorded of the terminal il eum and other indicated areas. All images stored on PACS. FINDINGS: INDUSTRIAL COFFEE GRINDER KUB: Scattered air-filled loops of small bowel identified. NG tube is within the st omach. Surgical clips in the right upper quadrant from previous cholecystectomy. Surgical sutures a re seen in the midline of the abdomen from previous bowel resection. Calcific density overlying the right mid abdomen. STOMACH: There is a small sliding hiatal hernia with mild gastroesophageal reflux noted. No delay in gastric emptying. DUODENUM: Normal mucosal pattern with adequate distention. No displacement or obstruction. JEJUNUM: Normal mucosal pattern. Mild dilatation. No segmentation, strictures or masses. ILEUM: Normal mucosal pattern. Mild dilatation. No segmentation, strictures or masses. TERMINAL ILEUM AND ILEO-CECAL VALVE: Not clearly identified on spot imaging, although contrast is see n entering the colon without delay. PROXIMAL COLON: Incompletely imaged. No abnormality. OTHER: Patient did vomit during the exam. Patient had a large bowel movement during the exam. Trans it time for contrast reaching the colon was within normal limits with contrast in the colon on the 2 hour image. IMPRESSION: MILD DILATATION OF JEJUNAL AND ILEAL LOOPS WITHOUT EVIDENCE OF BOWEL OBSTRUCTION. TRANS IT TIME IS NORMAL. COMMENT: Quality ID [id number]: Final reports for procedures using fluoroscopy that document radiation exp osure indices, or exposure time and number of fluorographic images (if radiation exposure indices are not available) TECHNICAL DOCUMENTATION: JOB ID: [id number] [employer]- All Rights Reserved Reading location - IP/workstation name: [email or web address]
--- NOTE | 2019-02-15 18:35 | PDOC PROGRESS REPORT ---
Subjective Progress Note for:: 02/15/19 Subjective:: Feels well. Having liquid bowel movements. No abdominal distention and no abdominal pain. Reason For Visit: SMALL BOWEL OBSTRUCTION Physical Exam Vital Signs: Temp Pulse Resp BP Pulse Ox 98.4 F 72 16 134/54 H 96 02/15/19 10:57 02/15/19 13:25 02/15/19 13:25 02/15/19 10:57 02/15/19 13:25 Intake & Output 02/14/19 02/15/19 02/16/19 06:59 06:59 06:59 Intake Total 1970 1993 1000 Output Total 115 300 Balance 1855 1694 1000 Weight 32.9 kg 33.2 kg General appearance: PRESENT: no acute distress, cooperative Respiratory exam: PRESENT: clear to auscultation delfina Cardiovascular exam: PRESENT: RRR GI/Abdominal exam: PRESENT: other - Soft, nondistended, nontender to palpation. Results Laboratory Results: 02/14/19 05:22 02/14/19 05:22 02/13/19 02/13/19 07:49 07:49 Creatine Kinase 31 Troponin I < 0.012 Impressions: Acute Abdomen Series 02/13/19 08:30 IMPRESSION: Persistent gaseous distention with scattered air-fluid levels. Obstruction not excluded, but overall appearance looks slightly improved. Abdomen/Pelvis CT 02/13/19 09:41 IMPRESSION: 1. Similar appearance compared to December. Numerous dilated fluid-filled small bowel loops with probable obstruction in the deep right pelvis in distal small bowel. No perforation or significant ascites. Chest X-Ray 02/13/19 14:01 IMPRESSION: NG tube tip overlies the body of the stomach, side-port appears slightly below the GE junction. Abdomen X-Ray 02/14/19 00:00 IMPRESSION: 1. Possibly mildly improved bowel gas pattern. Nasogastric tube appropriate. Small Bowel X-Ray 02/15/19 08:00 IMPRESSION: MILD DILATATION OF JEJUNAL AND ILEAL LOOPS WITHOUT EVIDENCE OF BOWEL OBSTRUCTION. TRANSIT TIME IS NORMAL. Assessment & Plan - Diagnosis (1) Small bowel obstruction Is this a current diagnosis for this admission?: Yes Plan: Appears to have resolved. Small bowel follow series demonstrate no evidence of obstruction. Will DC NG tube. Will start diet tomorrow morning if she continues to do well. Did not want to start a diet in the night time.
[2019-02-15] MEDS ORDERED: LACTULOSE SYRUP 20 GM/30 ML UDCUP PO ONE (18:48)
--- NOTE | 2019-02-15 18:58 | PDOC PROGRESS REPORT ---
Subjective Progress Note for:: 02/15/19 Subjective:: SG OSHEA is a 88 year old female with a past medical history significant for hypertension, hypothyroidism, and recent small bowel obstruction who was admitted 02/13/2019 for recurrent small bowel obstruction. Patient was seen on ends breakage clerk rounds. She was found resting in bed, comfortably, on room air. She has an NG tube to low wall suction with appro ximately 500 mL's dark fluid in the canister. She reports some nasal discomfort and frequent sneezing related to the NG tube. Otherwise, she has no complaints today. She does report frequent bowel sounds but no passing of gas and no bowel movements. She denies fever, chills, chest pain, palpitations, dyspnea, abdominal pain, nausea vomiting diarrhea. She has no other questions or concerns. No concerns per nursing. Reason For Visit: SMALL BOWEL OBSTRUCTION Physical Exam Vital Signs: Temp Pulse Resp BP Pulse Ox 98.4 F 72 16 134/54 H 96 02/15/19 10:57 02/15/19 13:25 02/15/19 13:25 02/15/19 10:57 02/15/19 13:25 Intake & Output 02/14/19 02/15/19 02/16/19 06:59 06:59 06:59 Intake Total 1970 1994 1000 Output Total 115 300 Balance 1855 1694 1000 Weight 32.9 kg 33.2 kg General appearance: PRESENT: no acute distress, cooperative, thin, well- developed Head exam: PRESENT: atraumatic, normocephalic Eye exam: PRESENT: conjunctiva pink, EOMI, PERRLA. ABSENT: scleral icterus Ear exam: PRESENT: normal external ear exam Mouth exam: PRESENT: moist, tongue midline Neck exam: ABSENT: carotid bruit, JVD, lymphadenopathy, thyromegaly Respiratory exam: PRESENT: clear to auscultation delfina, symmetrical, unlabored. ABSENT: rales, rhonchi, wheezes Cardiovascular exam: PRESENT: RRR, +S1, +S2. ABSENT: diastolic murmur, rubs, systolic murmur Pulses: PRESENT: normal dorsalis pedis pul Vascular exam: PRESENT: normal capillary refill GI/Abdominal exam: PRESENT: distended, hyperactive bowel sounds, soft. ABSENT: guarding, mass, organolmegaly, rebound, tenderness Rectal exam: PRESENT: deferred Extremities exam: PRESENT: full ROM. ABSENT: calf tenderness, clubbing, pedal edema Musculoskeletal exam: PRESENT: ambulatory Neurological exam: PRESENT: alert, awake, oriented to person, oriented to place, oriented to time, oriented to situation, CN II-XII grossly intact. ABSENT: motor sensory deficit Psychiatric exam: PRESENT: appropriate affect, normal mood. ABSENT: homicidal ideation, suicidal ideation Skin exam: PRESENT: dry, intact, warm. ABSENT: cyanosis, rash Results Laboratory Results: 02/14/19 05:22 02/14/19 05:22 02/13/19 02/13/19 07:49 07:49 Creatine Kinase 31 Troponin I < 0.012 Impressions: Acute Abdomen Series 02/13/19 08:30 IMPRESSION: Persistent gaseous distention with scattered air-fluid levels. Obstruction not excluded, but overall appearance looks slightly improved. Abdomen/Pelvis CT 02/13/19 09:41 IMPRESSION: 1. Similar appearance compared to December. Numerous dilated fluid-filled small bowel loops with probable obstruction in the deep right pelvis in distal small bowel. No perforation or significant ascites. Chest X-Ray 02/13/19 14:01 IMPRESSION: NG tube tip overlies the body of the stomach, side-port appears slightly below the GE junction. Abdomen X-Ray 02/14/19 00:00 IMPRESSION: 1. Possibly mildly improved bowel gas pattern. Nasogastric tube appropriate. Small Bowel X-Ray 02/15/19 08:00 IMPRESSION: MILD DILATATION OF JEJUNAL AND ILEAL LOOPS WITHOUT EVIDENCE OF BOWEL OBSTRUCTION. TRANSIT TIME IS NORMAL. Assessment and Plan - Diagnosis (1) Small bowel obstruction Is this a current diagnosis for this admission?: Yes Plan: Increased bowel sounds; as of this morning, not yet passing gas or having stools The patient is admitted to the medical floor. NG tube has been placed; to wall at low intermittent suction. Antiemetics as needed. Surgery is consulted; appreciate their assistance. N.p.o.; IV fluids for hydration. (2) HTN (hypertension) Qualifiers: Hypertension type: essential hypertension Qualified Code(s): I10 - Essential (primary) hypertension Is this a current diagnosis for this admission?: Yes Plan: Acceptable blood pressures at present. Medications are on hold while in n.p.o. status. IV hydralazine as needed for blood pressure control; no doses required. (3) Hypothyroidism Is this a current diagnosis for this admission?: Yes Plan: Levothyroxine currently on hold due to npo status. (4) Hypoglycemia Is this a current diagnosis for this admission?: Yes Plan: No further episodes. Secondary to npo status. Did require Glucacon x 1 yesterday. Have adjusted IVF to D5NS Accu-cheks q6 Hypoglycemia protocol in place. - Time Time Spent with patient: 15-24 minutes Medications reviewed and adjusted accordingly: Yes Anticipated discharge: Home Within: within 72 hours
[2019-02-16] MEDS: DEXTROSE 5%-NORMAL SALINE 1,000 ML IV PRN (00:49)
[2019-02-16] MEDS: HEPARIN SOD (PORCINE) 5,000 UNIT/ML 1 ML VIAL SUBCUT SCH ×3 (05:11→21:14)
[2019-02-16 06:05] LABS: ANION GAP 6 (5-19); BLOOD UREA NITROGEN 5 mg/dL (7-20); CALCIUM 8.1 mg/dL (8.4-10.2); CARBON DIOXIDE 26 mmol/L (22-30); CHLORIDE 105 mmol/L (98-107); GLUCOSE 115 mg/dL (75-110)
[2019-02-16 06:11] LABS: POTASSIUM 2.7 mmol/L (3.6-5.0)
--- NOTE | 2019-02-16 08:00 | PDOC PROGRESS REPORT ---
Subjective Progress Note for:: 02/16/19 Reason For Visit: SMALL BOWEL OBSTRUCTION Physical Exam Vital Signs: Temp Pulse Resp BP Pulse Ox 97.6 F 75 15 121/53 L 96 02/15/19 23:11 02/15/19 23:11 02/15/19 23:11 02/15/19 23:11 02/15/19 23:11 Intake & Output 02/15/19 02/16/19 02/17/19 06:59 06:59 06:59 Intake Total 1993 1999 Output Total 300 Balance 1694 1999 Weight 33.2 kg 32.7 kg General appearance: PRESENT: no acute distress Head exam: PRESENT: normocephalic Eye exam: PRESENT: EOMI Ear exam: PRESENT: normal external ear exam Mouth exam: PRESENT: moist Teeth exam: PRESENT: poor dentation Neck exam: PRESENT: full ROM Respiratory exam: PRESENT: clear to auscultation delfina Cardiovascular exam: PRESENT: RRR Pulses: PRESENT: normal radial pulses, normal femoral pulses Vascular exam: PRESENT: normal capillary refill GI/Abdominal exam: PRESENT: soft Rectal exam: PRESENT: deferred Extremities exam: PRESENT: full ROM Musculoskeletal exam: PRESENT: full ROM Psychiatric exam: PRESENT: appropriate affect Skin exam: PRESENT: dry Results Laboratory Results: 02/14/19 05:22 02/16/19 05:13 02/16/19 05:13 Sodium 137.2 Potassium 2.7 L* Chloride 105 Carbon Dioxide 26 Anion Gap 6 BUN 5 L Creatinine 0.49 L Est GFR ( Amer) > 60 Glucose 115 H Calcium 8.1 L 02/13/19 02/13/19 07:49 07:49 Creatine Kinase 31 Troponin I < 0.012 Impressions: Acute Abdomen Series 02/13/19 08:30 IMPRESSION: Persistent gaseous distention with scattered air-fluid levels. Obstruction not excluded, but overall appearance looks slightly improved. Abdomen/Pelvis CT 02/13/19 09:41 IMPRESSION: 1. Similar appearance compared to December study. Numerous dilated fluid-filled small bowel loops with probable obstruction in the deep right pelvis in distal small bowel. No perforation or significant ascites. Chest X-Ray 02/13/19 14:01 IMPRESSION: NG tube tip overlies the body of the stomach, side-port appears slightly below the GE junction. Abdomen X-Ray 02/14/19 00:00 IMPRESSION: 1. Possibly mildly improved bowel gas pattern. Nasogastric tube appropriate. Small Bowel X-Ray 02/15/19 08:00 IMPRESSION: MILD DILATATION OF JEJUNAL AND ILEAL LOOPS WITHOUT EVIDENCE OF BOWEL OBSTRUCTION. TRANSIT TIME IS NORMAL. Assessment & Plan - Diagnosis (1) Small bowel obstruction Is this a current diagnosis for this admission?: Yes - Plan Summary Plan Summary: small bowel series neg for sbo pt now passing stool will start clear liquid diet
[2019-02-16] MEDS: PANTOPRAZOLE SODIUM 40 MG VIAL IV SCH (10:18)
[2019-02-16] MEDS: POTASSI CL 20 MEQ/50 ML RIDER 20 MEQ/50 ML RTUPB IV SCH ×3 (10:40→14:41)
--- NOTE | 2019-02-16 12:48 | PDOC PROGRESS REPORT ---
Subjective Progress Note for:: 02/16/19 Subjective:: Patient is feeling better. She denies abdominal pain. She still feels weak and has not been out of bed much. She did state that earlier today she had a wave of lightheadedness that resolved spontaneously. She cannot identify any instigating factors or prodrome. She states that it was prior to the IV potassium. She denies any room spinning. Reason For Visit: SMALL BOWEL OBSTRUCTION, lightheadedness, hypokalemia Physical Exam Vital Signs: Temp Pulse Resp BP Pulse Ox 98.3 F 76 18 145/69 H 98 02/16/19 10:44 02/16/19 10:44 02/16/19 10:44 02/16/19 10:44 02/16/19 10:44 Intake & Output 02/15/19 02/16/19 02/17/19 06:59 06:59 06:59 Intake Total 1993 1999 999 Output Total 300 Balance 1694 1999 999 Weight 33.2 kg 32.7 kg General appearance: PRESENT: no acute distress, cooperative, thin, well-deve loped Head exam: PRESENT: atraumatic, normocephalic Eye exam: PRESENT: conjunctiva pink, EOMI. ABSENT: nystagmus, scleral icterus Ear exam: PRESENT: normal external ear exam. ABSENT: bleeding, drainage Mouth exam: PRESENT: dry mucosa, tongue midline Respiratory exam: PRESENT: clear to auscultation delfina, symmetrical, unlabored. ABSENT: accessory muscle use, rales, rhonchi, tachypnea, wheezes Cardiovascular exam: PRESENT: RRR, +S1, +S2, other - Positive S4 GI/Abdominal exam: PRESENT: diminished bowel sounds, soft. ABSENT: distended, guarding, tenderness Extremities exam: ABSENT: calf tenderness, joint swelling, pedal edema Musculoskeletal exam: PRESENT: normal inspection Neurological exam: PRESENT: alert, awake, oriented to person, oriented to place, oriented to time, oriented to situation, CN II-XII grossly intact Psychiatric exam: PRESENT: appropriate affect, normal mood. ABSENT: agitated, anxious Focused psych exam: ABSENT: delusional, restlessness Results Laboratory Results: 02/14/19 05:22 02/16/19 05:13 02/16/19 05:13 Sodium 137.2 Potassium 2.7 L* Chloride 105 Carbon Dioxide 26 Anion Gap 6 BUN 5 L Creatinine 0.49 L Est GFR ( Amer) > 60 Glucose 115 H Calcium 8.1 L 02/13/19 02/13/19 07:49 07:49 Creatine Kinase 31 Troponin I < 0.012 Impressions: Acute Abdomen Series 02/13/19 08:30 IMPRESSION: Persistent gaseous distention with scattered air-fluid levels. Obstruction not excluded, but overall appearance looks slightly improved. Abdomen/Pelvis CT 02/13/19 09:41 IMPRESSION: 1. Similar appearance compared to December study. Numerous dilated fluid-filled small bowel loops with probable obstruction in the deep right pelvis in distal small bowel. No perforation or significant ascites. Chest X-Ray 02/13/19 14:01 IMPRESSION: NG tube tip overlies the body of the stomach, side-port appears slightly below the GE junction. Abdomen X-Ray 02/14/19 00:00 IMPRESSION: 1. Possibly mildly improved bowel gas pattern. Nasogastric tube appropriate. Small Bowel X-Ray 02/15/19 08:00 IMPRESSION: MILD DILATATION OF JEJUNAL AND ILEAL LOOPS WITHOUT EVIDENCE OF BOWEL OBSTRUCTION. TRANSIT TIME IS NORMAL. Assessment and Plan - Diagnosis (1) Small bowel obstruction Is this a current diagnosis for this admission?: Yes Plan: 02/16/2019-the patient was passing flatus and in fact has been started on clear liquids by surgery. We will likely advance her diet tomorrow. With tolerance of oral intake hopefully she can discharge within 1 to 2 days. (2) HTN (hypertension) Qualifiers: Hypertension type: essential hypertension Qualified Code(s): I10 - Essential (primary) hypertension Is this a current diagnosis for this admission?: Yes Plan: 02/16/2019-the patient's blood pressure was elevated initially. Her atenolol has been on hold. Today she complained of some lightheadedness. Orthostatic checks revealed orthostatic change. Because she has been n.p.o. I have ordered a bolus of fluids and then ongoing normal saline. Hopefully as her diet advances her pressures will stabilize. Now that she is taking liquids by mouth I will resume her atenolol tomorrow. (3) Hypothyroidism Qualifiers: Hypothyroidism type: unspecified Qualified Code(s): E03.9 - Hypothyroidism, unspecified Is this a current diagnosis for this admission?: Yes Plan: 02/16/2019-because she has been n.p.o. she has been off of her levothyroxine for several days. I will resume her baseline dose tomorrow. (4) Hypoglycemia Is this a current diagnosis for this admission?: Yes Plan: 02/16/2019-the patient was initially having low blood glucose. She was n.p.o. she was started on a dextrose solution. Now that she is on clear liquids I will discontinue the dextrose. As noted above she will receive a bolus of normal saline. (5) Hypokalemia Is this a current diagnosis for this admission?: Yes Plan: 02/16/2019-potassium was low today. Because she was n.p.o. this morning I ordered 60 mEq of potassium IV. If she tolerates p.o. we can initiate oral supplement tomorrow. As her diet increases her potassium will likely stabilize. - Time Time Spent with patient: Less than 15 minutes Medications reviewed and adjusted accordingly: Yes Anticipated discharge: Home - Plan Summary Plan Summary: Orthostatic, potassium rider
[2019-02-17] MEDS: HEPARIN SOD (PORCINE) 5,000 UNIT/ML 1 ML VIAL SUBCUT SCH ×2 (05:08→13:01)
[2019-02-17 06:49] LABS: HEMATOCRIT 37.3 % (36.0-47.0); HEMOGLOBIN 12.6 g/dL (12.0-15.5); MEAN CORPUSCULAR HEMOGLOBIN 31.4 pg (27.0-33.4); MEAN CORPUSCULAR HGB CONC 33.8 g/dL (32.0-36.0); MEAN CORPUSCULAR VOLUME 93 fl (80-97); PLATELET COUNT 276 10^3/uL (150-450); RED BLOOD COUNT 4.02 10^6/uL (3.72-5.28); RED CELL DISTRIBUTION WIDTH 14.6 % (11.5-14.0); WHITE BLOOD COUNT 5.8 10^3/uL (4.0-10.5)
[2019-02-17 07:15] LABS: ALBUMIN 2.5 g/dL (3.5-5.0); ALKALINE PHOSPHATASE 109 U/L (38-126); ANION GAP 6 (5-19); ASPARTATE AMINO TRANSFERASE 19 U/L (14-36); BILIRUBIN,DIRECT 0.1 mg/dL (0.0-0.4); BILIRUBIN,TOTAL 0.5 mg/dL (0.2-1.3); BLOOD UREA NITROGEN 4 mg/dL (7-20); CALCIUM 8.2 mg/dL (8.4-10.2); CARBON DIOXIDE 25 mmol/L (22-30); CHLORIDE 104 mmol/L (98-107); GLUCOSE 84 mg/dL (75-110); TOTAL PROTEIN 5.2 g/dL (6.3-8.2)
[2019-02-17 07:18] LABS: POTASSIUM 3.1 mmol/L (3.6-5.0)
[2019-02-17] MEDS ORDERED: LEVOTHYROXINE SODIUM 0.1 MG TABLET PO SCH (09:00)
--- NOTE | 2019-02-17 09:16 | PDOC PROGRESS REPORT ---
Subjective Progress Note for:: 02/17/19 Subjective:: Feels well. Tolerating diet well with no nausea or vomiting. No abdominal pain. Reason For Visit: SMALL BOWEL OBSTRUCTION Physical Exam Vital Signs: Temp Pulse Resp BP Pulse Ox 98.3 F 75 14 119/82 98 02/17/19 01:14 02/17/19 01:14 02/17/19 01:14 02/17/19 01:14 02/17/19 01:14 Intake & Output 02/16/19 02/17/19 02/18/19 06:59 06:59 06:59 Intake Total 1999 175 Output Total 250 Balance 1999 150 Weight 32.7 kg 36.6 kg General appearance: PRESENT: no acute distress, cooperative Respiratory exam: PRESENT: clear to auscultation delfina Cardiovascular exam: PRESENT: RRR GI/Abdominal exam: PRESENT: other - Soft, nondistended, nontender to palpation. Results Laboratory Results: 02/17/19 05:50 02/17/19 05:50 02/17/19 02/17/19 05:50 05:50 WBC 5.8 RBC 4.02 Hgb 12.6 Hct 37.3 MCV 93 MCH 31.4 MCHC 33.8 RDW 14.6 H Plt Count 276 Sodium 134.9 L Potassium 3.1 L Chloride 104 Carbon Dioxide 25 Anion Gap 6 BUN 4 L Creatinine 0.59 Est GFR ( Amer) > 60 Glucose 84 Calcium 8.2 L Magnesium 1.3 L Total Bilirubin 0.5 AST 19 Alkaline Phosphatase 109 Total Protein 5.2 L Albumin 2.5 L 02/13/19 02/13/19 07:49 07:49 Creatine Kinase 31 Troponin I < 0.012 Impressions: Acute Abdomen Series 02/13/19 08:30 IMPRESSION: Persistent gaseous distention with scattered air-fluid levels. Obstruction not excluded, but overall appearance looks slightly improved. Abdomen/Pelvis CT 02/13/19 09:41 IMPRESSION: 1. Similar appearance compared to December. Numerous dilated fluid-filled small bowel loops with probable obstruction in the deep right pelvis in distal small bowel. No perforation or significant ascites. Chest X-Ray 02/13/19 14:01 IMPRESSION: NG tube tip overlies the body of the stomach, side-port appears slightly below the GE junction. Abdomen X-Ray 02/14/19 00:00 IMPRESSION: 1. Possibly mildly improved bowel gas pattern. Nasogastric tube appropriate. Small Bowel X-Ray 02/15/19 08:00 IMPRESSION: MILD DILATATION OF JEJUNAL AND ILEAL LOOPS WITHOUT EVIDENCE OF BOWEL OBSTRUCTION. TRANSIT TIME IS NORMAL. Assessment & Plan - Diagnosis (1) Small bowel obstruction Is this a current diagnosis for this admission?: Yes Plan: Resolved. Tolerating a diet. May discharge patient home. Strongly recommend follow-up with gastroenterology for a colonoscopy as an outpatient. Discussed with patient.
[2019-02-17] MEDS: PANTOPRAZOLE SODIUM 40 MG VIAL IV SCH (09:59)
[2019-02-17] MEDS ORDERED: (PENDING PHARMACY ID) (Atenolol [Tenormin] 25 MG) PO SCH (10:00)
[2019-02-17] MEDS ORDERED: ASPIRIN 81 MG TABLET, ENT COATED PO SCH (10:00)
[2019-02-17] MEDS ORDERED: ATENOLOL 50 MG TABLET PO SCH (10:00)
[2019-02-17 14:04] VITALS: BP 119/82
[2019-02-18] MEDS ORDERED: LEVOTHYROXINE SODIUM 0.1 MG TABLET PO SCH (06:00)
--- NOTE | 2019-02-23 11:06 | PDOC DISCHARGE SUMMARY ---
General - Admit/Disc Date/PCP Admission Date/Primary Care Provider: 02/13/19 14:24 MADDIE SORIANO PA-C Discharge Date: 02/17/19 - Discharge Diagnosis (1) Small bowel obstruction Is this a current diagnosis for this admission?: Yes Summary: The patient was treated conservatively with bowel rest. Slowly she regained bowel function. She tolerated clear liquids yesterday and will have a regular lunch. If this is tolerated, then she will return home. We discussed advancing her diet slowly, eating smaller meals more frequently and considering diet modifications. (2) HTN (hypertension) Is this a current diagnosis for this admission?: Yes Summary: Good blood pressure control. Continue same (3) Hypothyroidism Is this a current diagnosis for this admission?: Yes Summary: Continue current levothyroxine (4) Hypoglycemia Is this a current diagnosis for this admission?: Yes Summary: Better on PO diet (5) Hypokalemia Is this a current diagnosis for this admission?: Yes Summary: Resolved. Continue oral diet (6) Malnutrition of mild degree (Bowman: 75% to less than 90% of standard weight) Is this a current diagnosis for this admission?: Yes Summary: BMI only 15. Patient's intake has been poor. She is also weak. - Additional Information Resuscitation Status: Full Code Discharge Diet: Cardiac Discharge Activity: Activity As Tolerated Home Medications: Atenolol [Tenormin] 25 mg PO DAILY 07/18/18 Levothyroxine Sodium [Synthroid 0.1 mg Tablet] 0.1 mg PO Q6AM 07/18/18 Calcium Carbonate [Calcium] 1,200 mg PO BID 01/02/19 Cholecalciferol (Vitamin D3) [Vitamin D3 1000 Unit Tablet] 2,000 unit PO DAILY 01/02/19 Multivitamin [Tab-A-Sherrie (Multiple Vitamin) Tablet] 1 tab PO DAILY 01/02/19 Acetaminophen [Tylenol Extra Strength 500 mg Tablet] 1,000 mg PO QHS 02/13/19 Aspirin [Ecotrin 81 mg EC Tablet] 81 mg PO DAILY 02/13/19 History of Present Illness Patient complains of: Abdominal Pain History of Present Illness: SG OSHEA is a 88 year old female with SBO just 1-2 weeks ago. Returns with Abdo pain, Nausea and vomiting. She was referred to the hospitalist service for admission. Hospital Course Hospital Course: Unremarkable hospital course. Conservative care with bowel rest. Obstruction resolved. Diet advanced and tolerated so patient was discharged to home. Physical Exam Vital Signs: Temp Pulse Resp BP Pulse Ox 97.9 F 70 16 119/82 96 02/17/19 13:50 02/17/19 13:50 02/17/19 13:50 02/17/19 13:50 02/17/19 13:50 General appearance: PRESENT: no acute distress, well-developed Head exam: PRESENT: atraumatic, normocephalic Mouth exam: PRESENT: moist, tongue midline Respiratory exam: PRESENT: clear to auscultation delfina, symmetrical, unlabored. ABSENT: rales, rhonchi, tachypnea, wheezes Cardiovascular exam: PRESENT: RRR, +S1, +S2 GI/Abdominal exam: PRESENT: normal bowel sounds, soft. ABSENT: distended, guarding, tenderness Rectal exam: PRESENT: deferred Musculoskeletal exam: PRESENT: ambulatory, other - decreased muscle mass Neurological exam: PRESENT: alert, awake, oriented to person, oriented to place, oriented to time, oriented to situation, CN II-XII grossly intact Psychiatric exam: PRESENT: appropriate affect, normal mood. ABSENT: agitated, anxious Focused psych exam: ABSENT: delusional, restlessness Results Laboratory Results: 02/17/19 05:50 02/17/19 05:50 02/13/19 02/13/19 07:49 07:49 Creatine Kinase 31 Troponin I < 0.012 Impressions: Acute Abdomen Series 02/13/19 08:30 IMPRESSION: Persistent gaseous distention with scattered air-fluid levels. Obstruction not excluded, but overall appearance looks slightly improved. Abdomen/Pelvis CT 02/13/19 09:41 IMPRESSION: 1. Similar appearance compared to December. Numerous dilated fluid-filled small bowel loops with probable obstruction in the deep right pelvis in distal small bowel. No perforation or significant ascites. Chest X-Ray 02/13/19 14:01 IMPRESSION: NG tube tip overlies the body of the stomach, side-port appears slightly below the GE junction. Abdomen X-Ray 02/14/19 00:00 IMPRESSION: 1. Possibly mildly improved bowel gas pattern. Nasogastric tube appropriate. Small Bowel X-Ray 02/15/19 08:00 IMPRESSION: MILD DILATATION OF JEJUNAL AND ILEAL LOOPS WITHOUT EVIDENCE OF BOWEL OBSTRUCTION. TRANSIT TIME IS NORMAL. Qualifiers PATIENT BEING DISCHARGED WITH ANY OF THE FOLLOWING DIAGNOSIS: No Acute Heart Failure - Is this a Heart Failure Patient?: No Plan Discharge Plan: Discharge to home. Follow-up with PCP. monitor and consider adjusting diet as noted above. Time Spent: Greater than 30 Minutes
== END 2019-02-17 16:38 | disposition home or self-care (01) | DRG 392 ==
LOC: ER 07:19 → EH 14:24 → 5 18:40
PROVIDERS: ADMIT Internal Medicine; ATTEND Internal Medicine
DX: K59.03 Drug induced constipation (principal); Z68.1 Body mass index [BMI] 19.9 or less, adult; E44.1 Mild protein-calorie malnutrition; I25.10 Atherosclerotic heart disease of native coronary artery without angina pectoris; E78.5 Hyperlipidemia, unspecified; I10 Essential (primary) hypertension; E03.9 Hypothyroidism, unspecified; E16.2 Hypoglycemia, unspecified; E87.6 Hypokalemia; E78.00 Pure hypercholesterolemia, unspecified; Z90.49 Acquired absence of other specified parts of digestive tract; Z79.899 Other long term (current) drug therapy; Z88.1 Allergy status to other antibiotic agents; Z79.890 Hormone replacement therapy
CPT/HCPCS: 36415; 71045; 74019; 74022; 74177; 74250; 80048; 80053; 81001; 82550; 82962; 83690; 83735; 84484; 85025; 85027; 93005; 93010; 96361; 96374; 99285; J1610; J1644; J2405; J3480; J7030; J7042; S0164